=== PATIENT | male | born 1950 | race Caucasian/White ===

== ENCOUNTER → 2019-05-18 08:27 | Outpatient (CLI) | payer OTHER, SELFPAY ==
[2019-05-18 09:22] LABS: Add Manual Diff / Slide Review NO; Basophils Absolute Auto 0 /uL (0-100); Basophils Percent Auto 0.8 % (0-2); Eosinophils Absolute Auto 100 /uL (0-450); Eosinophils Percent Auto 2.9 % (2-4); Hematocrit 45.2 % (41-53); Hemoglobin 15.3 g/dL (13.5-17.5); Lymphocytes Absolute Auto 1200 /uL (1100-4500); Lymphocytes Percent Auto 24.1 % (25-40); Mean Corpuscular HGB Conc 33.9 % (30-36); Mean Corpuscular Hemoglobin 29.2 PG (26-34); Monocytes Absolute Auto 500 /uL (0-900); Monocytes Percent Auto 10.5 % (3-14); Neutrophils Absolute Auto 3100 /uL (1500-7000); Neutrophils Percent Auto 61.7 % (50-75); Platelet Count 166 X10^3/uL (150-400); Red Blood Cell Count 5.25 X10^6/uL (4.5-5.9); Red Cell Distribution Width 14.4 % (11.6-14.8)
[2019-05-18 09:26] LABS: Alanine Aminotransferase 28 IU/L (21-72); Albumin 4.6 g/dL (3.5-5.0); Albumin Globulin Ratio 1.8 (1.0-2.8); Alkaline Phosphatase 48 U/L (38-126); Aspartate Aminotransferase 26 IU/L (17-59); BUN Creatinine Ratio 18.8 (6-22); Bilirubin Total 0.7 mg/dL (0.2-1.3); Blood Urea Nitrogen 15 mg/dL (9-20); Calcium 9.6 mg/dL (8.4-10.2); Carbon Dioxide 28 mmol/L (22-32); Chloride 102 mmol/L (98-107); Cholesterol 183 mg/dL (140-199); Estimated Glomerular Filt Rate > 60.0 mL/min (>60); Globulin 2.5 g/dL (1.7-4.1); Glucose 128 mg/dL (80-110); HDL Cholesterol 49 mg/dL (40-60); HEMOLYSIS < 15 (0-50); LDL Cholesterol Calculated 92 mg/dL (<100); Potassium 4.8 mmol/L (3.4-5.1); Sodium 140 mmol/L (137-145); Total Protein 7.1 g/dL (6.3-8.2); Triglycerides 212 mg/dL (35-150)
[2019-05-18 09:56] LABS: Thyroid Stimulating Hormone 2.25 uIU/mL (0.47-4.68)
== END ==
PROVIDERS: PCP Family Medicine; Visit Provider Internal Medicine Cardiovascular Disease
DX: I48.2 Chronic atrial fibrillation (principal); E78.5 Hyperlipidemia, unspecified
CPT/HCPCS: 36415; 80053; 80061; 83735; 84443; 85025

== ENCOUNTER → 2020-06-13 08:29 | Outpatient (CLI) | payer MEDICARE, SELFPAY ==
[2020-06-13 09:09] LABS: Add Manual Diff / Slide Review NO; Basophils Absolute Auto 0 /uL (0-100); Eosinophils Absolute Auto 100 /uL (0-450); Eosinophils Percent Auto 2.3 % (2-4); Hematocrit 44.8 % (41-53); Hemoglobin 14.9 g/dL (13.5-17.5); Lymphocytes Absolute Auto 1200 /uL (1100-4500); Lymphocytes Percent Auto 29.4 % (25-40); Mean Corpuscular HGB Conc 33.3 % (30-36); Monocytes Absolute Auto 400 /uL (0-900); Monocytes Percent Auto 9.1 % (3-14); Neutrophils Absolute Auto 2400 /uL (1500-7000); Neutrophils Percent Auto 58.2 % (50-75); Platelet Count 158 X10^3/uL (150-400); Red Blood Cell Count 5.15 X10^6/uL (4.5-5.9); Red Cell Distribution Width 13.8 % (11.6-14.8); White Blood Cell Count 4.1 X10^3/uL (4.5-11.0)
[2020-06-13 09:19] LABS: Hemoglobin A1C% w Est Avg Glu 6.4 % (4.0-6.0)
[2020-06-13 09:25] LABS: Alanine Aminotransferase 34 IU/L (<50); Albumin 4.7 g/dL (3.5-5.0); Albumin Globulin Ratio 1.8 (1.0-2.8); Alkaline Phosphatase 52 U/L (38-126); Aspartate Aminotransferase 35 IU/L (17-59); BUN Creatinine Ratio 19.4 (6-22); Blood Urea Nitrogen 14 mg/dL (9-20); Calcium 9.4 mg/dL (8.4-10.2); Carbon Dioxide 25 mmol/L (22-32); Chloride 104 mmol/L (98-107); Cholesterol 191 mg/dL (140-199); Estimated Glomerular Filt Rate > 60.0 mL/min (>60); Globulin 2.6 g/dL (1.7-4.1); Glucose 114 mg/dL (80-110); HDL Cholesterol 51 mg/dL (40-60); HEMOLYSIS < 15 (0-50); LDL Cholesterol Calculated 97 mg/dL (<100); Potassium 4.3 mmol/L (3.4-5.1); Sodium 137 mmol/L (137-145); Total Protein 7.3 g/dL (6.3-8.2); Triglycerides 216 mg/dL (35-150)
[2020-06-13 09:55] LABS: TSH w/ Reflex to FT4 2.19 uIU/mL (0.47-4.68)
== END ==
PROVIDERS: PCP Registered Nurse Diabetes Educator; Referring Provider Registered Nurse Diabetes Educator; Visit Provider Registered Nurse Diabetes Educator
DX: E78.00 Pure hypercholesterolemia, unspecified (principal); R73.01 Impaired fasting glucose; I48.20 Chronic atrial fibrillation, unspecified
CPT/HCPCS: 36415; 80053; 80061; 83036; 84443; 85025

== ENCOUNTER → 2020-08-22 09:04 | Outpatient (CLI) | payer MEDICARE, SELFPAY ==
--- NOTE | 2020-08-22 | DI.ECHO.S_ITS ---
[place] +---------+ [facility] +---------+ : : [address] : [address] : : : : [id number] : : : : Phone: [phone]---------+ Echocardiogram Report + + :Name: EMERY YARBROUGH Study Date: 08/22/2020 Height: 70 in : :[facility] Location: [facility] Weight: 219 lb : : Gender: Male BSA: 2.2 m2 : :: 1950 Age: 70 yrs BP: 129/86 mmHg: :Reason For Study: Mitral Valve- Prolapse : :Ordering Physician: Luna : :Romelia Peralta Performed By: Siomara Page : + + Interpretation Summary The patient was in atrial fibrillation with heart rates between 59-82 bpm during the exam. The left ventricle is normal in size. Left ventricular ejection fraction is estimated to be 50 +/- 5%. The right ventricle is normal in size and function. There is borderline mitral valve prolapse. There is prolapse of the posterior mitral valve leaflet(s). There is moderate mitral regurgitation. There is mild tricuspid regurgitation. The right ventricular systolic pressure is estimated to be at least 26 mmHg based on an estimated right atrial pressure of 8 mm Hg. Procedure: A two-dimensional transthoracic echocardiogram with color flow and Doppler was performed. The study quality was technically adequate. There is no prior echocardiogram noted for this patient. The patient was in atrial fibrillation with heart rates between 59-82 bpm during the exam. Left Ventricle: The left ventricle is normal in size. Proximal septal thickening is noted. There is no echo evidence for significant left ventricular outflow tract obstruction. There is no thrombus. Left ventricular ejection fraction is estimated to be 50 +/- 5%. There is a mild dyssynchronous contraction pattern, consistent with a conduction abnormality. Diastolic function could not be accurately assessed due to atrial fibrillation. Right Ventricle: The right ventricle is normal in size and function. Atria: There is severe biatrial enlargement. The right atrium is mildly dilated. There is no Doppler evidence for an interatrial shunt. Mitral Valve: The mitral valve leaflets appear mildly thickened, but open well. The mitral valve leaflets are slightly calcified. There is prolapse of the posterior mitral valve leaflet(s). There is borderline mitral valve prolapse. There is moderate mitral regurgitation. Aortic Valve: The aortic valve is trileaflet. The aortic valve opens well. There is no aortic valve stenosis. No aortic regurgitation is present. Tricuspid Valve: The tricuspid valve is normal. There is mild tricuspid regurgitation. The right ventricular systolic pressure is estimated to be at least 26 mmHg based on an estimated right atrial pressure of 8 mm Hg. Pulmonic Valve: The pulmonic valve is not well visualized. There is trace pulmonic regurgitation. Great Vessels: The aortic root is normal size. The ascending aorta is at the upper limits of normal in size. The pulmonary artery is not well visualized, but is probably normal size. The IVC is dilated (diameter is greater than 2.1 cm) yet it collapses greater than 50% with a sniff. This suggests a right atrial pressure of 8 mm Hg. Pericardium/ Pleura There is no pericardial effusion. There is no pleural effusion. MMode/2D Measurements & Calculations LVIDd: 4.9 cm LVOT diam: 2.3 cm LVIDs: 4.0 cm Ao root diam: 3.9 cm FS: 18.3 % asc Aorta Diam: 3.5 cm EPSS: 0.35 cm IVSd: 0.84 cm LVPWd: 0.82 cm LV richardson. diameter/BSA (cm/m^2): 2.3 LV sys. diameter/BSA (cm/m^2): 1.9 LA A2 area: 32.9 cm2 RA long axis: 5.6 cm LA A4 area: 35.4 cm2 RA area: 30.2 cm2 LA length (vol): 6.8 cm RA vol: 139.5 ml LA vol: 145.5 ml RA : 64.3 ml/m2 LA vol index: 67.1 ml/m2 IVC diam: 2.2 cm RVD1 (basal): 4.2 cm TAPSE: 1.9 cm Doppler Measurements & Calculations Ao V2 max: 93.2 cm/sec LVOT Max Darwin: 62.0 cm/sec Ao V2 mean: 64.4 cm/sec LV V1 max P.6 mmHg Ao max P.5 mmHg LV V1 VTI: 11.2 cm Ao mean P.9 mmHg LIN(I,D): 2.5 cm2 Ao V2 VTI: 18.3 cm LIN(V,D): 2.7 cm2 sev ratio: 0.61 LIN indexed to BSA (cm^2/m^2): 1.1 Med Peak E' Darwin: 9.2 cm/sec TR max darwin: 209.3 cm/sec Lat Peak E' Darwin: 12.0 cm/sec TR max P.6 mmHg PA V2 max: 61.0 cm/sec PA V2 mean: 41.7 cm/sec PA mean P.77 mmHg PA Accel Time: 0.10 sec SV(LVOT): 45.6 ml Reading Physician:12:28 PM
== END ==
PROVIDERS: PCP Registered Nurse Diabetes Educator; Referring Provider Registered Nurse Diabetes Educator; Visit Provider Internal Medicine Cardiovascular Disease
DX: I08.1 Rheumatic disorders of both mitral and tricuspid valves (principal)
CPT/HCPCS: 93306

== ENCOUNTER → 2021-07-27 08:45 | Outpatient (CLI) | payer OTHER, SELFPAY ==
[2021-07-27 10:11] LABS: Hemoglobin 15.2 g/dL (13.5-17.5); Mean Corpuscular Hemoglobin 28.8 PG (26-34); Mean Corpuscular Volume 87.4 fL (80-100); Platelet Count 154 X10^3/uL (150-400); Red Blood Cell Count 5.26 X10^6/uL (4.5-5.9); Red Cell Distribution Width 13.8 % (11.6-14.8); White Blood Cell Count 4.2 X10^3/uL (4.5-11.0)
[2021-07-27 10:17] LABS: Hemoglobin A1C% w Est Avg Glu 6.1 % (4.0-6.0)
[2021-07-27 10:32] LABS: Alanine Aminotransferase 28 IU/L (<50); Albumin 4.7 g/dL (3.5-5.0); Albumin Globulin Ratio 1.9 (1.0-2.8); Alkaline Phosphatase 52 U/L (38-126); Aspartate Aminotransferase 31 IU/L (17-59); BUN Creatinine Ratio 21.4 (6-22); Bilirubin Total 0.9 mg/dL (0.2-1.3); Blood Urea Nitrogen 15 mg/dL (9-20); Calcium 9.5 mg/dL (8.4-10.2); Carbon Dioxide 31 mmol/L (22-32); Chloride 101 mmol/L (98-107); Cholesterol 182 mg/dL (140-199); Estimated Glomerular Filt Rate > 60.0 mL/min (>60); Globulin 2.5 g/dL (1.7-4.1); Glucose 111 mg/dL (80-110); HDL Cholesterol 54 mg/dL (40-60); HEMOLYSIS < 15 (0-50); LDL Cholesterol Calculated 91 mg/dL (<100); Potassium 4.7 mmol/L (3.4-5.1); Sodium 140 mmol/L (137-145); Total Protein 7.2 g/dL (6.3-8.2); Triglycerides 184 mg/dL (35-150)
[2021-07-27 10:56] LABS: TSH w/ Reflex to FT4 2.73 uIU/mL (0.47-4.68)
== END ==
PROVIDERS: PCP Registered Nurse Diabetes Educator; Referring Provider Registered Nurse Diabetes Educator; Visit Provider Registered Nurse Diabetes Educator
DX: E78.00 Pure hypercholesterolemia, unspecified (principal); R73.01 Impaired fasting glucose; I10 Essential (primary) hypertension
CPT/HCPCS: 36415; 80053; 80061; 83036; 84443; 85027; 86900; 86901

== ENCOUNTER → 2022-07-14 12:35 | Outpatient (CLI) | payer OTHER, SELFPAY ==
--- NOTE | 2022-07-14 12:37 | DI.ECHO.S_ITS ---
[place] +---------+ Hospital +---------+ : : [address] : : : : [id number] : : : : Phone: [phone] : [phone]---------+ Echocardiogram Report + + :Name: EMERY YARBROUGH Study Date: 07/14/2022 Height: 70.5 in: :[facility] ReadingLocation: Weight: 205 lb : : Gender: Male BSA: 2.1 m2 : :: 1950 Age: 72 yrs BP: 131/87 mmHg: :Reason For Study: MITRAL PROLAPSE : :Ordering Physician: JACK, : :NAHID Performed By: Christina Pruett : :Referring: NAHID SANTIAGO : + + Interpretation Summary The left ventricle is normal in size. The ejection fraction is estimated to be 50-55%. Previously LVEF 50A?5%. The right ventricle is mildly dilated. The right ventricular systolic function is normal. There is prolapse of the posterior mitral valve leaflet(s). There is borderline mitral valve prolapse. There is moderate mitral regurgitation. Compared to the prior echo study, there has been no change in the severity of mitral regurgitation. There is mild tricuspid regurgitation. Compared to the prior echo exam, there has been no change in TR severity. The right ventricular systolic pressure is estimated to be at least 28 mmHg based on an estimated right atrial pressure of 3 mm Hg. Procedure: A two-dimensional transthoracic echocardiogram with color flow and Doppler was performed. The study quality was technically adequate. There is no prior echocardiogram noted for this patient. The patient was in atrial fibrillation with heart rates between 63-83 bpm during the exam. Left Ventricle: The left ventricle is normal in size. Proximal septal thickening is noted. There is no thrombus. The ejection fraction is estimated to be 50-55%. There is a mild dyssynchronous contraction pattern, consistent with a conduction abnormality. Diastolic function could not be accurately assessed due to atrial fibrillation. E/E' med: 5.4. No significant diastolic dysfunction. Right Ventricle: The right ventricle is mildly dilated. The right ventricular systolic function is normal. Atria: The left atrium is severely dilated. Both atria have remained unchanged in size since the prior echo exam. The right atrium is severely dilated. There is no Doppler evidence for an interatrial shunt. Mitral Valve: There is mild mitral annular calcification. The mitral valve leaflets are slightly calcified. The mitral valve leaflets appear borderline thickened, but open well. There is borderline mitral valve prolapse. There is prolapse of the posterior mitral valve leaflet(s). There is moderate mitral regurgitation. Compared to the prior echo study, there has been no change in the severity of mitral regurgitation. Mostly central jet. Aortic Valve: The aortic valve is trileaflet. The aortic valve opens well. The aortic valve is slightly calcified. There is no aortic valve stenosis. There is trace aortic regurgitation. Tricuspid Valve: The tricuspid valve is normal in structure and function. There is mild tricuspid regurgitation. The right ventricular systolic pressure is estimated to be at least 28 mmHg based on an estimated right atrial pressure of 3 mm Hg. Compared to the prior echo exam, there has been no change in TR severity. Pulmonic Valve: The pulmonic valve is not well seen, but is grossly normal. There is mild pulmonic regurgitation. Great Vessels: The aortic root is normal size. The dimensions of the ascending aorta are normal. The IVC is of normal diameter and collapses greater than 50% with a sniff. This suggests a low right atrial pressure of 3 mm Hg. Pericardium/ Pleura There is no pericardial effusion. There is no pleural effusion. MMode/2D Measurements & Calculations LVIDd: 4.9 cm LVOT diam: 2.3 cm LVIDs: 3.3 cm Ao root diam: 3.7 cm FS: 33.8 % asc Aorta Diam: 3.6 cm EPSS: 0.68 cm Ao Arch Diam (Prox Trans): 3.2 cm IVSd: 0.92 cm LVPWd: 1.1 cm LV richardson. diameter/BSA (cm/m^2): 2.3 LV sys. diameter/BSA (cm/m^2): 1.5 LA A2 area: 38.1 cm2 RA long axis: 6.1 cm LA A4 area: 34.4 cm2 RA area: 27.2 cm2 LA length (vol): 7.2 cm RA vol: 103.0 ml LA vol: 153.4 ml RA : 48.6 ml/m2 LA vol index: 72.4 ml/m2 IVC diam: 1.9 cm RVD1 (basal): 4.6 cm TAPSE: 2.0 cm Doppler Measurements & Calculations Ao V2 max: 94.4 cm/sec LVOT Max Darwin: 75.0 cm/sec Ao V2 mean: 66.9 cm/sec LV V1 max P.3 mmHg Ao max P.6 mmHg LV V1 VTI: 15.1 cm Ao mean P.0 mmHg LIN(I,D): 3.5 cm2 Ao V2 VTI: 17.7 cm LIN(V,D): 3.2 cm2 sev ratio: 0.85 LIN indexed to BSA (cm^2/m^2): 1.6 MV E max darwin: 83.4 cm/sec TR max darwin: 248.1 cm/sec MV A max darwin: 1.7 cm/sec TR max P.6 mmHg MV E/A: 49.2 PA V2 max: 86.0 cm/sec Med Peak E' Darwin: 15.4 cm/sec PA V2 mean: 55.4 cm/sec E/E' med: 5.4 PA mean P.5 mmHg Lat Peak E' Darwin: 15.0 cm/sec PA pr(Accel): 39.6 mmHg E/E' lat: 5.6 E/e' average: 5.5 MV dec time: 0.18 sec MR ERO: 0.16 cm2 MR PISA: 2.3 cm2 SV(LVOT): 61.1 ml MR flow rate: 85.7 cm3/sec MR PISA radius: 0.61 cm Reading Physician:10:02 AM
== END ==
PROVIDERS: PCP Registered Nurse Diabetes Educator; Referring Provider Internal Medicine Cardiovascular Disease; Visit Provider Internal Medicine Cardiovascular Disease
DX: I08.1 Rheumatic disorders of both mitral and tricuspid valves
CPT/HCPCS: 93306

== ENCOUNTER → 2022-08-13 11:14 | Outpatient (CLI) | payer OTHER, SELFPAY ==
[2022-08-13 11:50] LABS: Hemoglobin 15.3 g/dL (13.5-17.5); Mean Corpuscular HGB Conc 33.3 % (30-36); Mean Corpuscular Hemoglobin 28.9 PG (26-34); Mean Corpuscular Volume 86.8 fL (80-100); Platelet Count 149 X10^3/uL (150-400); Red Blood Cell Count 5.29 X10^6/uL (4.5-5.9); Red Cell Distribution Width 14.3 % (11.6-14.8)
[2022-08-13 12:08] LABS: Hemoglobin A1C% w Est Avg Glu 5.7 % (4.0-6.0)
[2022-08-13 12:35] LABS: Alanine Aminotransferase 27 IU/L (<50); Albumin 4.6 g/dL (3.5-5.0); Albumin Globulin Ratio 1.5 (1.0-2.8); Alkaline Phosphatase 58 U/L (38-126); Aspartate Aminotransferase 30 IU/L (17-59); BUN Creatinine Ratio 20.9 (6-22); Bilirubin Total 0.8 mg/dL (0.2-1.3); Blood Urea Nitrogen 14 mg/dL (9-20); Carbon Dioxide 30 mmol/L (22-32); Chloride 100 mmol/L (98-107); Cholesterol 175 mg/dL (140-199); Estimated Glomerular Filt Rate > 60 mL/min (>60); Globulin 3.1 g/dL (1.7-4.1); Glucose 106 mg/dL (80-110); HDL Cholesterol 52 mg/dL (40-60); HEMOLYSIS < 15 (0-50); LDL Cholesterol Calculated 96 mg/dL (<100); Potassium 4.2 mmol/L (3.4-5.1); Sodium 139 mmol/L (137-145); Total Protein 7.7 g/dL (6.3-8.2); Triglycerides 135 mg/dL (35-150)
[2022-08-13 13:43] LABS: TSH w/ Reflex to FT4 1.93 uIU/mL (0.47-4.68)
== END ==
PROVIDERS: PCP Registered Nurse Diabetes Educator; Referring Provider Internal Medicine Cardiovascular Disease; Visit Provider Internal Medicine Cardiovascular Disease
DX: I10 Essential (primary) hypertension (principal); R73.01 Impaired fasting glucose; E78.5 Hyperlipidemia, unspecified; I48.20 Chronic atrial fibrillation, unspecified
CPT/HCPCS: 36415; 80053; 80061; 83036; 84443; 85027

== ENCOUNTER → 2022-09-13 11:01 | Outpatient (CLI) | payer OTHER, SELFPAY ==
[2022-09-13 11:53] LABS: Add Manual Diff / Slide Review NO; Basophils Absolute Auto 0 /uL (0-100); Basophils Percent Auto 0.9 % (0-2); Eosinophils Absolute Auto 100 /uL (0-450); Eosinophils Percent Auto 1.9 % (2-4); Hematocrit 44.3 % (41-53); Lymphocytes Absolute Auto 900 /uL (1100-4500); Lymphocytes Percent Auto 23.7 % (25-40); Mean Corpuscular HGB Conc 33.8 % (30-36); Mean Corpuscular Hemoglobin 29.1 PG (26-34); Mean Corpuscular Volume 85.9 fL (80-100); Monocytes Absolute Auto 300 /uL (0-900); Monocytes Percent Auto 8.7 % (3-14); Neutrophils Absolute Auto 2600 /uL (1500-7000); Neutrophils Percent Auto 64.8 % (50-75); Platelet Count 155 X10^3/uL (150-400); Red Blood Cell Count 5.16 X10^6/uL (4.5-5.9); Red Cell Distribution Width 13.9 % (11.6-14.8)
[2022-09-14 14:17] LABS: Prostate Specific Antigen Scrn 2.29 ng/mL (0.1-4.0)
== END ==
PROVIDERS: PCP Registered Nurse Diabetes Educator; Referring Provider Registered Nurse Diabetes Educator; Visit Provider Registered Nurse Diabetes Educator
DX: D69.6 Thrombocytopenia, unspecified (principal); Z12.5 Encounter for screening for malignant neoplasm of prostate
CPT/HCPCS: 36415; 85025; G0103

== ENCOUNTER → 2023-08-26 07:54 | Outpatient (CLI) | payer OTHER, SELFPAY ==
--- NOTE | 2023-08-26 07:57 | DI.ECHO.S_ITS ---
[place] +---------+ Hospital +---------+ : : [address] : : : : [id number] : : : : Phone: [phone] +---------+ Echocardiogram Report + + :Name: EMERY YARBROUGH Study Date: 08/26/2023 Height: 70 in : :[facility] ReadingLocation: Weight: 210 lb : : Gender: Male BSA: 2.1 m2 : :: 1950 Age: 73 yrs BP: 118/73 mmHg: :Reason For Study: Mitral Valve Prolapse : :Ordering Physician: JACK, : :NAHID Performed By: Jennie Mayen : :Referring: NAHID SANTIAGO : + + Interpretation Summary The patient was in atrial fibrillation with heart rates between 64-97 bpm during the exam. The left ventricle is normal in size. The left ventricular ejection fraction is normal. The ejection fraction is estimated to be 60-65%. Previous LVEF 50 to 55%. The right ventricle is mildly dilated. The right ventricular systolic function is normal. No obvious prolapse of posterior mitral leaflet. Previously borderline prolapse. There is moderate mitral regurgitation. Compared to the prior echo study, there has been no change in the severity of mitral regurgitation. There is mild tricuspid regurgitation. Compared to the prior echo exam, there has been no change in TR severity. The right ventricular systolic pressure is estimated to be at least 24 mmHg based on an estimated right atrial pressure of 3 mm Hg. Procedure: A two-dimensional transthoracic echocardiogram with color flow and Doppler was performed. The study quality was technically adequate. Comparison is made with the echocardiogram of 07/14/2022. The patient was in atrial fibrillation with heart rates between 64-97 bpm during the exam. Left Ventricle: The left ventricle is normal in size. Proximal septal thickening is noted. Left ventricular wall thickness is mildly increased. There is no thrombus. The ejection fraction is estimated to be 60-65%. The left ventricular ejection fraction is normal. There are no focal wall motion abnormalities. Diastolic function could not be accurately assessed due to atrial fibrillation. Right Ventricle: The right ventricle is mildly dilated. The right ventricular systolic function is normal. Atria: The left atrium is severely dilated. There has been no significant change since the previous study. Right atrial size is normal. The right atrium has significantly decreased in size since the prior echo exam. There is no Doppler evidence for an interatrial shunt. Mitral Valve: The mitral valve leaflets are slightly calcified. There is mild mitral annular calcification. No obvious prolapse of posterior mitral leaflet. Previously borderline prolapse. There is no mitral valve stenosis. There is moderate mitral regurgitation. Compared to the prior echo study, there has been no change in the severity of mitral regurgitation. Aortic Valve: The aortic valve is trileaflet. There is mild aortic valve sclerosis. There is no aortic valve stenosis. There is trace aortic regurgitation. Tricuspid Valve: The tricuspid valve is normal. There is no tricuspid stenosis. There is mild tricuspid regurgitation. Compared to the prior echo exam, there has been no change in TR severity. The right ventricular systolic pressure is estimated to be at least 24 mmHg based on an estimated right atrial pressure of 3 mm Hg. Pulmonic Valve: The pulmonic valve is not well visualized. There is no pulmonic valvular stenosis. There is trace pulmonic regurgitation. Great Vessels: The aortic root is normal size. The ascending aorta is at the upper limits of normal in size. The pulmonary artery is normal size. The IVC is of normal diameter and collapses greater than 50% with a sniff. This suggests a low right atrial pressure of 3 mm Hg. Pericardium/ Pleura There is no pericardial effusion. There is no pleural effusion. MMode/2D Measurements & Calculations LVIDd: 3.7 cm LVOT diam: 2.2 cm LVIDs: 2.7 cm Ao root diam: 3.5 cm FS: 27.0 % asc Aorta Diam: 3.6 cm IVSd: 1.1 cm LVPWd: 1.3 cm LV richardson. diameter/BSA (cm/m^2): 1.7 LV sys. diameter/BSA (cm/m^2): 1.3 LA A2 area: 28.1 cm2 RA long axis: 5.7 cm LA A4 area: 25.8 cm2 RA area: 16.8 cm2 LA length (vol): 6.3 cm RA vol: 42.0 ml LA vol: 98.5 ml RA : 19.7 ml/m2 LA vol index: 46.2 ml/m2 RVD1 (basal): 4.6 cm LVLs ap4: 6.2 cm LVLd ap2: 7.1 cm TAPSE_phl: 1.9 cm LVLs ap2: 6.4 cm Doppler Measurements & Calculations Ao V2 max: 103.0 cm/sec LVOT Max Darwin: 90.2 cm/sec Ao V2 mean: 70.7 cm/sec LV V1 max P.3 mmHg Ao max P.0 mmHg LV V1 VTI: 17.4 cm Ao mean P.0 mmHg LIN(I,D): 3.5 cm2 Ao V2 VTI: 19.0 cm LIN(V,D): 3.3 cm2 sev ratio: 0.92 LIN indexed to BSA (cm^2/m^2): 1.6 Med Peak E' Darwin: 14.3 cm/sec TR max darwin: 226.0 cm/sec Lat Peak E' Darwin: 17.4 cm/sec TR max P.7 mmHg SV(LVOT): 66.1 ml AV VR_phl: 0.88 LIN(VTI)/BSA_phl: 1.6 Reading Physician:01:42 PM
== END ==
PROVIDERS: PCP Registered Nurse Diabetes Educator; Referring Provider Internal Medicine Cardiovascular Disease; Visit Provider Internal Medicine Cardiovascular Disease
DX: I08.3 Combined rheumatic disorders of mitral, aortic and tricuspid valves (principal)
CPT/HCPCS: 93306

== ENCOUNTER → 2024-02-03 14:15 | Outpatient (CLI) | payer OTHER, SELFPAY ==
[2024-02-03 14:56] LABS: Influenza A - CEPHEID Flu A NEGATIVE (NEGATIVE); Influenza B - CEPHEID Flu B NEGATIVE (NEGATIVE); Respiratory Syncytial Virus Negative (Negative)
[2024-02-03 14:59] LABS: COVID-19 CEPHEID 4-PLEX PCR Negative (Negative)
== END ==
PROVIDERS: PCP Registered Nurse Diabetes Educator; Visit Provider Nurse Practitioner Family
DX: J06.9 Acute upper respiratory infection, unspecified (principal)
CPT/HCPCS: 0241U

== ENCOUNTER → 2024-08-02 10:13 | Outpatient (CLI) | payer OTHER, SELFPAY ==
[2024-08-02 11:28] LABS: Hematocrit 43.6 % (41-53); Hemoglobin 14.6 g/dL (13.5-17.5); Mean Corpuscular HGB Conc 33.5 % (30-36); Mean Corpuscular Hemoglobin 29.2 PG (26-34); Mean Corpuscular Volume 87.1 fL (80-100); Platelet Count 167 X10^3/uL (150-400); Red Blood Cell Count 5.01 X10^6/uL (4.5-5.9); Red Cell Distribution Width 14.1 % (11.6-14.8); White Blood Cell Count 3.3 X10^3/uL (4.5-11.0)
[2024-08-02 11:36] LABS: Hemoglobin A1C% w Est Avg Glu 5.9 % (4.0-6.0)
[2024-08-02 11:47] LABS: Alanine Aminotransferase 33 IU/L (<50); Albumin 4.4 g/dL (3.5-5.0); Albumin Globulin Ratio 1.8 (1.0-2.8); Alkaline Phosphatase 53 U/L (38-126); Aspartate Aminotransferase 36 IU/L (17-59); BUN Creatinine Ratio 14.1 (6-22); Bilirubin Total 0.9 mg/dL (0.2-1.3); Blood Urea Nitrogen 10 mg/dL (9-20); Calcium 9.3 mg/dL (8.4-10.2); Carbon Dioxide 28 mmol/L (22-32); Chloride 101 mmol/L (98-107); Cholesterol 166 mg/dL (140-199); Estimated Glomerular Filt Rate > 60 mL/min (>60); Globulin 2.4 g/dL (1.7-4.1); Glucose 124 mg/dL (80-110); HDL Cholesterol 45 mg/dL (40-60); HEMOLYSIS < 15 (0-50); LDL Cholesterol Calculated 93 mg/dL (<100); Potassium 4.5 mmol/L (3.4-5.1); Sodium 134 mmol/L (137-145); Total Protein 6.8 g/dL (6.3-8.2); Triglycerides 138 mg/dL (35-150)
== END ==
PROVIDERS: PCP Registered Nurse Diabetes Educator; Referring Provider Registered Nurse Diabetes Educator; Visit Provider Registered Nurse Diabetes Educator
DX: I10 Essential (primary) hypertension (principal); R73.01 Impaired fasting glucose; E78.5 Hyperlipidemia, unspecified; Z13.1 Encounter for screening for diabetes mellitus; E78.00 Pure hypercholesterolemia, unspecified
CPT/HCPCS: 36415; 80053; 80061; 83036; 85027

== ENCOUNTER → 2025-04-04 07:51 | Outpatient (CLI) | payer OTHER, SELFPAY ==
--- NOTE | 2025-04-04 07:52 | DI.ECHO.S_ITS ---
[place] +---------+ Hospital : : [address] : [address] : : [id number] : : Phone: [phone] Echocardiogram Report + + :Name: EMERY YARBROUGH Study Date: 04/04/2025 Height: 70 in : :[facility] ReadingLocation: Weight: 215 lb : : Gender: Male BSA: 2.2 m2 : :: 1950 Age: 74 yrs BP: 127/77 mmHg: :Reason For Study: MITRAL VALVE REGURGITATION : :Ordering Physician: DREAD, : :TOM Landaverde Performed By: Evert Lara : :Referring: TOM CANADA W : + + Interpretation Summary The left ventricle is normal in size. Left ventricular ejection fraction is estimated to be 55 +/- 5%. LVEF is fluctuating. In July 2020, 50 +/- 5%. In June 2022, 50 to 55%. July 2023, 60 to 65%. The right ventricle is borderline dilated. The right ventricular systolic function is normal. The left atrium is severely dilated. The left atrium has remained unchanged in size since the prior echo exam. There is mild to moderate mitral regurgitation. Previously moderate MR. There is mild to moderate tricuspid regurgitation. Previously mild TR. The right ventricular systolic pressure is estimated to be at least 35 mmHg based on an estimated right atrial pressure of 3 mm Hg. Previously 24 mmHg. Procedure: A two-dimensional transthoracic echocardiogram with color flow and Doppler was performed. The study quality was technically adequate. Comparison is made with the echocardiogram of 08/26/2023. The patient was in atrial fibrillation with controlled ventricular rate during the exam. Left Ventricle: The left ventricle is normal in size. Proximal septal thickening is noted. There is no ventricular septal defect visualized. There is no thrombus. Left ventricular ejection fraction is estimated to be 55 +/- 5%. There are no focal wall motion abnormalities. Diastolic function could not be accurately assessed due to atrial fibrillation. Right Ventricle: The right ventricle is borderline dilated. There has been no significant change since the previous study. The right ventricular systolic function is normal. Atria: The left atrium is severely dilated. The left atrium has remained unchanged in size since the prior echo exam. Right atrial size is normal. There is no Doppler evidence for an interatrial shunt. Mitral Valve: The mitral valve leaflets are mildly calcified. There is a flat closure plane of the the mitral valve leaflets. There is mild to moderate mitral regurgitation. Aortic Valve: The aortic valve is trileaflet. The aortic valve is slightly calcified. The aortic valve opens well. There is trace aortic regurgitation. Tricuspid Valve: The tricuspid valve leaflets are thin and pliable. The tricuspid valve is normal in structure but is abnormal in function. The tricuspid valve is normal. There is mild to moderate tricuspid regurgitation. The right ventricular systolic pressure is estimated to be at least 35 mmHg based on an estimated right atrial pressure of 3 mm Hg. Pulmonic Valve: The pulmonic valve is not well visualized. There is no pulmonic valvular regurgitation. Great Vessels: The aortic root is normal size. The pulmonary artery is normal size. The IVC is of normal diameter and collapses greater than 50% with a sniff. This suggests a low right atrial pressure of 3 mm Hg. Pericardium/ Pleura There is no pericardial effusion. There is no pleural effusion. MMode/2D Measurements & Calculations LVIDd: 5.0 cm LVOT diam: 2.5 cm LVIDs: 3.7 cm Ao root diam: 3.7 cm FS: 26.9 % EPSS: 0.67 cm IVSd: 1.1 cm LVPWd: 1.0 cm LV richardson. diameter/BSA (cm/m^2): 2.3 LV sys. diameter/BSA (cm/m^2): 1.7 LA A2 area: 42.6 cm2 RA long axis: 4.9 cm LA A4 area: 37.9 cm2 RA area: 14.1 cm2 LA length (vol): 6.9 cm RA vol: 34.1 ml LA vol: 197.9 ml RA : 15.8 ml/m2 LA vol index: 91.9 ml/m2 IVC diam: 1.9 cm RVD1 (basal): 3.9 cm RVD2 (mid): 3.4 cm TAPSE: 2.2 cm Doppler Measurements & Calculations Ao V2 max: 108.2 cm/sec LVOT Max Darwin: 74.2 cm/sec Ao V2 mean: 70.5 cm/sec LV V1 max P.2 mmHg Ao max P.7 mmHg LV V1 VTI: 13.2 cm Ao mean P.2 mmHg LIN(I,D): 3.3 cm2 Ao V2 VTI: 18.7 cm LIN(V,D): 3.3 cm2 sev ratio: 0.70 LIN indexed to BSA (cm^2/m^2): 1.6 MV E max darwin: 57.4 cm/sec TR max darwin: 288.1 cm/sec MV A max darwin: 16.2 cm/sec TR max P.2 mmHg MV E/A: 3.5 PA V2 max: 88.2 cm/sec Med Peak E' Darwin: 14.8 cm/sec PA V2 mean: 46.7 cm/sec E/E' med: 3.9 PA mean P.1 mmHg Lat Peak E' Darwin: 12.0 cm/sec PA pr(Accel): 67.0 mmHg E/E' lat: 4.8 E/e' average: 4.3 MV dec time: 0.16 sec SV(LVOT): 62.5 ml Reading Physician:04:43 PM
== END ==
PROVIDERS: PCP Registered Nurse Diabetes Educator; Referring Provider Nurse Practitioner; Visit Provider Nurse Practitioner
DX: I08.1 Rheumatic disorders of both mitral and tricuspid valves (principal)
CPT/HCPCS: 93306

== ENCOUNTER → 2025-05-11 09:09 | Outpatient (CLI) | payer OTHER, SELFPAY ==
[2025-05-11 11:08] LABS: Hematocrit 43.7 % (41-53); Hemoglobin 14.7 g/dL (13.5-17.5); Mean Corpuscular HGB Conc 33.8 % (30-36); Mean Corpuscular Hemoglobin 29.4 PG (26-34); Mean Corpuscular Volume 87.1 fL (80-100); Platelet Count 182 X10^3/uL (150-400)
[2025-05-11 11:31] LABS: Alanine Aminotransferase 21 IU/L (<50); Albumin 4.5 g/dL (3.5-5.0); Albumin Globulin Ratio 1.9 (1.0-2.8); Alkaline Phosphatase 65 U/L (38-126); Blood Urea Nitrogen 13 mg/dL (9-20); Calcium 9.2 mg/dL (8.4-10.2); Carbon Dioxide 30 mmol/L (22-32); Chloride 102 mmol/L (98-107); Cholesterol 176 mg/dL (140-199); Estimated Glomerular Filt Rate > 60 mL/min (>60); Globulin 2.4 g/dL (1.7-4.1); Glucose 105 mg/dL (70-99); HDL Cholesterol 42 mg/dL (40-60); HEMOLYSIS < 15 (0-50); Potassium 4.6 mmol/L (3.4-5.1); Sodium 135 mmol/L (137-145); Total Protein 6.9 g/dL (6.3-8.2); Triglycerides 161 mg/dL (35-150)
[2025-05-11 13:28] LABS: Hemoglobin A1C% w Est Avg Glu 5.7 % (4.0-6.0)
== END ==
PROVIDERS: PCP Registered Nurse Diabetes Educator; Referring Provider Nurse Practitioner; Visit Provider Nurse Practitioner
DX: E78.5 Hyperlipidemia, unspecified (principal); R73.01 Impaired fasting glucose; I10 Essential (primary) hypertension; I48.91 Unspecified atrial fibrillation; Z79.899 Other long term (current) drug therapy
CPT/HCPCS: 36415; 80053; 80061; 83036; 85027

== ENCOUNTER 2025-08-14 16:19 | Inpatient (IN) | payer OTHER, SELFPAY ==
[2025-08-14] VITALS (12 sets, daily range): BP systolic 100–130; BP diastolic 49–63; PULSE 92–111; RESP 23–44; TEMP 36–37.8; O2SAT 87–100; BMI 28.5
--- NOTE | 2025-08-14 16:45 | EKG_ITS ---
[address] [address] [place] [address] Test Date: 2025-08-14 Pat Name: David Kent Department: [facility] Room: Gender: Male Online Journalist: JERRY : 1950 Requested By: Order Number: [id number] Reading MD: Manny Heart MD Measurements Intervals [place] Rate: 113 P: DC: QRS: -43 QRSD: 98 T: 24 QT: 316 QTc: 433 Interpretive Statements Atrial fibrillation with rapid ventricular response Left axis deviation Nonspecific T wave abnormality NO PRIOR TRACING Electronically Signed On 08-15-2025 7:37:51 PDT by Manny Heart MD
--- NOTE | 2025-08-14 16:45 | DI.RAD.S_ITS ---
PROCEDURE: XR CHEST 1V INDICATIONS: Shortness of breath TECHNIQUE: One view of the chest was acquired. COMPARISON: None. FINDINGS AND IMPRESSION: No dense airspace disease or pleural effusion on this single view study. Mild cardiomegaly. Degenerative osseous changes. Dictated by: Karlo Stratton M.D. on 08/14/2025 at 18:15 Approved by: Karlo Stratton M.D. on 08/14/2025 at 18:16
[2025-08-14 17:13] LABS: Add Manual Diff / Slide Review NO; Hematocrit 44.7 % (41-53); Hemoglobin 15.1 g/dL (13.5-17.5); Lymphocytes Absolute Auto 300 /uL (1100-4500); Mean Corpuscular HGB Conc 33.9 % (30-36); Mean Corpuscular Hemoglobin 29.1 PG (26-34); Mean Corpuscular Volume 85.9 fL (80-100); Platelet Count 138 X10^3/uL (150-400)
[2025-08-14 17:23] LABS: INR 1.8 (0.9-1.3); Prothrombin Time 19.8 SECONDS (9.4-12.5)
--- NOTE | 2025-08-14 17:23 | DI.CT.S_ITS ---
PROCEDURE: CT CHEST ABD PEL W CON INDICATIONS: Fever nausea vomiting TECHNIQUE: After the administration of intravenous contrast, 5 mm thick sections acquired from the lung apices to the symphysis. 5 mm coronal and sagittal reformats were performed, with additional 7 mm MIP reformats through the lungs. For radiation dose reduction, the following was used: automated exposure control, adjustment of mA and/or kV according to patient size. COMPARISON: None. FINDINGS: Image quality: Mild motion artifact Lungs and pleura: No dense airspace disease or pleural effusion. Mild lower lung opacities and atelectasis are present. Mediastinum, heart, and esophagus: Cardiomegaly. Coronary calcifications. No enlarged lymph nodes identified by size criteria. Chest wall and thyroid: Unremarkable Liver: Unremarkable Gallbladder and biliary system: Unremarkable, nondilated Pancreas: No ductal dilation Spleen: Nonenlarged Adrenals: No discrete nodules Kidneys: No solid renal mass. Left upper pole renal cyst. No hydronephrosis. Vessels and lymph nodes: The main portal vein is patent. Mild aortoiliac atherosclerotic calcifications. No abdominal aneurysm. No enlarged lymph nodes identified by size criteria. Bowel and peritoneum: No small bowel obstruction. Diffuse colonic diverticulosis. Moderate rectal stool ball. No acute bowel inflammation identified. No drainable abscess or ascites. Body wall: Mild left fat containing inguinal hernia. Pelvis: Under distended urinary bladder. Prostatomegaly and heterogeneous appearance, nonspecific and not well assessed on CT Bones: No aggressive appearing osseous finding. Diffuse degenerative changes are seen. IMPRESSION: Mild dependent lung opacities and atelectasis. No large airspace consolidation or pleural effusion. Consider future imaging surveillance to assess for resolution. Cardiomegaly and coronary calcifications. No acute finding in the abdomen/pelvis. Other incidental findings above. Dictated by: Karlo Stratton M.D. on 08/14/2025 at 18:45 Approved by: Karlo Stratton M.D. on 08/14/2025 at 18:50
--- NOTE | 2025-08-14 17:23 | DI.RAD.S_ITS ---
PROCEDURE: XR ANKLE LT MIN 3V INDICATIONS: Pain/swelling TECHNIQUE: 3 views of the ankle were acquired. COMPARISON: None. FINDINGS AND IMPRESSION: No relevant comparisons are available. Fixation screws are seen throughout the talus and medial malleolus, some may be broken or had portions removed. Age-indeterminate fracture deformities and periarticular bone fragments are seen in the superior posterior talus and around the lateral and medial malleoli. Diffuse soft tissue swelling. Possibly post-traumatic arthritic changes and joint space loss throughout the tibiotalar and subtalar joints. If there is further concern, consider cross-sectional imaging. Dictated by: Karlo Stratton M.D. on 08/14/2025 at 18:26 Approved by: Karlo Stratton M.D. on 08/14/2025 at 18:28
--- NOTE | 2025-08-14 17:25 | ED.NAVMDI ---
HPI - Nausea/Vomiting/Diarrhea General Chief complaint: Shortness of Breath/Dyspnea Stated complaint: Low Oxygen Level 84, dizziness, low grade temp Time Seen by Provider: 08/14/25 17:08 Source: patient Mode of arrival: Family Vehicle History of Present Illness HPI Narrative: Patient here for nausea and vomiting since yesterday. Has left medial ankle redness and swelling for the past 2 days. Patient had surgery on his left ankle years ago. Patient denies any recent foreign travel no known sick contacts. Patient does have history of atrial fibrillation on Pradaxa and metoprolol followed by cardiology [facility] Dr. Peralta. Fever noted. Patient is requiring supplemental oxygen. No prior history of lung disease. Patient states does feel short of breath. Related Data Home Medications ?Medication ?Instructions ?Recorded ?Confirmed fluticasone propionate 50 2 spray intranasal DAILY PRN 04/02/19 09/05/24 mcg/actuation nasal allergy symptoms spray,suspension (Flonase Allergy Relief) Previous Rx's ?Medication ?Instructions ?Recorded diph,pertuss(acel),tet vac(PF) 2 0.5 ml IM ONCE Encounter for 02/04/21 Lf-(2.5-5-3-5mcg)-5 Lf/0.5 mL IM Immunization #0.5 mL syringe (Adacel (Tdap Adolesn/Adult)(PF)) atorvastatin 20 mg tablet 20 mg PO DAILY #90 tabs 07/28/21 dabigatran etexilate 75 mg capsule 75 mg PO BID #180 caps 07/28/21 (Pradaxa) metoprolol succinate 25 mg 25 mg PO DAILY #90 tabs 07/28/21 tablet,extended release 24 hr Allergies Allergy/AdvReac Type Severity Reaction Status Date / Time No Known Drug Allergies Allergy Verified 08/14/25 17:07 Review of Systems Review of Systems Narrative: GENERAL: Positive chills, fatigue, malaise, fever, sweats. HEENT: Negative sinus pain, ear pain, sore throat RESPIRATORY: Positive dyspnea, negative cough CARDIOVASCULAR: Negative chest pain, palpitations GASTROINTESTINAL: Positive vomiting, nausea, negative abdominal pain : Negative dysuria, frequency, hematuria MUSCULOSKELETAL: Negative muscle or bony pain SKIN: Negative rash, skin lesions, positive skin wound NEUROLOGIC: Negative weakness, numbness ROS Unobtainable: All systems reviewed & are unremarkable except as noted in HPI and below Patient History Medical History (Updated 08/14/25 @ 18:53 by Garcia Perdomo MD) History of nonmelanoma skin cancer Dyslipidemia Hypertension Impaired fasting glucose Family History Brother Age: 80 Pulmonary emphysema, unspecified emphysema type Father Age: 103 Alzheimer's dementia without behavioral disturbance, Alzheimer's disease of unspecified onset Grandmother Secondary hypertension, unspecified Glaucoma Mother Age: 102 Breast cancer genetic susceptibility Skin cancer Arthritis Grandmother Alzheimer's dementia without behavioral disturbance, Alzheimer's disease of unspecified onset Social History household members: spouse Smoking Status: Never smoker second hand exposure: No alcohol intake: current substance use type: does not use Smoking Status: Never smoker Exam Narrative Exam Narrative: GENERAL: in no distress, not toxic not dyspneic HEAD: Normocephalic. EYES: Pupils equal round ENT: Mucous membranes moist. NECK: Trachea midline. CARDIOVASCULAR: Tachycardic, irregularly irregular RESPIRATORY: Clear to auscultation. Breath sounds equal bilaterally. No wheezes, rales, or rhonchi. Patient is speaking full sentences. GASTROINTESTINAL: Abdomen soft, non-tender EXTREMITIES: No gross deformities. Examination left medial ankle there is erythema at surgical site and extending erythema proximally. No crepitus no pain out of portion exam. It is mildly tender to touch. Patient has chronic limited range of motion due to fixed hardware to the ankle. Foot otherwise warm soft pink. No necrotizing fasciitis. No crepitus. BACK: No flank tenderness. NEURO: AOx4. Clear speech SKIN: Warm and dry PSYCH: Not anxious, is cooperative Initial Vital Signs Initial Vital Signs: Vital Signs Temperature 100.1 F H 08/14/25 17:06 Pulse Rate 109 H 08/14/25 17:06 Respiratory Rate 29 H 08/14/25 17:06 Blood Pressure 130/63 08/14/25 17:06 Pulse Oximetry 100 08/14/25 17:06 Oxygen Delivery Method Room Air 08/14/25 17:06 Course Orders Ordered: Acetaminophen (Acetaminophen 325 Mg Tablet) 650 mg PO Q6H PRN PRN Reason: Fever/Mild Pain (1-3) Al Hydrox/Mg Hydrox/Simethicone (Mag Hydrox/Alum/Simeth 30 Ml Udc) 30 ml PO Q6HR PRN PRN Reason: Dyspepsia Albuterol (Albuterol 2.5 Mg/3 Ml Neb (Adult)) 2.5 mg INH [id number] PRN PRN Reason: Shortness Of Breath Or Wheezing Atorvastatin Calcium (Atorvastatin 20 Mg Tablet) 20 mg PO DAILY [facility] Benzonatate (Benzonatate 100 Mg Capsule) 100 mg PO TID PRN PRN Reason: Cough Calcium Carbonate (Calcium Carbonate 500 Mg Tab) 1,000 mg PO Q4HR PRN PRN Reason: Dyspepsia Dabigatran (Dabigatran 75 Mg Capsule) 75 mg PO BID [facility] Last Admin: 08/14/25 20:53 Dose: Not Given Documented By: DENISE Doxycycline Hyclate (Doxycycline Hyclate 100 Mg Tablet) 100 mg PO BID [facility] Last Admin: 08/14/25 22:13 Dose: 100 mg Documented By: FM Furosemide (Furosemide 40 Mg/4 Ml Vial) 40 mg IV Q12HR [facility] Last Admin: 08/15/25 01:43 Dose: 40 mg Documented By: RODRIGUE Guaifenesin (Guaifenesin Er 600 Mg Tab) 600 mg PO Q12HR PRN PRN Reason: Cough Vancomycin HCl (Vancomycin) 1,250 mg in 250 mls @ 250 mls/hr IV Q12H [facility] Metoprolol Succinate (Metoprolol Er 25 Mg Tablet) 25 mg PO DAILY [facility] Naloxone HCl (Naloxone 0.4 Mg/Ml Vial) 0.2 mg IV Q2MIN PRN PRN Reason: Opiate Reversal Ondansetron HCl (Ondansetron 4 Mg/2 Ml Inj) 4 mg IV Q8HR PRN PRN Reason: Nausea And Vomiting Ondansetron HCl (Ondansetron 4 Mg Odt) 4 mg PO Q8HR PRN PRN Reason: Nausea And Vomiting Oxycodone HCl (Oxycodone Ir 5 Mg Tablet) 5 mg PO Q3H PRN PRN Reason: Pain, Moderate (4-6) Pantoprazole Sodium (Pantoprazole Dr 20 Mg Tablet) 20 mg PO 0600 [facility] Last Admin: 08/15/25 05:05 Dose: 20 mg Documented By: MELODY Sennosides (Sennosides 8.6 Mg Tablet) 17.2 mg PO BEDTIME [facility] Last Admin: 08/14/25 22:12 Dose: 17.2 mg Documented By: RODRIGUE Vancomycin HCl (Vancomycin Per Pharmacy) 1 request MISC NOW PRN PRN Reason: Wound Healing Vancomycin HCl (Vancomycin Trough) 1 request MIS 1230 [facility] Stop: 08/16/25 12:31 Discontinued Medications Acetaminophen (Acetaminophen 325 Mg Tablet) 975 mg PO NOW ONE Stop: 08/14/25 17:26 Last Admin: 08/14/25 18:15 Dose: 975 mg Documented By: IDALIA Albuterol/Ipratropium (Albuterol/Ipratropium 3 Ml Ampul) 3 ml INH [id number] [facility] Piperacillin Sod/Tazobactam (Sod 4.5 gm/ Sodium Chloride) 100 mls @ 200 mls/hr IV NOW ONE Stop: 08/14/25 17:30 Last Infusion: 08/14/25 19:13 Dose: Infused Documented By: Admin: 08/14/25 18:15 Dose: 200 mls/hr Documented By: IDALIA Ceftriaxone Sodium 1,000 mg/ (Sodium Chloride) 100 mls @ 200 mls/hr IV Q24H [facility] Last Infusion: 08/14/25 22:51 Dose: Infused Documented By: Admin: 08/14/25 21:03 Dose: 200 mls/hr Documented By: DENISE Vancomycin HCl 1,750 mg/ (Sodium Chloride) 500 mls @ 250 mls/hr IV Q24H [facility] Last Admin: 08/15/25 05:18 Dose: Not Given Documented By: MELODY Vancomycin HCl/Dextrose (Vancomycin) 2,000 mg in 400 mls @ 200 mls/hr IV NOW ONE Stop: 08/15/25 02:59 Last Infusion: 08/15/25 04:55 Dose: Infused Documented By: Admin: 08/15/25 01:43 Dose: 200 mls/hr Documented By: RODRIGUE Ibuprofen (Ibuprofen 400 Mg Tablet) 800 mg PO NOW ONE Stop: 08/14/25 19:21 Last Admin: 08/14/25 21:03 Dose: 800 mg Documented By: DENISE Vital Signs Vital signs: Vital Signs - 8 hr 08/14/25 17:06 08/14/25 17:19 08/14/25 17:30 Temperature 100.1 F H Pulse Rate 109 H 110 H 103 H Respiratory Rate 29 H Blood Pressure 130/63 Pulse Oximetry 100 87 L 96 Oxygen Delivery Method Room Air 08/14/25 18:04 Temperature Pulse Rate 108 H Respiratory Rate Blood Pressure Pulse Oximetry 97 Oxygen Delivery Method MDM - Nausea/Vomiting/Diarrhea Lab Data 08/15/25 04:43 08/15/25 04:43 Labs: Lab Results 08/14/25 08/14/25 08/14/25 Range/Units 17:02 17:07 18:44 WBC 11.4 H (4.5-11.0) X10^3/uL RBC 5.20 (4.5-5.9) X10^6/uL Hgb 15.1 (13.5-17.5) g/dL Hct 44.7 (41-53) % MCV 85.9 (80-100) fL MCH 29.1 (26-34) PG MCHC 33.9 (30-36) % RDW 14.9 H (11.6-14.8) % Plt Count 138 L (150-400) X10^3/uL Neut % (Auto) 93.1 H (50-75) % Lymph % (Auto) 2.5 L (25-40) % Nye % (Auto) 4.2 (3-14) % Eos % (Auto) 0.0 L (2-4) % Baso % (Auto) 0.2 (0-2) % Neut # (Auto) 82461 H (8813-7806) /uL Lymph # (Auto) 300 L (1753-9461) /uL Nye # (Auto) 500 (0-900) /uL Eos # (Auto) 0 (0-450) /uL Baso # (Auto) 0 (0-100) /uL PT 19.8 H (9.4-12.5) SECONDS INR 1.8 H (0.9-1.3) Sodium 133 L (137-145) mmol/L Potassium 4.2 (3.4-5.1) mmol/L Chloride 97 L (98-107) mmol/L Carbon Dioxide 25 (22-32) mmol/L BUN 20 (9-20) mg/dL Creatinine 0.87 (0.66-1.25) mg/dL Estimated GFR > 60 (>60) mL/min BUN/Creatinine Ratio 23.0 H (6-22) Glucose 146 H (70-99) mg/dL Lactate 1.9 (0.7-2.1) mmol/L Calcium 9.6 (8.4-10.2) mg/dL Total Bilirubin 1.6 H (0.2-1.3) mg/dL AST 75 H (17-59) IU/L ALT 31 (<50) IU/L Alkaline Phosphatase 55 (38-126) U/L Troponin I 0.015 (0.01-0.034) ng/mL NT-Pro-B Natriuret Pep 2300 H (<450) pg/mL Total Protein 8.2 (6.3-8.2) g/dL Albumin 5.0 (3.5-5.0) g/dL Globulin 3.2 (1.7-4.1) g/dL Albumin/Globulin Ratio 1.6 (1.0-2.8) Procalcitonin 1.61 H (<0.5) ng/mL Urine RBC 0-1/hpf (0-5/HPF) Urine WBC 0-1/hpf (0-5/HPF) Ur Squamous Epith Cells 0-1 /hpf (0-5/HPF) Urine Bacteria Occasional (0-1) (None) Ur Culture Indicated? Cult not indicated Vol Urine Centrifuged 10ml (spun) A.calcoaceticus-baumannii cmplx PCR Not detected (Not Detect) Bacteroides fragilis Not detected (Not Detect) Christina albicans (PCR) Not detected (Not Detect) Christina auris (PCR) Not detected (Not Detect) C. glabrata (PCR) Not detected (Not Detect) C. krusei (PCR) Not detected (Not Detect) C. parapsilosis (PCR) Not detected (Not Detect) C. tropicalis (PCR) Not detected (Not Detect) SARS-CoV-2 (PCR) Negative (Negative) C. neoform/gattii (PCR) Not detected (Not Detect) Enterobacterales (PCR) Not detected (Not Detect) E. cloacae complex PCR Not detected (Not Detect) Enterococc faecalis PCR Not detected (Not Detect) Enterococc faecium PCR Not detected (Not Detect) E. coli (PCR) Not detected (Not Detect) H. influenzae (PCR) Not detected (Not Detect) Influenza A (RT-PCR) Flu a negative (NEGATIVE) Influenza B (RT-PCR) Flu b negative (NEGATIVE) Klebsiella aerogenes (PCR) Not detected (Not Detect) Klebsiella oxytoca PCR Not detected (Not Detect) Klebsiella pneumoniae Not detected (Not Detect) List. monocytogenes PCR Not detected (Not Detect) N. meningitidis (PCR) Not detected (Not Detect) Proteus species (PCR) Not detected (Not Detect) RSV (PCR) Negative (Negative) Salmonella spp. (PCR) Not detected (Not Detect) Serratia marcescens PCR Not detected (Not Detect) Staphylococcus sp PCR Not detected (Not Detect) Staph aureus (PCR) Not detected (Not Detect) mecA/C & MREJ Resist Gene Not applicable (Not Detect) mecA/C-Methicil Resis Gene Not applicable (Not Detect) mcr-1 Colistin Res Gene PCR Not applicable (Not Detect) Staph epidermidis (PCR) Not detected (Not Detect) Staph lugdunensis PCR Not detected (Not Detect) S. maltophilia (PCR) Not detected (Not Detect) Streptococcus sp PCR Detected (Not Detect) Group A Strep (PCR) Not detected (Not Detect) Strep agalactiae (PCR) Not detected (Not Detect) Strep pneumoniae (PCR) Not detected (Not Detect) P. aeruginosa (PCR) Not detected (Not Detect) Rosemary/B-Vanco Res Genes Not applicable (Not Detect) blaIMP Car res Gene PCR Not applicable (Not Detect) KPC-Carbap Res Gene PCR Not applicable (Not Detect) blaNDM Car Res Gene PCR Not applicable (Not Detect) OXA-48 Carbapenem Resis Gene (PCR) Not applicable (Not Detect) blaVIM Car Res Gene PCR Not applicable (Not Detect) CTX-M Gene Resistance (PCR) Not applicable (Not Detect) Urine Dip Bedside Urine Glucose Negative Bedside Urine Bilirubin - Negative Bedside Urine Ketone - Negative Urine Specific Brawley 1.015 Bedside Urine Occult Blood +/- Bedside Urine pH 6.0 Bedside Urine Protein +/- 15 Bedside Urine Urobilinogen - Negative Bedside Urine Nitrite - Negative Bedside Urine Leukocytes - Negative Esterase Imaging Data Extremity x-ray #1: Radiologist's Impression: [address] [address] XRay Report Signed Patient: David Kent MR#: [id number] : 1950 Acct:[id number] Age/Sex: 75 / M Date of Service: 08/14/25 Loc: ED Accession Number: [id number] Procedure: XR ankle LT min 3V Ordering Provider: Garcia Perdomo MD PROCEDURE: XR ANKLE LT MIN 3V INDICATIONS: Pain/swelling TECHNIQUE: 3 views of the ankle were acquired. COMPARISON: None. FINDINGS AND IMPRESSION: No relevant comparisons are available. Fixation screws are seen throughout the talus and medial malleolus, some may be broken or had portions removed. Age-indeterminate fracture deformities and periarticular bone fragments are seen in the superior posterior talus and around the lateral and medial malleoli. Diffuse soft tissue swelling. Possibly post-traumatic arthritic changes and joint space loss throughout the tibiotalar and subtalar joints. If there is further concern, consider cross-sectional imaging. Dictated by: Karlo Stratton M.D. on 08/14/2025 at 18:26 Approved by: Karlo Stratton M.D. on 08/14/2025 at 18:28 Chest x-ray: Radiologist's Impression: [place] [address] XRay Report Signed Patient: David Kent MR#: [id number] : 1950 Acct:[id number] Age/Sex: 75 / M Date of Service: 08/14/25 Loc: ED Accession Number: [id number] Procedure: XR chest 1V Ordering Provider: Garcia Perdomo MD PROCEDURE: XR CHEST 1V INDICATIONS: Shortness of breath TECHNIQUE: One view of the chest was acquired. COMPARISON: None. FINDINGS AND IMPRESSION: No dense airspace disease or pleural effusion on this single view study. Mild cardiomegaly. Degenerative osseous changes. Dictated by: Karlo Stratton M.D. on 08/14/2025 at 18:15 Approved by: Karlo Stratton M.D. on 08/14/2025 at 18:16 CT chest abdomen pelvis: Radiologist's Impression: [place] [address] CT Scan Report Signed Patient: David Kent MR#: [id number] : 1950 Acct:[id number] Age/Sex: 75 / M Date of Service: 08/14/25 Loc: ED Accession Number: [id number] Procedure: CT chest abd pel w con Ordering Provider: Garcia Perdomo MD PROCEDURE: CT CHEST ABD PEL W CON INDICATIONS: Fever nausea vomiting TECHNIQUE: After the administration of intravenous contrast, 5 mm thick sections acquired from the lung apices to the symphysis. 5 mm coronal and sagittal reformats were performed, with additional 7 mm MIP reformats through the lungs. For radiation dose reduction, the following was used: automated exposure control, adjustment of mA and/or kV according to patient size. COMPARISON: None. FINDINGS: Image quality: Mild motion artifact Lungs and pleura: No dense airspace disease or pleural effusion. Mild lower lung opacities and atelectasis are present. Mediastinum, heart, and esophagus: Cardiomegaly. Coronary calcifications. No enlarged lymph nodes identified by size criteria. Chest wall and thyroid: Unremarkable Liver: Unremarkable Gallbladder and biliary system: Unremarkable, nondilated Pancreas: No ductal dilation Spleen: Nonenlarged Adrenals: No discrete nodules Kidneys: No solid renal mass. Left upper pole renal cyst. No hydronephrosis. Vessels and lymph nodes: The main portal vein is patent. Mild aortoiliac atherosclerotic calcifications. No abdominal aneurysm. No enlarged lymph nodes identified by size criteria. Bowel and peritoneum: No small bowel obstruction. Diffuse colonic diverticulosis. Moderate rectal stool ball. No acute bowel inflammation identified. No drainable abscess or ascites. Body wall: Mild left fat containing inguinal hernia. Pelvis: Under distended urinary bladder. Prostatomegaly and heterogeneous appearance, nonspecific and not well assessed on CT Bones: No aggressive appearing osseous finding. Diffuse degenerative changes are seen. IMPRESSION: Mild dependent lung opacities and atelectasis. No large airspace consolidation or pleural effusion. Consider future imaging surveillance to assess for resolution. Cardiomegaly and coronary calcifications. No acute finding in the abdomen/pelvis. Other incidental findings above. Dictated by: Karlo Stratton M.D. on 08/14/2025 at 18:45 Approved by: Karlo Stratton M.D. on 08/14/2025 at 18:50 [facility] Narrative Medical decision making narrative: Patient here for nausea and vomiting since yesterday. Has left medial ankle redness and swelling for the past 2 days. Patient had surgery on his left ankle years ago. Patient denies any recent foreign travel no known sick contacts. Patient does have history of atrial fibrillation on Pradaxa and metoprolol followed by cardiology [facility] Dr. Peralta. Fever noted. Patient is requiring supplemental oxygen. No prior history of lung disease. Patient states does feel short of breath MDM After history and exam, CBC CMP lactic acid procalcitonin blood culture Zosyn Tylenol normal saline CT chest abdomen pelvis Differential considered: Includes but not limited to sepsis pneumonia septic joint Medical records reviewed: No recent visit for this complaint Lab Test results independently reviewed as above. Pertinent findings: WBC 11.4 hemoglobin 15 INR 1.8 sodium 133 potassium 4.2 BUN 20 creatinine 0.87 total bilirubin 1.6 Independently reviewed EKG atrial fibrillation rate 113 Imaging studies independently reviewed: X-ray left ankle diffuse soft tissue swelling. Fixation screws seen throughout Chest x-ray no acute finding CT chest abdomen pelvis dependent lung opacities Consultations: 6:36 p.m.. I spoke with orthopedist Dr. Abad, at this time regarding the ankle would treat as cellulitis. Likely not septic joint. 7:22 p.m.. I spoke with hospitalist, Dr. Masters, will admit Re-evaluations: 6:45 p.m.. Updated patient and results and need for admission for further studies and antibiotics. They agree. Discussion: Appropriate for admission. Patient requiring supplemental oxygen. Antibiotics have been started. Cultures have been completed orthopedic services consulted. Diagnosis: Hypoxia, ankle cellulitis Discharge Plan Departure Patient Disposition: Admitted As Inpatient Clinical Impression: Cellulitis of left ankle Admit Date/Time: 08/14/25 19:27 Admit Provider: Favian Masters
[2025-08-14 17:26] LABS: Alanine Aminotransferase 31 IU/L (<50); Albumin 5.0 g/dL (3.5-5.0); Albumin Globulin Ratio 1.6 (1.0-2.8); Alkaline Phosphatase 55 U/L (38-126); Blood Urea Nitrogen 20 mg/dL (9-20); Calcium 9.6 mg/dL (8.4-10.2); Carbon Dioxide 25 mmol/L (22-32); Chloride 97 mmol/L (98-107); Estimated Glomerular Filt Rate > 60 mL/min (>60); Globulin 3.2 g/dL (1.7-4.1); Glucose 146 mg/dL (70-99); HEMOLYSIS 26 (0-50); Lactate (Lactic Acid) 1.9 mmol/L (0.7-2.1); Potassium 4.2 mmol/L (3.4-5.1); Sodium 133 mmol/L (137-145); Total Protein 8.2 g/dL (6.3-8.2)
[2025-08-14 17:38] LABS: NT-proBNP (BNP-Adult 18+) 2300 pg/mL (<450); Troponin I 0.015 ng/mL (0.01-0.034)
[2025-08-14 17:50] LABS: Influenza A - CEPHEID Flu A NEGATIVE (NEGATIVE); Influenza B - CEPHEID Flu B NEGATIVE (NEGATIVE)
[2025-08-14 17:59] LABS: COVID-19 CEPHEID 4-PLEX PCR Negative (Negative)
[2025-08-14] MEDS: PIPERACILLIN/TAZO 4.5 GM in SODIUM CHLORIDE 0.9% 100 ML IV (18:15)
[2025-08-14] MEDS: ACETAMINOPHEN 325 MG TABLET 975 MG PO (18:15)
[2025-08-14 18:20] LABS: Procalcitonin 1.61 ng/mL (<0.5)
[2025-08-14 19:07] LABS: Culture Indicated Urine Cult Not Indicated
[2025-08-14] MEDS: IBUPROFEN 400 MG TABLET 800 MG PO (21:03)
[2025-08-14] MEDS: SENNOSIDES 8.6 MG TABLET 17.2 MG PO (22:12)
[2025-08-14] MEDS: DOXYCYCLINE HYCLATE 100 MG TABLET PO (22:13)
--- NOTE | 2025-08-14 23:40 | P.HP_ITS ---
History of Present Illness History of Present Illness Date Patient Seen: 08/14/25 Time Patient Seen: 23:41 Chief complaint: Low Oxygen Level 84, dizziness, low grade temp Narrative: THe pt is a 75 yo who started noticing swelling, redness, and pain in the left ankle about 2 days ago. He denies any injury to the ankle that he is aware of, he did have surgery with screw fixation to the ankle in 2004 in [place]. He denies a hx of gout, and last year the rt ankle had cellulitis in it. The pt went to an Urgent Car today & was noted to be hypoxic ( he is normally on room air). He was started on 2 lpm NC and sent to the ER for evaluation. He denies any SOB, cough, fevers, chills, URIBE or any URI symtoms. He does not smoke, he has a hx of CHF and A-fib on Pradaxia & metoprolol. [facility] Medical History (Updated 08/14/25 @ 18:53 by Garcia Perdomo MD) History of nonmelanoma skin cancer Dyslipidemia Hypertension Impaired fasting glucose Family History Brother Age: 80 Pulmonary emphysema, unspecified emphysema type Father Age: 103 Alzheimer's dementia without behavioral disturbance, Alzheimer's disease of unspecified onset Grandmother Secondary hypertension, unspecified Glaucoma Mother Age: 102 Breast cancer genetic susceptibility Skin cancer Arthritis Grandmother Alzheimer's dementia without behavioral disturbance, Alzheimer's disease of unspecified onset Social History Smoking Status: Never smoker second hand exposure: No alcohol intake: current (a beer occasionally.) substance use type: does not use Meds Home Medications and Allergies Home Medications ?Medication ?Instructions ?Recorded ?Confirmed ?Type fluticasone propionate 50 2 spray intranasal DAILY PRN 04/02/19 09/05/24 History mcg/actuation nasal allergy symptoms spray,suspension (Flonase Allergy Relief) diph,pertuss(acel),tet vac(PF) 2 0.5 ml IM ONCE Encoun ter for 02/04/21 09/05/24 Rx Lf-(2.5-5-3-5mcg)-5 Lf/0.5 mL IM Immunization #0.5 mL syringe (Adacel (Tdap Adolesn/Adult)(PF)) atorvastatin 20 mg tablet 20 mg PO DAILY #90 tabs 03/1309/05/24 Rx dabigatran etexilate 75 mg capsule 75 mg PO BID #180 c aps 07/28/21 09/05/24 Rx (Pradaxa) metoprolol succinate 25 mg 25 mg PO DAILY #90 tabs 03/1309/05/24 Rx tablet,extended release 24 hr Allergies Allergy/AdvReac Type Severity Reaction Status Date / Time No Known Drug Allergies Allergy Verified 08/14/25 17:07 Exam Vital Signs (past 8 hours): - 08/14/25 17:06 08/14/25 17:19 08/14/25 17:30 Temperature 100.1 F H Pulse Rate 109 H 110 H 103 H Respiratory Rate 29 H Blood Pressure 130/63 Pulse Oximetry 100 87 L 96 Oxygen Delivery Method Room Air Oxygen Flow Rate 08/14/25 18:04 08/14/25 18:30 08/14/25 19:00 Temperature Pulse Rate 108 H 106 H 111 H Respiratory Rate 44 H 44 H Blood Pressure Pulse Oximetry 97 97 94 Oxygen Delivery Method Oxygen Flow Rate 08/14/25 19:30 08/14/25 20:00 08/14/25 20:30 Temperature Pulse Rate 106 H 102 H 96 H Respiratory Rate 37 H 36 H 32 H Blood Pressure Pulse Oximetry 93 90 L 91 Oxygen Delivery Method Oxygen Flow Rate 08/14/25 21:00 08/14/25 21:08 08/14/25 21:08 Temperature Pulse Rate 94 H 92 H 92 H Respiratory Rate 31 H 30 H 30 H Blood Pressure 114/57 L Pulse Oximetry 92 95 95 Oxygen Delivery Method Nasal Cannula Oxygen Flow Rate 4 08/14/25 21:53 Temperature 96.8 F L Pulse Rate 93 H Respiratory Rate 23 Blood Pressure 100/49 L Pulse Oximetry 96 Oxygen Delivery Method Oxygen Flow Rate 4 Oxygen Delivery Method Nasal Cannula Oxygen Flow Rate 4 Const General: cooperative and comfortable Resp Auscultation: clear to auscultation bilaterally Cardio Rate: tachycardic Rhythm: abnormal rhythm GI Percussion: normal to percussion Auscultation: normal bowel sounds Extrem Left lower extremity: ankle Details: pitting edema and warmth Objective Labs 08/14/25 17:02 08/14/25 17:02 Labs: Laboratory Results - last 24 hr 08/14/25 08/14/2525 17:02 17:07 18:44 WBC 11.4 H RBC 5.20 Hgb 15.1 Hct 44.7 MCV 85.9 MCH 29.1 MCHC 33.9 RDW 14.9 H Plt Count 138 L Neut % (Auto) 93.1 H Lymph % (Auto) 2.5 L [place] % (Auto) 4.2 Eos % (Auto) 0.0 L Baso % (Auto) 0.2 Neut # (Auto) 16679 H Lymph # (Auto) 300 L [place] # (Auto) 500 Eos # (Auto) 0 Baso # (Auto) 0 PT 19.8 H INR 1.8 H Sodium 133 L Potassium 4.2 Chloride 97 L Carbon Dioxide 25 BUN 20 Creatinine 0.87 Estimated GFR > 60 BUN/Creatinine Ratio 23.0 H Glucose 146 H Lactate 1.9 Calcium 9.6 Total Bilirubin 1.6 H AST 75 H ALT 31 Alkaline Phosphatase 55 Troponin I 0.015 NT-Pro-B Natriuret Pep 2300 H Total Protein 8.2 Albumin 5.0 Globulin 3.2 Albumin/Globulin Ratio 1.6 Procalcitonin 1.61 H Urine RBC 0-1/hpf Urine WBC 0-1/hpf Ur Squamous Epith Cells 0-1 /hpf Urine Bacteria Occasional (0-1) Ur Culture Indicated? Cult not indicated Vol Urine Centrifuged 10ml (spun) SARS-CoV-2 (PCR) Negative Influenza A (RT-PCR) Flu a negative Influenza B (RT-PCR) Flu b negative RSV (PCR) Negative Assessment & Plan Assessment & Plan narrative: I have reviewed the pt's presenting symptoms, labs and imaging with the ER provider and agree with the decision for admission. I have reviewed the labs personally showing a WBC of 11, elevated procalcitonin, elevated BNP of 2300, I have also reviewed the CT scan of the chest showing depentant atelactasis. 1. Left ankle cellulitis- there is known hardware in the ankle from the surgery in 2004, it does appear to be inflammed. We will start on empiric Vancomycin, check CRP, uric acid level. Recommend outpt ortho consult 2. Acute on chronic CHF- elevated BNP, hypoxic, will start the pt on lasix, consider echo, weaning the oxygen at this time. I dont think it is clear if he has a pneumonia or not. will reassess in am. 3. atrial fibrillation - continue on Pradaxa, home metoprolol , increase dose if pt becomes more tachycardic. Time-Based Coding :: [TOTAL MINUTES] spent with patient and on the chart (including review of chart, obtaining history, exam, reviewing outside data, placing orders, documenting exam and treatment plan, and counseling patient) on [DATE].
[2025-08-15] VITALS (8 sets, daily range): BP systolic 90–124; BP diastolic 55–69; PULSE 88–107; RESP 17–26; TEMP 36.1–36.7; O2SAT 93–97
[2025-08-15] MEDS: VANCOMYCIN 2,000 MG/400 ML PIGGYBACK 200 MG IV (01:43)
[2025-08-15] MEDS: FUROSEMIDE 40 MG/4 ML VIAL IV ×2 (01:43→11:58)
[2025-08-15 04:18] LABS: Acinetobacter calcoa-baumannii Not Detected (Not Detect); Bacteroides fragilis Not Detected (Not Detect); Candida auris Not Detected (Not Detect); Candida glabrata Not Detected (Not Detect); Cryptococcus neoformans/gatti Not Detected (Not Detect); Enterobacterales Not Detected (Not Detect); Enterococcus faecalis Not Detected (Not Detect); Enterococcus faecium Not Detected (Not Detect); Klebsiella aerogenes Not Detected (Not Detect); Proteus species Not Detected (Not Detect); Serratia marcescens Not Detected (Not Detect); Staphylococcus epidermidis Not Detected (Not Detect); Staphylococcus lugdunensis Not Detected (Not Detect); Staphylococcus species Not Detected (Not Detect); Stenotrophomonas maltophilia Not Detected (Not Detect); Streptococcus agalactiae (Gr B Not Detected (Not Detect); Streptococcus pneumonia Not Detected (Not Detect); Streptococcus pyogenes (Gr A) Not Detected (Not Detect); Streptococcus species Detected (Not Detect)
--- NOTE | 2025-08-15 04:50 | PC.NURSE ---
Assumed care of patient at 03:30.
[2025-08-15] MEDS: PANTOPRAZOLE DR 20 MG TABLET PO (05:05)
[2025-08-15 05:18] LABS: Add Manual Diff / Slide Review NO; Hematocrit 41.3 % (41-53); Hemoglobin 14.1 g/dL (13.5-17.5); Lymphocytes Absolute Auto 500 /uL (1100-4500); Mean Corpuscular HGB Conc 34.1 % (30-36); Mean Corpuscular Hemoglobin 29.3 PG (26-34); Mean Corpuscular Volume 85.8 fL (80-100); Platelet Count 106 X10^3/uL (150-400)
[2025-08-15 05:28] LABS: Blood Urea Nitrogen 23 mg/dL (9-20); Calcium 8.7 mg/dL (8.4-10.2); Carbon Dioxide 25 mmol/L (22-32); Chloride 99 mmol/L (98-107); Estimated Glomerular Filt Rate > 60 mL/min (>60); Glucose 125 mg/dL (70-99); HEMOLYSIS < 15 (0-50); Potassium 3.5 mmol/L (3.4-5.1); Sodium 134 mmol/L (137-145)
[2025-08-15 05:56] LABS: Uric Acid 5.0 mg/dL (3.5-8.5)
--- NOTE | 2025-08-15 06:17 | PC.NURSE ---
BP soft- 90/56, MAP 62, HR 88. Notified Dr. Masters, no new orders.
--- NOTE | 2025-08-15 08:04 | PM.PN.1 ---
Subjective Subjective Interval history: Summary: Admitted with left ankle cellulitis. S: The ankle still red and swollen, minimally painful. He has a history of a reconstruction several years ago. He was having some chills but no fevers. He was doing well with the antibiotics. Orthopedics was contacted and request an outpatient appointment after he was discharged with improvement of infection to evaluate the ankle. O: NAD, alert and oriented. Fluent speech. Lungs are clear, normal rate and effort. Heart is regular, no murmur gallop or rub. Abdomen is soft, non distended. Extremities are free of edema. Left foot and ankle are red and swollen, there is minimal tenderness, no fluctuance or purulence. This appears to be somewhat scarlatiniform in appearance. A/P: 1. Left ankle cellulitis- there is known hardware in the ankle from the surgery in 2004, it does appear to be inflammed. We will start on empiric Vancomycin, check CRP, uric acid level. Recommend outpt ortho consult 2. Acute on chronic CHF- elevated BNP, hypoxic, will start the pt on lasix, consider echo, weaning the oxygen at this time. I dont think it is clear if he has a pneumonia or not. will reassess in am. 3. atrial fibrillation - continue on Pradaxa, home metoprolol , increase dose if pt becomes more tachycardic. PLAN: -Ortho consult deferred until after discharge if he was clinical improvement. -continue Abx. -denies MRSA history, nares MRSA screen. -leg elevation. Exam Vital Signs (past 8 hours): - 08/15/25 05:18 Temperature 96.9 F L Pulse Rate 88 Respiratory Rate 18 Blood Pressure 90/56 L Pulse Oximetry 95 Oxygen Flow Rate 2 Oxygen Delivery Method Nasal Cannula Oxygen Flow Rate 2 Objective Labs 08/15/25 04:43 08/15/25 04:43 Labs: Laboratory Results - last 24 hr 08/14/25 08/14/25 08/14/25 17:02 17:07 18:44 WBC 11.4 H RBC 5.20 Hgb 15.1 Hct 44.7 MCV 85.9 MCH 29.1 MCHC 33.9 RDW 14.9 H Plt Count 138 L Neut % (Auto) 93.1 H Lymph % (Auto) 2.5 L [place] % (Auto) 4.2 Eos % (Auto) 0.0 L Baso % (Auto) 0.2 Neut # (Auto) 86215 H Lymph # (Auto) 300 L [place] # (Auto) 500 Eos # (Auto) 0 Baso # (Auto) 0 PT 19.8 H INR 1.8 H Sodium 133 L Potassium 4.2 Chloride 97 L Carbon Dioxide 25 BUN 20 Creatinine 0.87 Estimated GFR > 60 BUN/Creatinine Ratio 23.0 H Glucose 146 H Lactate 1.9 Uric Acid Calcium 9.6 Total Bilirubin 1.6 H AST 75 H ALT 31 Alkaline Phosphatase 55 Troponin I 0.015 C-Reactive Protein NT-Pro-B Natriuret Pep 2300 H Total Protein 8.2 Albumin 5.0 Globulin 3.2 Albumin/Globulin Ratio 1.6 Procalcitonin 1.61 H Urine RBC 0-1/hpf Urine WBC 0-1/hpf Ur Squamous Epith Cells 0-1 /hpf Urine Bacteria Occasional (0-1) Ur Culture Indicated? Cult not indicated Vol Urine Centrifuged 10ml (spun) A.calcoaceticus-baumannii cmplx PCR Not detected Bacteroides fragilis Not detected Christina albicans (PCR) Not detected Christina auris (PCR) Not detected C. glabrata (PCR) Not detected C. krusei (PCR) Not detected C. parapsilosis (PCR) Not detected C. tropicalis (PCR) Not detected SARS-CoV-2 (PCR) Negative C. neoform/gattii (PCR) Not detected Enterobacterales (PCR) Not detected E. cloacae complex PCR Not detected Enterococc faecalis PCR Not detected Enterococc faecium PCR Not detected E. coli (PCR) Not detected H. influenzae (PCR) Not detected Influenza A (RT-PCR) Flu a negative Influenza B (RT-PCR) Flu b negative Klebsiella aerogenes (PCR) Not detected Klebsiella oxytoca PCR Not detected Klebsiella pneumoniae Not detected List. monocytogenes PCR Not detected N. meningitidis (PCR) Not detected Proteus species (PCR) Not detected RSV (PCR) Negative Salmonella spp. (PCR) Not detected Serratia marcescens PCR Not detected Staphylococcus sp PCR Not detected Staph aureus (PCR) Not detected mecA/C & MREJ Resist Gene Not applicable mecA/C-Methicil Resis Gene Not applicable mcr-1 Colistin Res Gene PCR Not applicable Staph epidermidis (PCR) Not detected Staph lugdunensis PCR Not detected S. maltophilia (PCR) Not detected Streptococcus sp PCR Detected Group A Strep (PCR) Not detected Strep agalactiae (PCR) Not detected Strep pneumoniae (PCR) Not detected P. aeruginosa (PCR) Not detected Rosemary/B-Vanco Res Genes Not applicable blaIMP Car res Gene PCR Not applicable KPC-Carbap Res Gene PCR Not applicable blaNDM Car Res Gene PCR Not applicable OXA-48 Carbapenem Resis Gene (PCR) Not applicable blaVIM Car Res Gene PCR Not applicable CTX-M Gene Resistance (PCR) Not applicable 08/15/25 04:43 WBC 9.5 RBC 4.81 Hgb 14.1 Hct 41.3 MCV 85.8 MCH 29.3 MCHC 34.1 RDW 14.9 H Plt Count 106 L Neut % (Auto) 88.9 H Lymph % (Auto) 5.6 L [place] % (Auto) 5.1 Eos % (Auto) 0.1 L Baso % (Auto) 0.3 Neut # (Auto) 8500 H Lymph # (Auto) 500 L [place] # (Auto) 500 Eos # (Auto) 0 Baso # (Auto) 0 PT INR Sodium 134 L Potassium 3.5 Chloride 99 Carbon Dioxide 25 BUN 23 H Creatinine 0.84 Estimated GFR > 60 BUN/Creatinine Ratio 27.4 H Glucose 125 H Lactate Uric Acid 5.0 Calcium 8.7 Total Bilirubin AST ALT Alkaline Phosphatase Troponin I C-Reactive Protein 24.4 H NT-Pro-B Natriuret Pep Total Protein Albumin Globulin Albumin/Globulin Ratio Procalcitonin Urine RBC Urine WBC Ur Squamous Epith Cells Urine Bacteria Ur Culture Indicated? Vol Urine Centrifuged A.calcoaceticus-baumannii cmplx PCR Bacteroides fragilis Christina albicans (PCR) Christina auris (PCR) C. glabrata (PCR) C. krusei (PCR) C. parapsilosis (PCR) C. tropicalis (PCR) SARS-CoV-2 (PCR) C. neoform/gattii (PCR) Enterobacterales (PCR) E. cloacae complex PCR Enterococc faecalis PCR Enterococc faecium PCR E. coli (PCR) H. influenzae (PCR) Influenza A (RT-PCR) Influenza B (RT-PCR) Klebsiella aerogenes (PCR) Klebsiella oxytoca PCR Klebsiella pneumoniae List. monocytogenes PCR N. meningitidis (PCR) Proteus species (PCR) RSV (PCR) Salmonella spp. (PCR) Serratia marcescens PCR Staphylococcus sp PCR Staph aureus (PCR) mecA/C & MREJ Resist Gene mecA/C-Methicil Resis Gene mcr-1 Colistin Res Gene PCR Staph epidermidis (PCR) Staph lugdunensis PCR S. maltophilia (PCR) Streptococcus sp PCR Group A Strep (PCR) Strep agalactiae (PCR) Strep pneumoniae (PCR) P. aeruginosa (PCR) Rosemary/B-Vanco Res Genes blaIMP Car res Gene PCR KPC-Carbap Res Gene PCR blaNDM Car Res Gene PCR OXA-48 Carbapenem Resis Gene (PCR) blaVIM Car Res Gene PCR CTX-M Gene Resistance (PCR) [facility] Medical History (Updated 08/14/25 @ 18:53 by Garcia Perdomo MD) History of nonmelanoma skin cancer Dyslipidemia Hypertension Impaired fasting glucose Family History Brother Age: 80 Pulmonary emphysema, unspecified emphysema type Father Age: 103 Alzheimer's dementia without behavioral disturbance, Alzheimer's disease of unspecified onset Grandmother Secondary hypertension, unspecified Glaucoma Mother Age: 102 Breast cancer genetic susceptibility Skin cancer Arthritis Grandmother Alzheimer's dementia without behavioral disturbance, Alzheimer's disease of unspecified onset Social History household members: spouse Smoking Status: Never smoker second hand exposure: No alcohol intake: current substance use type: does not use Assessment & Plan Time-Based Coding :: [TOTAL MINUTES] spent with patient and on the chart (including review of chart, obtaining history, exam, reviewing outside data, placing orders, documenting exam and treatment plan, and counseling patient) on [DATE].
[2025-08-15] MEDS: DOXYCYCLINE HYCLATE 100 MG TABLET PO ×2 (09:59→20:04)
[2025-08-15] MEDS: ATORVASTATIN 20 MG TABLET PO (09:59)
--- NOTE | 2025-08-15 11:16 | PT.IIE ---
Current Diagnoses Cellulitis of left lower limb (08/14/25) Medical History (Last Updated 09/09/24 @ 08:47 by AURY Mccauley) Dyslipidemia History of nonmelanoma skin cancer Hypertension Impaired fasting glucose Physical Therapy Inpatient Evaluation/Re-Eval M1 PT/OT-IP Prior Functional Status Start: 08/15/25 10:35 Freq: NEEDED Status: Active Protocol: Document 08/15/25 10:35 [facility] (Rec: 08/15/25 11:16 [facility] [id number]) Medical Review Prior Functional Status Medical History Yes Reviewed Diet/Fluid Regular Consistency Communication WNL Mobility and Gait indep w/o AD, walks 10k steps a day Activities of Daily indep ADLs, cooks, cleans, drives Living and IADL's Social History Household Members spouse Living Arrangements House Number of Floors ( One Floor Floors) Number of Stairs To no KIANA Enter/Railing? Home Environment Standard Height Toilet,Walk in Shower,Tub/Shower Home Equipment Straight Cane,Grab Bars Near Toilet,Grab Bars In Shower M2 PT-IP Current Condition Start: 08/15/25 10:35 Freq: NEEDED Status: Active Protocol: Document 08/15/25 10:35 [facility] (Rec: 08/15/25 11:16 [facility] [id number]) Physical Therapy Current Condition Current Condition Evaluation Date 08/15/25 Treatment Diagnosis L ankle cellulitis, CHF M3 PT-IP Subjective Start: 08/15/25 10:35 Freq: NEEDED Status: Active Protocol: Document 08/15/25 10:35 [facility] (Rec: 08/15/25 11:16 [facility] [id number]) Subjective Physical Therapy Visit Type Type Initial Evaluation Visit Start Time 10:35 Visit Stop Time 10:58 Number of [employer]SOLE MONITOR Visits 0 Physical Therapy Visit Comments Patient Comments agreeable to get up but notes he was up earlier. knows L ankle is bad so can't use it M4 PT-IP Mobility and Gait Start: 08/15/25 10:35 Freq: NEEDED Status: Active Protocol: Document 08/15/25 10:35 [facility] (Rec: 08/15/25 11:16 [facility] [id number]) PT-Bed Mobility Assessment Supine to Sit Supine to Sit Standby Assistance,Head of Bed Elevated,Bedrails Sit to Supine Sit to Supine Standby Assistance Scooting Scooting to Edge of Independent Bed Scooting Up and Down Independent in Bed PT-Transfer Assessment Sit to and From Stand Sit to and from Moderate Assistance,Use of Upper Extremities Stand Equipment Transfer Assistive Front Wheeled Walker Device Orthotic/Prosthetic No Devices or Brace: Comments Mobility Comments supine to sit SBA w/use of rail and HOB elevated, SBA scoot to EOB. sit to stand w/cues for hand placement and 2 attempts, 2nd attempt mod A to FWW maintaining NWB on LLE until ortho consult. Pt able to hop fwd w/ Carl about 3 ft then hop backwards to bed min A and was SBA for bed mobility. LEft with call light in reach and bed alarm on after bed exercises. Gait Assessment Gait Gait Assistance Minimum Assistance Required: Distance (Feet) 3 Able to Maintain Yes Weight Bearing Status During Gait Assistive Devices Assistive Device Front Wheeled Walker Orthotic/Prosthetic No Devices or Brace: PT-Balance Assessment Sitting Balance and Reactions Static Sitting Normal Balance Ability Dynamic Sitting Normal Balance Ability Standing Balance and Reactions Static Standing Fair Balance Ability Dynamic Standing Poor Balance Ability Device Used FWW M5 PT-IP Objective Assessments Start: 08/15/25 10:35 Freq: NEEDED Status: Active Protocol: Document 08/15/25 10:35 [facility] (Rec: 08/15/25 11:16 [facility] [id number]) Orientation Orientation/Cognition Level of Alertness Alert Language Function No Deficits Noted Ability Safety Awareness Understands Safety Issues Memory Description No Deficits Noted Gross Range of Motion Upper Extremity ROM Assessment Within Functional Limits Lower Extremity ROM Assessment Within Functional Limits Impairments except L ankle limited ROM Strength Lower Extremity Strength Hip grossly 4-/5 Knee grossly 4/5 M6 PT-IP Treatment Start: 08/15/25 10:35 Freq: NEEDED Status: Active Protocol: Document 08/15/25 10:35 [facility] (Rec: 08/15/25 11:16 [facility] [id number]) Physical Therapy Treatment Exercises Exercises Ankle Pumps,Gluteal Sets,Straight Leg Raises,Supine Hip Abduction Education Education Provided Safety M7 PT-IP Assessment and Plan Start: 08/15/25 10:35 Freq: NEEDED Status: Active Protocol: Document 08/15/25 10:35 [facility] (Rec: 08/15/25 11:16 [facility] [id number]) PT Summary Assessment and Plan Potential Rehabilitation Good Potential Status of Condition Evolving at Evaluation Summary Impairments Pain,ROM,Strength,Balance,Bed Mobility,Transfers,Gait, Activity Tolerance Assessment Summary Pt presents w/dx of L ankle cellulitis but xray shows possible changes in old ankle surgery hardware and requires ortho consult. Kept pt NWB on LLE today until ortho is consulted and will follow ortho orders after. pt required assist at this time w/mobility maintaining NWB but does follow cues well. will benefit from cont PT in hospital to improve mobility. Goals Bed Mobility Goal Independent Transfer Goal Independent Gait Goal Independent,Front Wheel Walker Gait Distance 150ft Days to Meet Goals 10 Frequency of Treatment Frequency Of Once a Day Treatment Treatment Plan Physical Therapy Bed Mobility Training,Transfer Training,Gait Training, Treatment Plan Therapeutic Exercise,Balance Retraining,Neuromuscular Re-ed,Manual Therapy Weight Bearing Status Weight Bearing Non-Weight Bearing Status Recommendations To Nursing Amount of Assist 1 Person Assist Needed Discharge Recommendations PT Discharge Home with Assistance,Home Health Recommendations Transportation Needs Private Vehicle at Discharge - PT assist 1
--- NOTE | 2025-08-15 11:29 | OT.IPNOTE ---
Awaiting ortho consult and to check on pt tomorrow for OT eval.
[2025-08-15] MEDS: POTASSIUM CHLORIDE 20 MEQ TAB 40 MEQ PO (11:58)
--- NOTE | 2025-08-15 13:14 | CM.DANOTE ---
Initial DCP Assessment Note. Review EMR and PT Interview. Met with patient at bedside to discuss discharge needs.PT is alert x 4 sitting up in bed. No acute distress. Independent. Lives with . Payor:??[facility] PCP: Summary & Plan:?75 y/o male arrived to ED c/o RLE pain and swelling. Patient appeared to be SOB. Admitted INPT. Dx. PNA and RT Ankle Cellulitis. Plan: IV abx, wean oxygen. If ankle improves, Outpatient Ortho follow up. Discharge Planning/Care Management CM Discharge Assessment Start: 08/14/25 21:52 Freq: Status: Active Protocol: Document 08/15/25 13:12 (Rec: 08/15/25 13:14 [id number]) Discharge Planning Assessment Assigned Discharge Josefa Mcgill RN CM Investment Executive Provider Dr. Gonzalez Insurance [facility] Advance Directives? No History Provided By Patient Has Patient been No admitted in last 30 days? Prior Living House Arrangements Household Members spouse Type of Drives own vehicle transporation used prior to admit Independent with ADL Yes 's Is patient alert and Yes oriented? Caregiver for No Another DME Already Rented / Other Owned Comment Walking sticks Comment Might need HH Barriers to No Discharge Discharge Plan Home Review Status In Process Please Provide Date 08/15/25 Initial DC Assessment Was Performed Next Review Type Continued Stay Review
[2025-08-15] MEDS: VANCOMYCIN 1,250 MG/250 ML PIGGYBACK 250 MG IV (13:19)
--- NOTE | 2025-08-15 14:14 | PC.NURSE ---
ASSUMED CARE OF PATIENT AT 1100. REPORT RECEIVED FROM MANI BARKLEY. PT A/OX4. 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 NO C/O PAIN OR SOB AT THIS TIME. L FOOT APPEARS RED/ WARM TO TOUCH. +1 EDEMA TO L FOOT NOTED. L PEDAL PULSE. SEE EMAR FOR MEDS GIVEN. OUTPUT DOCUMENTED. NO CONCERNS OR QUESTIONS AT THIS TIME. CARE ONGOING.
[2025-08-15 15:20] LABS: MRSA (Nasal) PCR NOT DETECTED (Not Detect)
--- NOTE | 2025-08-15 16:03 | P.HP_ITS ---
History of Present Illness History of Present Illness Date Patient Seen: 08/15/25 Time Patient Seen: 15:30 Chief complaint: Low Oxygen Level 84, dizziness, low grade temp Narrative: 75-year-old male with history of left ankle surgery admitted to internal medicine service for hypoxia and was noted to have left medial ankle erythema and swelling. He states this has been going on for the last 3 days. And he was having some difficulty ambulating. At baseline he does not have very much ankle range of motion since his surgery. He states that when he moves his ankle he does not have increased pain at this time. Physical exam reveals a well-developed well-nourished 75-year-old in no acute distress Evaluation of his left lower extremity demonstrates that he has a well-healed surgical incision medially and he has medial ankle erythema and swelling. He has no palpable fluctuance. He has approximately a 10 degree arc of motion at his ankle joint and subtalar joint and does not seem to have any joint irritability. Three views of his left ankle demonstrate 2 medial malleolar screws and a total of 3 Lona implants. 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 [facility] Medical History (Updated 08/14/25 @ 18:53 by Garcia Perdomo MD) Dyslipidemia History of nonmelanoma skin cancer Hypertension Impaired fasting glucose Family History Brother Age: 80 Pulmonary emphysema, unspecified emphysema type Father Age: 103 Alzheimer's dementia without behavioral disturbance, Alzheimer's disease of unspecified onset Grandmother Secondary hypertension, unspecified Glaucoma Mother Age: 102 Breast cancer genetic susceptibility Skin cancer Arthritis Grandmother Alzheimer's dementia without behavioral disturbance, Alzheimer's disease of unspecified onset Social History household members: spouse Smoking Status: Never smoker second hand exposure: No alcohol intake: current substance use type: does not use Meds Home Medications and Allergies Home Medications ?Medication ?Instructions ?Recorded ?Confirmed ?Type fluticasone propionate 50 2 spray intranasal DAILY PRN 04/02/19 09/05/24 History mcg/actuation nasal allergy symptoms spray,suspension (Flonase Allergy Relief) diph,pertuss(acel),tet vac(PF) 2 0.5 ml IM ONCE Encoun ter for 02/04/21 09/05/24 Rx Lf-(2.5-5-3-5mcg)-5 Lf/0.5 mL IM Immunization #0.5 mL syringe (Adacel (Tdap Adolesn/Adult)(PF)) atorvastatin 20 mg tablet 20 mg PO DAILY #90 tabs 03/1308/15/25 Rx dabigatran etexilate 75 mg capsule 75 mg PO BID #180 c aps 07/28/21 08/15/25 Rx (Pradaxa) metoprolol succinate 25 mg 25 mg PO DAILY #90 tabs 03/1308/15/25 Rx tablet,extended release 24 hr Allergies Allergy/AdvReac Type Severity Reaction Status Date / Time No Known Drug Allergies Allergy Verified 08/14/25 17:07 Exam Vital Signs (past 8 hours): - 08/15/25 09:58 Pulse Rate 97 H Blood Pressure 107/55 L Oxygen Delivery Method Nasal Cannula Oxygen Flow Rate 2 Objective Labs 08/15/25 04:43 08/15/25 04:43 Labs: Laboratory Results - last 24 hr 08/14/25 08/14/25 08/14/25 17:02 17:07 18:44 WBC 11.4 H RBC 5.20 Hgb 15.1 Hct 44.7 MCV 85.9 MCH 29.1 MCHC 33.9 RDW 14.9 H Plt Count 138 L Neut % (Auto) 93.1 H Lymph % (Auto) 2.5 L [place] % (Auto) 4.2 Eos % (Auto) 0.0 L Baso % (Auto) 0.2 Neut # (Auto) 41069 H Lymph # (Auto) 300 L [place] # (Auto) 500 Eos # (Auto) 0 Baso # (Auto) 0 PT 19.8 H INR 1.8 H Sodium 133 L Potassium 4.2 Chloride 97 L Carbon Dioxide 25 BUN 20 Creatinine 0.87 Estimated GFR > 60 BUN/Creatinine Ratio 23.0 H Glucose 146 H Lactate 1.9 Uric Acid Calcium 9.6 Total Bilirubin 1.6 H AST 75 H ALT 31 Alkaline Phosphatase 55 Troponin I 0.015 C-Reactive Protein NT-Pro-B Natriuret Pep 2300 H Total Protein 8.2 Albumin 5.0 Globulin 3.2 Albumin/Globulin Ratio 1.6 Procalcitonin 1.61 H Urine RBC 0-1/hpf Urine WBC 0-1/hpf Ur Squamous Epith Cells 0-1 /hpf Urine Bacteria Occasional (0-1) Ur Culture Indicated? Cult not indicated Vol Urine Centrifuged 10ml (spun) Nasal Screen MRSA (PCR) A.calcoaceticus-baumannii cmplx PCR Not detected Bacteroides fragilis Not detected Christina albicans (PCR) Not detected Christina auris (PCR) Not detected C. glabrata (PCR) Not detected C. krusei (PCR) Not detected C. parapsilosis (PCR) Not detected C. tropicalis (PCR) Not detected SARS-CoV-2 (PCR) Negative C. neoform/gattii (PCR) Not detected Enterobacterales (PCR) Not detected E. cloacae complex PCR Not detected Enterococc faecalis PCR Not detected Enterococc faecium PCR Not detected E. coli (PCR) Not detected H. influenzae (PCR) Not detected Influenza A (RT-PCR) Flu a negative Influenza B (RT-PCR) Flu b negative Klebsiella aerogenes (PCR) Not detected Klebsiella oxytoca PCR Not detected Klebsiella pneumoniae Not detected List. monocytogenes PCR Not detected N. meningitidis (PCR) Not detected Proteus species (PCR) Not detected RSV (PCR) Negative Salmonella spp. (PCR) Not detected Serratia marcescens PCR Not detected Staphylococcus sp PCR Not detected Staph aureus (PCR) Not detected mecA/C & MREJ Resist Gene Not applicable mecA/C-Methicil Resis Gene Not applicable mcr-1 Colistin Res Gene PCR Not applicable Staph epidermidis (PCR) Not detected Staph lugdunensis PCR Not detected S. maltophilia (PCR) Not detected Streptococcus sp PCR Detected Group A Strep (PCR) Not detected Strep agalactiae (PCR) Not detected Strep pneumoniae (PCR) Not detected P. aeruginosa (PCR) Not detected Rosemary/B-Vanco Res Genes Not applicable blaIMP Car res Gene PCR Not applicable KPC-Carbap Res Gene PCR Not applicable blaNDM Car Res Gene PCR Not applicable OXA-48 Carbapenem Resis Gene (PCR) Not applicable blaVIM Car Res Gene PCR Not applicable CTX-M Gene Resistance (PCR) Not applicable 08/15/25 08/15/25 04:43 13:53 WBC 9.5 RBC 4.81 Hgb 14.1 Hct 41.3 MCV 85.8 MCH 29.3 MCHC 34.1 RDW 14.9 H Plt Count 106 L Neut % (Auto) 88.9 H Lymph % (Auto) 5.6 L [place] % (Auto) 5.1 Eos % (Auto) 0.1 L Baso % (Auto) 0.3 Neut # (Auto) 8500 H Lymph # (Auto) 500 L [place] # (Auto) 500 Eos # (Auto) 0 Baso # (Auto) 0 PT INR Sodium 134 L Potassium 3.5 Chloride 99 Carbon Dioxide 25 BUN 23 H Creatinine 0.84 Estimated GFR > 60 BUN/Creatinine Ratio 27.4 H Glucose 125 H Lactate Uric Acid 5.0 Calcium 8.7 Total Bilirubin AST ALT Alkaline Phosphatase Troponin I C-Reactive Protein 24.4 H NT-Pro-B Natriuret Pep Total Protein Albumin Globulin Albumin/Globulin Ratio Procalcitonin Urine RBC Urine WBC Ur Squamous Epith Cells Urine Bacteria Ur Culture Indicated? Vol Urine Centrifuged Nasal Screen MRSA (PCR) Not detected A.calcoaceticus-baumannii cmplx PCR Bacteroides fragilis Christina albicans (PCR) Christina auris (PCR) C. glabrata (PCR) C. krusei (PCR) C. parapsilosis (PCR) C. tropicalis (PCR) SARS-CoV-2 (PCR) C. neoform/gattii (PCR) Enterobacterales (PCR) E. cloacae complex PCR Enterococc faecalis PCR Enterococc faecium PCR E. coli (PCR) H. influenzae (PCR) Influenza A (RT-PCR) Influenza B (RT-PCR) Klebsiella aerogenes (PCR) Klebsiella oxytoca PCR Klebsiella pneumoniae List. monocytogenes PCR N. meningitidis (PCR) Proteus species (PCR) RSV (PCR) Salmonella spp. (PCR) Serratia marcescens PCR Staphylococcus sp PCR Staph aureus (PCR) mecA/C & MREJ Resist Gene mecA/C-Methicil Resis Gene mcr-1 Colistin Res Gene PCR Staph epidermidis (PCR) Staph lugdunensis PCR S. maltophilia (PCR) Streptococcus sp PCR Group A Strep (PCR) Strep agalactiae (PCR) Strep pneumoniae (PCR) P. aeruginosa (PCR) Rosemary/B-Vanco Res Genes blaIMP Car res Gene PCR KPC-Carbap Res Gene PCR blaNDM Car Res Gene PCR OXA-48 Carbapenem Resis Gene (PCR) blaVIM Car Res Gene PCR CTX-M Gene Resistance (PCR) Assessment & Plan Assessment and plan (1) Cellulitis of left ankle: Status: Acute Plan: 75-year-old male with cellulitis of his left ankle in the setting of hypoxia. I agree with IV antibiotics at this time and I will continue to monitor sure his left ankle to ensure the cellulitis improves. At this point feel any fluctuance and what little motion he has of his ankle and subtalar joint are not irritable to suggest septic arthritis at this time I recommend rest ice and elevation of the left ankle and I will continue to monitor him. Time-Based Coding :: [TOTAL MINUTES] spent with patient and on the chart (including review of chart, obtaining history, exam, reviewing outside data, placing orders, documenting exam and treatment plan, and counseling patient) on [DATE]. [employer] Document charge(s): No
[2025-08-15] MEDS: DABIGATRAN 75 MG CAPSULE PO (20:04)
[2025-08-16] VITALS (11 sets, daily range): BP systolic 96–136; BP diastolic 54–80; PULSE 97–116; RESP 16–20; TEMP 36.4–36.8; O2SAT 93–97
[2025-08-16] MEDS: FUROSEMIDE 40 MG/4 ML VIAL IV ×3 (01:13→23:19)
[2025-08-16] MEDS: VANCOMYCIN 1,250 MG/250 ML PIGGYBACK 250 MG IV (01:13)
--- NOTE | 2025-08-16 02:40 | PC.NURSE ---
Assumed care of patient at 00:30.
[2025-08-16] MEDS: PANTOPRAZOLE DR 20 MG TABLET PO (04:59)
[2025-08-16 06:24] LABS: Blood Urea Nitrogen 18 mg/dL (9-20); Calcium 8.4 mg/dL (8.4-10.2); Carbon Dioxide 25 mmol/L (22-32); Chloride 98 mmol/L (98-107); Estimated Glomerular Filt Rate > 60 mL/min (>60); Glucose 106 mg/dL (70-99); HEMOLYSIS 24 (0-50); Potassium 3.5 mmol/L (3.4-5.1); Sodium 131 mmol/L (137-145)
[2025-08-16] MEDS: METOPROLOL ER 25 MG TABLET PO (08:09)
[2025-08-16] MEDS: DOXYCYCLINE HYCLATE 100 MG TABLET PO (08:09)
[2025-08-16] MEDS: ATORVASTATIN 20 MG TABLET PO (08:09)
[2025-08-16] MEDS: DABIGATRAN 75 MG CAPSULE PO ×2 (08:10→20:29)
[2025-08-16] MEDS: POTASSIUM CHLORIDE 20 MEQ TAB 40 MEQ PO (09:23)
--- NOTE | 2025-08-16 09:34 | PM.PN.1 ---
Subjective Subjective Interval history: Summary: 75 yo who started noticing swelling, redness, and pain in the left ankle about 2 days ago. He denies any injury to the ankle that he is aware of, he did have surgery with screw fixation to the ankle in 2004 in [place]. He denies a hx of gout, and last year the rt ankle had cellulitis in it. The pt went to an Urgent Car today & was noted to be hypoxic ( he is normally on room air). He was started on 2 lpm NC and sent to the ER for evaluation. He denies any SOB, cough, fevers, chills, URIBE or any URI symtoms. He does not smoke, he has a hx of CHF and A-fib on Pradaxia & metoprolol. 08/15: Antibiotics continued, ortho did see the patient. Overnight events: Blood cultures positive for strep x2. Ankle looks better today. Antibiotics switched to cefazolin. S: Ankle feels a bit better, O2 down to 1 L. No respiratory symptoms. O: NAD, alert and oriented. Fluent speech. Lungs are clear, normal rate and effort. Heart is regular, no murmur gallop or rub. Abdomen is soft, non distended. Extremities are free of edema. Left foot is less red and warm. There is still erythema over the foot and lower leg. But this is improved. No fluctuance. IMAGING: CT of the chest, abdomen, and pelvis: Mild dependent lung opacities and atelectasis. No large airspace consolidation or pleural effusion. Consider future imaging surveillance to assess for resolution. Cardiomegaly and coronary calcifications. No acute finding in the abdomen/pelvis. Ankle x-ray: No relevant comparisons are available. Fixation screws are seen throughout the talus and medial malleolus, some may be broken or had portions removed. Age-indeterminate fracture deformities and periarticular bone fragments are seen in the superior posterior talus and around the lateral and medial malleoli. Diffuse soft tissue swelling. Possibly post-traumatic arthritic changes and joint space loss throughout the tibiotalar and subtalar joints. If there is further concern, consider cross-sectional imaging. Chest x-ray: No dense airspace disease or pleural effusion on this single view study. Mild cardiomegaly. A/P: 1. Left ankle cellulitis- there is known hardware in the ankle from the surgery in 2004, it does appear to be inflammed. We will start on empiric Vancomycin, check CRP, uric acid level. Recommend outpt ortho consult 2. Acute on chronic CHF- elevated BNP, hypoxic, will start the pt on lasix, consider echo, weaning the oxygen at this time. I dont think it is clear if he has a pneumonia or not. will reassess in am. 3. atrial fibrillation - continue on Pradaxa, home metoprolol , increase dose if pt becomes more tachycardic. 4. Strept bacteremia, new. PLAN: -Ortho consult deferred until after discharge if he was clinical improvement. -continue Abx. Anticipate 14 days course. -repeat blood cx. -denies MRSA history, nares MRSA screen. -leg elevation. -Discuss further foot imaging with ortho. Exam Vital Signs (past 8 hours): - 08/16/25 04:00 08/16/25 08:00 08/16/25 08:09 Temperature 97.8 F 97.6 F Pulse Rate 116 H 107 H 107 H Respiratory Rate 17 20 Blood Pressure 126/77 128/80 128/80 Pulse Oximetry 95 95 Oxygen Flow Rate 2 2 08/16/25 09:05 08/16/25 09:11 Temperature Pulse Rate 98 H 98 H Respiratory Rate Blood Pressure 96/54 L 96/54 L Pulse Oximetry Oxygen Flow Rate Fraction of Inspired Oxygen 28 SaO2/FiO2 Ratio 346 Oxygen Delivery Method Nasal Cannula Oxygen Flow Rate 2 Objective Labs 08/15/25 04:43 08/16/25 05:50 Labs: Laboratory Results - last 24 hr 08/15/25 08/16/25 13:53 05:50 Sodium 131 L Potassium 3.5 Chloride 98 Carbon Dioxide 25 BUN 18 Creatinine 0.68 Estimated GFR > 60 BUN/Creatinine Ratio 26.5 H Glucose 106 H Calcium 8.4 Nasal Screen MRSA (PCR) Not detected [facility] Medical History (Updated 08/14/25 @ 18:53 by Garcia Perdomo MD) History of nonmelanoma skin cancer Dyslipidemia Hypertension Impaired fasting glucose Family History Brother Age: 80 Pulmonary emphysema, unspecified emphysema type Father Age: 103 Alzheimer's dementia without behavioral disturbance, Alzheimer's disease of unspecified onset Grandmother Secondary hypertension, unspecified Glaucoma Mother Age: 102 Breast cancer genetic susceptibility Skin cancer Arthritis Grandmother Alzheimer's dementia without behavioral disturbance, Alzheimer's disease of unspecified onset Social History household members: spouse Smoking Status: Never smoker second hand exposure: No alcohol intake: current substance use type: does not use Assessment & Plan Time-Based Coding :: [TOTAL MINUTES] spent with patient and on the chart (including review of chart, obtaining history, exam, reviewing outside data, placing orders, documenting exam and treatment plan, and counseling patient) on [DATE].
--- NOTE | 2025-08-16 11:55 | PT.IPTN ---
Current Diagnoses Cellulitis of left lower limb (08/14/25) Physical Therapy Treatment Note M2 PT-IP Current Condition Start: 08/15/25 10:35 Freq: NEEDED Status: Active Protocol: Document 08/15/25 10:35 [facility] (Rec: 08/15/25 11:16 [facility] [id number]) Physical Therapy Current Condition Current Condition Evaluation Date 08/15/25 Treatment Diagnosis L ankle cellulitis, CHF M3 PT-IP Subjective Start: 08/15/25 10:35 Freq: NEEDED Status: Active Protocol: Document 08/16/25 11:55 AB (Rec: 08/16/25 14:04 AB [id number]) Subjective Physical Therapy Visit Type Type Treatment Note Visit Start Time 11:55 Visit Stop Time 12:35 Number of INFORMAT[employer] DEVELOPER Visits 0 Physical Therapy Visit Comments Patient Comments agreeable to do PT Therapy Pain Assessment Pain When Pain Assessed During Mobility Pain Present Pain Present Pain Reported Location Left Ankle Scale Used pain scale not stated M4 PT-IP Mobility and Gait Start: 08/15/25 10:35 Freq: NEEDED Status: Active Protocol: Document 08/16/25 11:55 AB (Rec: 08/16/25 14:04 AB [id number]) PT-Transfer Assessment Sit to and From Stand Sit to and from Minimal Assistance,Moderate Assistance,1 Person Stand Assistance,Use of Upper Extremities Equipment Transfer Assistive Gait Belt,Front Wheeled Walker Device Orthotic/Prosthetic No Devices or Brace: Transfers Transfer Destination Bed,Chair Transfer Technique ambulated Transfer Ability Level of Assist Minimal Assistance,Moderate Assistance,1 Person Assistance,Use of Upper Extremities Comments Mobility Comments EMR reviewed and no weight bearing status seen on doctor's notes. Called Dr. Beard and inquired regarding pt's weight bearing and informed that pt is TDWB on LLE. Asked the doctor to put in weight bearing orders. informed OT and nurse. pt sitting on the chair and agreed to do PT. informed pt regarding TDWB on LLE per ortho doctor. educated on TDWB but if unable to maintain, instructed pt on how to do NWB. sit to stand from the chair, min to mod A and max cues. pt ambulated ~ 3 ft using fWW mod A and instructed to sit on EOB. presents with unsteady gait especially with turning and backing up to sit on EOB. requires max cues with all tasks. educated pt on how to ambulate using FWW and maintaining NWB on LLE as pt unable to maintain TDWB. pt with previous L ankle surgeries and limited ROM and with difficulty maintain TDWB. sit to stand from chair min to mod A and max cues and pt ambulated in room ~ 15 ft using FWW min to mod A and max cues. pt sat on chair. required mod A for controlled descent to chair as pt tends to plop back. (+) SOB. O2 sat at RA: 93%. educated pt on sit to stand techniques. completed sit<> stand x 3 reps min to mod A and max cues. positioned pt on the chair. call light and table placed within reach. informed pt regarding need a FWW and a w/c. pt stated that he plans to borrow one from the [employer]. informed [employer] business hours and other options for purchase. pt stated that he will have to let spouse know. Gait Assessment Gait Gait Assistance Minimum Assistance,Moderate Assistance Required: Distance (Feet) 15 Able to Maintain Yes Weight Bearing Status During Gait Assistive Devices Assistive Device Gait Belt,Front Wheeled Walker Orthotic/Prosthetic No Devices or Brace: Factors Limiting Gait Function Factors Limiting Decreased Activity Tolerance,Decreased Strength, Gait Function Difficulty Following Directions,Incoordination,Limited Range of Motion,Pain,Poor Balance,Poor Safety Awareness M5 PT-IP Objective Assessments Start: 08/15/25 10:35 Freq: NEEDED Status: Active Protocol: Document 08/15/25 10:35 [facility] (Rec: 08/15/25 11:16 [facility] [id number]) Orientation Orientation/Cognition Level of Alertness Alert Language Function No Deficits Noted Ability Safety Awareness Understands Safety Issues Memory Description No Deficits Noted Gross Range of Motion Upper Extremity ROM Assessment Within Functional Limits Lower Extremity ROM Assessment Within Functional Limits Impairments except L ankle limited ROM Strength Lower Extremity Strength Hip grossly 4-/5 Knee grossly 4/5 M6 PT-IP Treatment Start: 08/15/25 10:35 Freq: NEEDED Status: Active Protocol: Document 08/16/25 11:55 AB (Rec: 08/16/25 14:04 AB [id number]) Physical Therapy Treatment Education Education Provided Precautions,Weight Bearing Status,Safety M7 PT-IP Assessment and Plan Start: 08/15/25 10:35 Freq: NEEDED Status: Active Protocol: Document 08/16/25 11:55 AB (Rec: 08/16/25 14:04 AB [id number]) PT Summary Assessment and Plan Potential Rehabilitation Fair Potential Summary Impairments Pain,ROM,Strength,Balance,Coordination,Sensation,Tone, Cognition,Bed Mobility,Transfers,Gait,Activity Tolerance Progress Towards Slow Progress due to Medical Issues,Slow Progress due Goals to Activity Tolerance,Slow Progress - Other Assessment Summary pt requiring min to mod A with sit to stand and ambulation using FWW. pt is TDWB/NWB on LLE and needs cues for safety and use of FWW. pt plans to go home and spouse to assist him. Will conduct caregiver training when appropriate. pt also will benefit from HHPT. informed pt regarding DME needs: FWW and w/c. Goals Bed Mobility Goal Independent Transfer Goal Independent Gait Goal Independent,Front Wheel Walker Gait Distance 50 Days to Meet Goals 10 Frequency of Treatment Frequency Of Once a Day Treatment Treatment Plan Physical Therapy Bed Mobility Training,Transfer Training,Gait Training, Treatment Plan Therapeutic Exercise,Balance Retraining,Neuromuscular Re-ed,Manual Therapy Weight Bearing Status Weight Bearing Touch Down Weight Bearing Status Allowed Weight LLE: TDWB Bearing Amount ( enter % or #) (%) Recommendations To Nursing Amount of Assist 1 Person Assist Needed Discharge Recommendations PT Discharge Home with 16/05 Assist Available,Home Health Recommendations Transportation Needs Private Vehicle at Discharge - PT assist 1
--- NOTE | 2025-08-16 12:15 | CM.DPC ---
Update: Repeat Blood Cultures and continue with PT/OT. Recheck labs in AM. Walker likely needed upon discharge.
--- NOTE | 2025-08-16 13:26 | OT.IP.EVAL ---
Current Diagnoses Cellulitis of left lower limb (08/14/25) Past Medical History (Last Updated 09/09/24 @ 08:47 by AURY Mccauley) Dyslipidemia History of nonmelanoma skin cancer Hypertension Impaired fasting glucose Occupational Therapy Inpatient Evaluation/Re-Eval M1 PT/OT-IP Prior Functional Status Start: 08/15/25 10:35 Freq: NEEDED Status: Active Protocol: Document 08/16/25 13:09 BLAYNE (Rec: 08/16/25 13:26 [facility] Review Prior Functional Status Medical History Yes Reviewed Diet/Fluid Regular Consistency Communication WNL Mobility and Gait indep w/o AD, walks 10k steps a day Activities of Daily indep ADLs, cooks, cleans, drives Living and IADL's Social History Household Members spouse Living Arrangements Apartment/Condo Number of Floors ( One Floor Floors) Number of Stairs To 0 steps to enter Enter/Railing? Home Environment Standard Height Toilet,Walk in Shower,Tub/Shower Doors Home Equipment Hand Held Shower,Grab Bars Near Toilet,Grab Bars In Shower Employment Status Retired Additional [employer] History Comment M2 OT-IP Current Condition Start: 08/16/25 13:09 Freq: Status: Active Protocol: Document 08/16/25 13:09 BLAYNE (Rec: 08/16/25 13:26 [facility]) Occupational Therapy Current Condition Current Condition Evaluation Date 08/16/25 Treatment Diagnosis L ankle cellulitis, CHF Weight Bearing Status Weight Bearing Touch Down Weight Bearing Status Allowed Weight PT called and spoke Orthopedic Sejal Beard today and Bearing Amount ( was given the verbal of TDWB on L LE enter % or #) (%) M3 OT- IP Subjective and Pain Start: 08/16/25 13:09 Freq: Status: Active Protocol: Document 08/16/25 13:09 BLAYNE (Rec: 08/16/25 13:26 [facility]- Subjective Occupational Therapy Visit Type Type Initial Evaluation Visit Start Time 11:30 Visit Stop Time 12:00 Occupational Therapy Visit Comments Patient Comments Pt was up in chair and agreeable to participating in OT eval. Patient/Caregiver To go home Goals OT Pain Assessment Pain When Pain Assessed At Rest Pain Present Pain Present Denied Pain M4 OT- IP ADL's Start: 08/16/25 13:09 Freq: Status: Active Protocol: Document 08/16/25 13:09 BLAYNE (Rec: 08/16/25 13:26 [facility]) OT SIC-Sajn-Lyvanuq General Evaluation Self-Feeding Ability Independent OT ADL-Grooming General Evaluation Grooming Ability Standby Assistance Areas Needing Retrieving/Set-up of Grooming Items Assistance Comments OT Grooming Comments Pt opted to perform up in chair, needs set up of articles OT ADL-Oral Care General Eval Oral Care Ability Standby Assistance Areas of Assistance Retrieving/Set-Up of Items Comments Oral Care Comments Pt performed up in chair on set up OT ADL-Dressing General Eval Lower Body Dressing Independent,Minimal Assistance Ability Comments OT Dressing Comments Pt was I with R sock (no sock on L LE). Pt doffed under reid and pants standing with no WB on L LE (per pt choice) and one hand on FWW. Pt required vcs to reach back for chair and continue removing LB clothing. Pt needs MIN A to remove from L LE. Pt needs dons under reid and pants with vcs to start with L LE first and to pull up as high as possible before standing. This time in standing, pt attempts TTWB on L LE and uses B UE to pull up clothing over his hips. OT ADL-Toileting Comments OT Toileting not observed Comments OT ADL-Bathing Comments OT Bathing Comments pt declines at time of eval M5 OT- IP IADL's Start: 08/16/25 13:09 Freq: Status: Active Protocol: Document 08/16/25 13:09 BLAYNE (Rec: 08/16/25 13:26 [facility]) OT-Instrumental Activities of Daily Living Deficits IADL Deficits Deficits Identified Home Safety Awareness Awareness of Need Good Awareness for Assistance at Home Ability to Problem Unable to Problem Solve Solve Emergency Situations Medication Management Medication No Deficits Identified Management Money Management Money Management No Deficits Identified Meal Preparation Meal Preparation Caregiver Provides Assist Contour Path Tape Mill Operator Contour Path Tape Mill Operator Caregiver Provides Assist Driving Driving Caregiver Provides Assist M6 OT- IP Functional Cognition Start: 08/16/25 13:09 Freq: Status: Active Protocol: Document 08/16/25 13:09 BLAYNE (Rec: 08/16/25 13:26 [facility]) Cognitive Factors Limiting Selfcare Function Cognitive Ability Level of Alertness Alert Patient Orientation Name,Year,Place,Situation Attention Span Capable of Focused Attention,Capable of Sustained Ability Attention Ability to Follow Able to Follow One Step Commands,Able to Follow Multi- Commands Step Commands Memory Description No Deficits Noted Safety Awareness Underestimates Need for Assistance Problem Solving Needs Assist to Identify Solutions Ability OT- Vision and Hearing OT- Hearing Assessment OT- Hearing Hearing Impaired,Use of Hearing Aids Assessment OT- Vision Assessment Visual Acuity WFL,Glasses All The Time M7 OT- IP Mobility and Balance Start: 08/16/25 13:09 Freq: Status: Active Protocol: Document 08/16/25 13:09 [facility] (Rec: 08/16/25 13:26 [facility]) OT-Transfer Assessment Sit to and From Stand Sit to and from Moderate Assistance,1 Person Assistance,Use of Upper Stand Extremities Devices Transfer Assistive Gait Belt,Front Wheeled Walker Devices Orthotic/Prosthetic No Devices or Brace: Comments Mobility Comments sit to stand w/cues for hand placement mod A to FWW maintaining TTWB on LLE. OT- Balance Assessment Sitting Balance and Reactions Static Sitting Normal Balance Ability Dynamic Sitting Good Balance Ability Standing Balance and Reactions Static Standing Fair Balance Ability Dynamic Standing Poor Balance Ability M8 OT- IP Objective Assessments Start: 08/16/25 13:09 Freq: Status: Active Protocol: Document 08/16/25 13:09 [facility] (Rec: 08/16/25 13:26 [facility]) OT Gross Range of Motion Upper Extremity Range of Motion Assessment Within Functional Limits OT Strength Upper Extremity Strength Assessment Right Impaired Shoulder 4+ Elbow 4- Hand 5 Hand Returns Clerk Strength Hand Dominance Right M9 OT- IP Assessment and Plan Start: 08/16/25 13:09 Freq: Status: Active Protocol: Document 08/16/25 13:09 [facility] (Rec: 08/16/25 13:26 [facility]) OT Summary Assessment and Plan Potential Rehabilitation Good Potential Analytic Complexity Moderate at Evaluation Summary Assessment Summary Pt is 75 yo M who presents w/dx of L ankle cellulitis. Xray shows possible changes in old ankle surgery hardware ortho was consulted and is monitoring. Per PT rounds, PT spoke with Ortho (Reem) and received TTWB status for L LE. Pt needs cues for hand placement, safety awareness, and demonstrates decreased recognition of need for assist. Pt donned R sock I and under reid/pants with MIN A. Pt needs steadying when standing for ADLs with up to MIN A for balance during standing ADLs. Pt presents with UE weakness, decreased balance, decreased functional mobility, decreased ADLs. Skilled OT services are appropriate to address these deficits and promote return toward PLOF. Pt will need assist on dc. Pt would benefit from HH on dc. Goals Grooming Goal Independent Dressing Goal Independent Toileting Goal Independent Bathing Goal Independent Toilet Transfer Goal Independent,Grab Bars Shower Transfer Goal Independent,Walk-in Shower,Shower Chair,Grab Bars Days to Meet Goals 15 Frequency of Treatment Other frequency 5x/wk Treatment Plan OT Treatment Plan ADL Training,Functional Mobility,Therapeutic Exercises, Patient/Family Education,Discharge Planning Discharge Recommendations OT Discharge Home with Assistance,Home Health Recommendations Home Equipment Needs shower chair/bench Transportation Needs Private Vehicle at Discharge
--- NOTE | 2025-08-16 14:39 | PM.HP.IH.1 ---
History of Present Illness History of Present Illness Chief complaint: Low Oxygen Level 84, dizziness, low grade temp Narrative: 75-year-old male with history of left ankle surgery admitted to internal medicine service for hypoxia and was noted to have left medial ankle erythema and swelling. He reports that his ankle feels better today. He has a baseline of decreased range of motion. Physical exam reveals a well-developed well-nourished 75-year-old in no acute distress Evaluation of his left lower extremity demonstrates that he has a well-healed surgical incision medially and he has medial ankle erythema and swelling - less than yesterday. He has no palpable fluctuance. He has approximately a 10 degree arc of motion at his ankle joint and subtalar joint and does not seem to have any joint irritability. Three views of his left ankle demonstrate 2 medial malleolar screws and a total of 3 Lona implants. 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 [facility] Medical History (Updated 08/14/25 @ 18:53 by Garcia Perdomo MD) Dyslipidemia History of nonmelanoma skin cancer Hypertension Impaired fasting glucose Family History Brother Age: 80 Pulmonary emphysema, unspecified emphysema type Father Age: 103 Alzheimer's dementia without behavioral disturbance, Alzheimer's disease of unspecified onset Grandmother Secondary hypertension, unspecified Glaucoma Mother Age: 102 Breast cancer genetic susceptibility Skin cancer Arthritis Grandmother Alzheimer's dementia without behavioral disturbance, Alzheimer's disease of unspecified onset Social History household members: spouse Smoking Status: Never smoker second hand exposure: No alcohol intake: current substance use type: does not use Meds Home Medications and Allergies Home Medications ?Medication ?Instructions ?Recorded ?Confirmed ?Type fluticasone propionate 50 2 spray intranasal DAILY PRN 04/02/19 09/05/24 History mcg/actuation nasal allergy symptoms spray,suspension (Flonase Allergy Relief) diph,pertuss(acel),tet vac(PF) 2 0.5 ml IM ONCE Encounter for 02/04/21 09/05/24 Rx Lf-(2.5-5-3-5mcg)-5 Lf/0.5 mL IM Immunization #0.5 mL syringe (Adacel (Tdap Adolesn/Adult)(PF)) atorvastatin 20 mg tablet 20 mg PO DAILY #90 tabs 07/28/21 08/15/25 Rx dabigatran etexilate 75 mg capsule 75 mg PO BID #180 caps 07/28/21 08/15/25 Rx (Pradaxa) metoprolol succinate 25 mg 25 mg PO DAILY #90 tabs 07/28/21 08/15/25 Rx tablet,extended release 24 hr Allergies Allergy/AdvReac Type Severity Reaction Status Date / Time No Known Drug Allergies Allergy Verified 08/14/25 17:07 Exam Vital Signs (past 8 hours): - 08/16/25 07:00 08/16/25 07:00 08/16/25 08:00 Temperature 97.6 F Pulse Rate 107 H Respiratory Rate 20 Blood Pressure 128/80 Pulse Oximetry 93 95 Oxygen Delivery Method Nasal Cannula Nasal Cannula Oxygen Flow Rate 1 2 08/16/25 08:09 08/16/25 09:05 08/16/25 09:11 Temperature Pulse Rate 107 H 98 H 98 H Respiratory Rate Blood Pressure 128/80 96/54 L 96/54 L Pulse Oximetry Oxygen Delivery Method Oxygen Flow Rate 08/16/25 13:00 Temperature 97.9 F Pulse Rate 109 H Respiratory Rate 18 Blood Pressure 105/65 Pulse Oximetry 95 Oxygen Delivery Method Oxygen Flow Rate 0 Fraction of Inspired Oxygen 28 SaO2/FiO2 Ratio 346 Oxygen Delivery Method Nasal Cannula Oxygen Flow Rate 0 Objective Labs 08/15/25 04:43 08/16/25 05:50 Labs: Laboratory Results - last 24 hr 08/15/25 08/16/25 13:53 05:50 Sodium 131 L Potassium 3.5 Chloride 98 Carbon Dioxide 25 BUN 18 Creatinine 0.68 Estimated GFR > 60 BUN/Creatinine Ratio 26.5 H Glucose 106 H Calcium 8.4 Nasal Screen MRSA (PCR) Not detected Assessment & Plan Assessment and plan (1) Cellulitis of left ankle: Status: Acute Assessment & Plan narrative: He seems to be improving with antibiotics. I am not concerned that he has a septic joint. Continue with antibiotics and weight bearing as tolerated to the left lower extremity. Time-Based Coding :: [TOTAL MINUTES] spent with patient and on the chart (including review of chart, obtaining history, exam, reviewing outside data, placing orders, documenting exam and treatment plan, and counseling patient) on [DATE]. [employer] Document charge(s): No
--- NOTE | 2025-08-16 14:45 | PC.NURSE ---
Pt up and OOB with 1PA/FWW to bathroom. Pt successfully traversed, however as was sitting on bed, was unable to maintain balance and plopped down, leaning back slightly. Pt acknowledged unplanned descent; no harm caused. Discussed moving slowly and with precision in future, reiterated fall prevention education. Pt SpO2 97% on RA after. Pt resting comfortably, bed alarm on, call light within reach, plan of care continues.
[2025-08-16] MEDS: ACETAMINOPHEN 325 MG TABLET 650 MG PO (23:20)
[2025-08-17] VITALS (8 sets, daily range): BP systolic 106–125; BP diastolic 64–74; PULSE 71–116; RESP 15–20; TEMP 35.9–36.7; O2SAT 93–98
[2025-08-17] MEDS: PANTOPRAZOLE DR 20 MG TABLET PO (04:48)
[2025-08-17 05:58] LABS: Blood Urea Nitrogen 19 mg/dL (9-20); Calcium 8.6 mg/dL (8.4-10.2); Carbon Dioxide 28 mmol/L (22-32); Chloride 97 mmol/L (98-107); Estimated Glomerular Filt Rate > 60 mL/min (>60); Glucose 127 mg/dL (70-99); HEMOLYSIS < 15 (0-50); Potassium 3.2 mmol/L (3.4-5.1); Sodium 134 mmol/L (137-145)
--- NOTE | 2025-08-17 08:31 | PM.PN.1 ---
Subjective Subjective Date Patient Seen: 08/17/25 Interval history: 75 yo who started noticing swelling, redness, and pain in the left ankle about 2 days ago. He denies any injury to the ankle that he is aware of, he did have surgery with screw fixation to the ankle in 2004 in [place]. He denies a hx of gout, and last year the rt ankle had cellulitis in it. The pt went to an Urgent Car today & was noted to be hypoxic ( he is normally on room air). He was started on 2 lpm NC and sent to the ER for evaluation. He denies any SOB, cough, fevers, chills, URIBE or any URI symtoms. He does not smoke, he has a hx of CHF and A-fib on Pradaxia & metoprolol. 08/15: Antibiotics continued, ortho did see the patient. 08/16: Overnight events: Blood cultures positive for strep x2. Ankle looks better today. Antibiotics switched to cefazolin. 08/17: Left ankle remains swollen on the medial aspect with scattered areas of redness. The potassium is 3.2 so he will be receiving oral potassium today. This is secondary to his Lasix which is 40 mg b.i.d.. He tells me that he lives in [place] with his who is in good health. His PCP is Soham Schaffer. The blood cultures are growing strep dysgalactiae. S: Ankle feels a bit better, O2 down to 1 L. No respiratory symptoms. O: NAD, alert and oriented. Fluent speech. Lungs are clear, normal rate and effort. Heart is irregularly irregular, no murmur gallop or rub. Abdomen is soft, non distended. Extremities are free of edema. Left foot is less red and warm. There is still scattered erythema over the foot and lower leg. But this is improved. No fluctuance.. No tenderness. IMAGING: CT of the chest, abdomen, and pelvis: Mild dependent lung opacities and atelectasis. No large airspace consolidation or pleural effusion. Consider future imaging surveillance to assess for resolution. Cardiomegaly and coronary calcifications. No acute finding in the abdomen/pelvis. Ankle x-ray: No relevant comparisons are available. Fixation screws are seen throughout the talus and medial malleolus, some may be broken or had portions removed. Age-indeterminate fracture deformities and periarticular bone fragments are seen in the superior posterior talus and around the lateral and medial malleoli. Diffuse soft tissue swelling. Possibly post-traumatic arthritic changes and joint space loss throughout the tibiotalar and subtalar joints. If there is further concern, consider cross-sectional imaging. Chest x-ray: No dense airspace disease or pleural effusion on this single view study. Mild cardiomegaly. A/P: 1. Left ankle cellulitis/Bacteremia- there is known hardware in the ankle from the surgery in 2004, it does not appear to be inflamed. 2. Acute on chronic CHF- elevated BNP, hypoxic, continue lasix, consider echo, weaning the oxygen at this time. No current signs of pneumonia. 3. atrial fibrillation - continue on Pradaxa, home metoprolol, increase dose if pt becomes more tachycardic. 4. Strep Dysgalactic bacteremia, new. 5. Hypokalemia PLAN: -Ortho consult doubts joint infection: Three views of his left ankle demonstrate 2 medial malleolar screws and a total of 3 Lona implants. 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 -continue Cefazolin. Anticipate 14 days course to be completed at home or halfway facility. -HH has to be facilitated thru. his PCP office. Tuesday we should know more. -repeat blood cx. -leg elevation. -supplement with potassium chloride 40 mEq x2 and follow Exam Vital Signs (past 8 hours): - 08/17/25 03:00 08/17/25 08:04 Temperature 98.1 F 97.3 F L Pulse Rate 103 H Respiratory Rate 17 15 Blood Pressure 106/64 119/74 Pulse Oximetry 95 93 Oxygen Flow Rate 0 Fraction of Inspired Oxygen 28 SaO2/FiO2 Ratio 346 Oxygen Delivery Method Room Air Oxygen Flow Rate 0 Objective Labs 08/15/25 04:43 08/17/25 05:17 Labs: Laboratory Results - last 24 hr 08/17/25 05:17 Sodium 134 L Potassium 3.2 L Chloride 97 L Carbon Dioxide 28 BUN 19 Creatinine 0.68 Estimated GFR > 60 BUN/Creatinine Ratio 27.9 H Glucose 127 H Calcium 8.6 PFSH Medical History (Updated 08/14/25 @ 18:53 by Garcia Perdomo MD) History of nonmelanoma skin cancer Dyslipidemia Hypertension Impaired fasting glucose Family History Brother Age: 80 Pulmonary emphysema, unspecified emphysema type Father Age: 103 Alzheimer's dementia without behavioral disturbance, Alzheimer's disease of unspecified onset Grandmother Secondary hypertension, unspecified Glaucoma Mother Age: 102 Breast cancer genetic susceptibility Skin cancer Arthritis Grandmother Alzheimer's dementia without behavioral disturbance, Alzheimer's disease of unspecified onset Social History household members: spouse Smoking Status: Never smoker second hand exposure: No alcohol intake: current substance use type: does not use Assessment & Plan Time-Based Coding :: [TOTAL MINUTES] spent with patient and on the chart (including review of chart, obtaining history, exam, reviewing outside data, placing orders, documenting exam and treatment plan, and counseling patient) on [DATE].
[2025-08-17] MEDS: BENZONATATE 100 MG CAPSULE PO (09:41)
[2025-08-17] MEDS: ACETAMINOPHEN 325 MG TABLET 650 MG PO (09:41)
[2025-08-17] MEDS: ATORVASTATIN 20 MG TABLET PO (09:41)
[2025-08-17] MEDS: DABIGATRAN 75 MG CAPSULE PO ×2 (09:42→20:36)
[2025-08-17] MEDS: POTASSIUM CHLORIDE 20 MEQ TAB 40 MEQ PO ×2 (09:42→14:27)
[2025-08-17] MEDS: METOPROLOL ER 25 MG TABLET PO (09:42)
[2025-08-17] MEDS: FUROSEMIDE 40 MG/4 ML VIAL IV (13:07)
--- NOTE | 2025-08-17 15:15 | PT.IPTN ---
Current Diagnoses Cellulitis of left lower limb (08/14/25) Physical Therapy Treatment Note M2 PT-IP Current Condition Start: 08/15/25 10:35 Freq: NEEDED Status: Active Protocol: Document 08/15/25 10:35 [facility] (Rec: 08/15/25 11:16 [facility] [id number]) Physical Therapy Current Condition Current Condition Evaluation Date 08/15/25 Treatment Diagnosis L ankle cellulitis, CHF M3 PT-IP Subjective Start: 08/15/25 10:35 Freq: NEEDED Status: Active Protocol: Document 08/17/25 15:15 AB (Rec: 08/17/25 17:45 AB Desktop) Subjective Physical Therapy Visit Type Type Treatment Note Visit Start Time 15:15 Visit Stop Time 16:[address] MAGISTRATE Visits 0 Physical Therapy Visit Comments Patient Comments agreeable to do PT M4 PT-IP Mobility and Gait Start: 08/15/25 10:35 Freq: NEEDED Status: Active Protocol: Document 08/17/25 15:15 AB (Rec: 08/17/25 17:45 AB Desktop) PT-Bed Mobility Assessment Supine to Sit Supine to Sit Standby Assistance PT-Transfer Assessment Sit to and From Stand Sit to and from Minimal Assistance,1 Person Assistance,Use of Upper Stand Extremities Equipment Transfer Assistive Gait Belt,Front Wheeled Walker Device Orthotic/Prosthetic No Devices or Brace: Transfers Transfer Destination Chair Transfer Technique ambulated Transfer Ability Level of Assist Minimal Assistance,1 Person Assistance,Use of Upper Extremities Comments Mobility Comments pt in bed and spouse in room. spouse stated that she got a 4WW for pt. informed spouse that pt will need a FWW for safety due to LLE weight bearing restriction. pt and spouse asked about using a knee scooter. Assessed ambulation using knee scooter. educated pt on how to use knee scooter. sit to stand min A but required mod A for standing balance to be able to position LLE on knee scooter. min to mod A for ambulation using knee scooter. pt was very unsteady. switched to FWW and completed ambulated back to EOB with FWW min A. pt is impulsive. educated pt on techniques for sit to stand and ambulation using FWW for safety. caregiver training conducted. educated spouse on how to use safety belt and how to assist pt. spouse was able to put safety belt on pt. spouse assisted pt with sit to stand and ambulation in room using FWW ~ 20 ft min A and cues for safety. increase lateral LOB to the R needing min A for steadiness during ambulation. pt sat on the chair. positioned pt on the chair. call light and table placed within reach. pt and spouse without further questions. Agreed to get a FWW and a w/c. Gait Assessment Gait Gait Assistance Minimum Assistance,1 Person Assist Required: Distance (Feet) 20 Able to Maintain Yes Weight Bearing Status During Gait Assistive Devices Assistive Device Gait Belt,Front Wheeled Walker Gait Deviations General Gait Pattern Decreased Stride Length,Decreased Feet Clearance Factors Limiting Gait Function Factors Limiting Decreased Activity Tolerance,Decreased Strength, Gait Function Difficulty Following Directions,Incoordination,Limited Range of Motion,Pain,Poor Balance,Poor Safety Awareness M5 PT-IP Objective Assessments Start: 08/15/25 10:35 Freq: NEEDED Status: Active Protocol: Document 08/15/25 10:35 [facility] (Rec: 08/15/25 11:16 [facility] [id number]) Orientation Orientation/Cognition Level of Alertness Alert Language Function No Deficits Noted Ability Safety Awareness Understands Safety Issues Memory Description No Deficits Noted Gross Range of Motion Upper Extremity ROM Assessment Within Functional Limits Lower Extremity ROM Assessment Within Functional Limits Impairments except L ankle limited ROM Strength Lower Extremity Strength Hip grossly 4-/5 Knee grossly 4/5 M6 PT-IP Treatment Start: 08/15/25 10:35 Freq: NEEDED Status: Active Protocol: Document 08/17/25 15:15 AB (Rec: 08/17/25 17:45 AB Desktop) Physical Therapy Treatment Education Education Provided Weight Bearing Status,Safety M7 PT-IP Assessment and Plan Start: 08/15/25 10:35 Freq: NEEDED Status: Active Protocol: Document 08/17/25 15:15 AB (Rec: 08/17/25 17:45 AB Desktop) PT Summary Assessment and Plan Potential Rehabilitation Fair Potential Summary Impairments Pain,ROM,Strength,Balance,Coordination,Sensation,Tone, Cognition,Bed Mobility,Transfers,Gait,Activity Tolerance Progress Towards Slow Progress due to Medical Issues,Slow Progress due Goals to Activity Tolerance,Slow Progress - Other Assessment Summary caregiver training conducted and spouse was able to assist pt with mobility. informed spouse to get a FWW and manual w/c for pt and agreed. pt will also benefit from HHPT. Goals Bed Mobility Goal Independent Transfer Goal Independent Gait Goal Independent,Front Wheel Walker Gait Distance 50 Days to Meet Goals 10 Frequency of Treatment Frequency Of Once a Day Treatment Treatment Plan Physical Therapy Bed Mobility Training,Transfer Training,Gait Training, Treatment Plan Therapeutic Exercise,Balance Retraining,Neuromuscular Re-ed,Manual Therapy Weight Bearing Status Weight Bearing Touch Down Weight Bearing Status Allowed Weight LLE: TDWB Bearing Amount ( enter % or #) (%) Recommendations To Nursing Amount of Assist 1 Person Assist Needed Discharge Recommendations PT Discharge Home with 16/05 Assist Available,Home Health Recommendations Transportation Needs Private Vehicle at Discharge - PT assist 1
[2025-08-17] MEDS: SENNOSIDES 8.6 MG TABLET 17.2 MG PO (20:36)
[2025-08-18] VITALS (9 sets, daily range): BP systolic 106–129; BP diastolic 64–75; PULSE 90–110; RESP 17–20; TEMP 36.2–36.5; O2SAT 92–97
[2025-08-18] MEDS: FUROSEMIDE 40 MG/4 ML VIAL IV ×3 (01:35→22:58)
[2025-08-18] MEDS: PANTOPRAZOLE DR 20 MG TABLET PO (04:49)
[2025-08-18 06:35] LABS: Blood Urea Nitrogen 17 mg/dL (9-20); Calcium 8.9 mg/dL (8.4-10.2); Carbon Dioxide 29 mmol/L (22-32); Chloride 96 mmol/L (98-107); Estimated Glomerular Filt Rate > 60 mL/min (>60); Glucose 140 mg/dL (70-99); HEMOLYSIS < 15 (0-50); Potassium 3.5 mmol/L (3.4-5.1); Sodium 132 mmol/L (137-145)
--- NOTE | 2025-08-18 08:04 | P.PN_ITS ---
Subjective Subjective Date Patient Seen: 08/18/25 Interval history: 75 yo who started noticing swelling, redness, and pain in the left ankle about 2 days ago. He denies any injury to the ankle that he is aware of, he did have surgery with screw fixation to the ankle in 2004 in [place]. He denies a hx of gout, and last year the rt ankle had cellulitis in it. The pt went to an Urgent Car today & was noted to be hypoxic ( he is normally on room air). He was started on 2 lpm NC and sent to the ER for evaluation. He denies any SOB, cough, fevers, chills, URIBE or any URI symtoms. He does not smoke, he has a hx of CHF and A-fib on Pradaxia & metoprolol. 08/15: Antibiotics continued, ortho did see the patient. 08/16: Overnight events: Blood cultures positive for strep x2. Ankle looks better today. Antibiotics switched to cefazolin. 08/17: Left ankle remains swollen on the medial aspect with scattered areas of redness. The potassium is 3.2 so he will be receiving oral potassium today. This is secondary to his Lasix which is 40 mg b.i.d.. He tells me that he lives in [place] with his who is in good health. His PCP is Soham Schaffer. The blood cultures are growing strep dysgalactiae. 08/18: Sodium 132 with potassium 3.5 and creatinine 0.62. We reviewed that he has no history of gout. His left ankle injury was at least 20 years ago. He usually is able to walk without pain. I discussed with orthopedics the somewhat unusual spacing/localization of the remaining redness. The improvement trajectory continues to be frustrated only slow but that is still quite typical of a strep based cellulitis. His memory loss/cognition problems are not immediately noticeable but he can not recall meeting the orthopedic surgeon despite several visits so far that have been well documented. O: NAD, alert and oriented. Fluent speech. Lungs are clear, normal rate and effort. Heart is irregularly irregular, no murmur gallop or rub. Abdomen is soft, non distended. Extremities are free of edema except for the area directly surrounding the left ankle.. Left foot is less red and is no longer warm. There is still scattered erythema over the foot and lower leg. One of the areas of localization is the medial ankle scar. No fluctuance. No tenderness. IMAGING: CT of the chest, abdomen, and pelvis: Mild dependent lung opacities and atelectasis. No large airspace consolidation or pleural effusion. Consider future imaging surveillance to assess for resolution. Cardiomegaly and coronary calcifications. No acute finding in the abdomen/pelvis. Ankle x-ray: No relevant comparisons are available. Fixation screws are seen throughout the talus and medial malleolus, some may be broken or had portions removed. Age-indeterminate fracture deformities and periarticular bone fragments are seen in the superior posterior talus and around the lateral and medial malleoli. Diffuse soft tissue swelling. Possibly post-traumatic arthritic changes and joint space loss throughout the tibiotalar and subtalar joints. If there is further concern, consider cross-sectional imaging. Chest x-ray: No dense airspace disease or pleural effusion on this single view study. Mild cardiomegaly. A/P: 1. Left ankle cellulitis/Bacteremia- there is known hardware in the ankle from the surgery in 2004, it does not appear to be inflamed. 2. Acute on chronic CHF- elevated BNP, hypoxic, continue lasix, consider echo, weaning the oxygen at this time. No current signs of pneumonia. 3. atrial fibrillation - continue on Pradaxa, home metoprolol, increase dose if pt becomes more tachycardic. 4. Strep Dysgalactic bacteremia, new. 5. Hypokalemia PLAN: -Ortho consult doubts joint infection: Three views of his left ankle demonstrate 2 medial malleolar screws and a total of 3 Lona implants. 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 -continue Cefazolin. Anticipate 14 days course to be completed at home or intermediate facility. -HH has to be facilitated through his PCP office apparently. Tuesday we should know more. -leg elevation. -supplement with potassium chloride 40 mEq x2, resolved Disposition depending on social work coordinator and insurance approval for location of and duration of outpatient IV antibiotic treatment. Exam Vital Signs (past 8 hours): - 08/18/25 04:00 Temperature 97.5 F L Pulse Rate 105 H Respiratory Rate 17 Blood Pressure 108/73 Pulse Oximetry 92 Oxygen Flow Rate 70 Fraction of Inspired Oxygen 28 SaO2/FiO2 Ratio 346 Oxygen Delivery Method Room Air Oxygen Flow Rate 70 Objective Labs 08/15/25 04:43 08/18/25 05:33 Labs: Laboratory Results - last 24 hr 08/18/25 05:33 Sodium 132 L Potassium 3.5 Chloride 96 L Carbon Dioxide 29 BUN 17 Creatinine 0.62 L Estimated GFR > 60 BUN/Creatinine Ratio 27.4 H Glucose 140 H Calcium 8.9 PFSH Medical History (Updated 08/14/25 @ 18:53 by Garcia Perdomo MD) History of nonmelanoma skin cancer Dyslipidemia Hypertension Impaired fasting glucose Family History Brother Age: 80 Pulmonary emphysema, unspecified emphysema type Father Age: 103 Alzheimer's dementia without behavioral disturbance, Alzheimer's disease of unspecified onset Grandmother Secondary hypertension, unspecified Glaucoma Mother Age: 102 Breast cancer genetic susceptibility Skin cancer Arthritis Grandmother Alzheimer's dementia without behavioral disturbance, Alzheimer's disease of unspecified onset Social History household members: spouse Smoking Status: Never smoker second hand exposure: No alcohol intake: current substance use type: does not use Assessment & Plan Time-Based Coding :: [TOTAL MINUTES] spent with patient and on the chart (including review of chart, obtaining history, exam, reviewing outside data, placing orders, documenting exam and treatment plan, and counseling patient) on [DATE].
[2025-08-18] MEDS: DABIGATRAN 75 MG CAPSULE PO ×2 (08:41→19:51)
[2025-08-18] MEDS: METOPROLOL ER 25 MG TABLET PO (08:41)
[2025-08-18] MEDS: ATORVASTATIN 20 MG TABLET PO (08:41)
[2025-08-18] MEDS: POTASSIUM CHLORIDE 20 MEQ TAB 40 MEQ PO (11:28)
--- NOTE | 2025-08-18 14:36 | PT.IPTN ---
Current Diagnoses Cellulitis of left lower limb (08/14/25) Physical Therapy Treatment Note M2 PT-IP Current Condition Start: 08/15/25 10:35 Freq: NEEDED Status: Active Protocol: Document 08/15/25 10:35 [facility] (Rec: 08/15/25 11:16 [facility] [id number]) Physical Therapy Current Condition Current Condition Evaluation Date 08/15/25 Treatment Diagnosis L ankle cellulitis, CHF M3 PT-IP Subjective Start: 08/15/25 10:35 Freq: NEEDED Status: Active Protocol: Document 08/17/25 15:15 AB (Rec: 08/17/25 17:45 AB Desktop) Subjective Physical Therapy Visit Type Type Treatment Note Visit Start Time 15:15 Visit Stop Time 16:10 Number of PUBLIC OPINION SURVEY TAKER Visits 0 Physical Therapy Visit Comments Patient Comments agreeable to do PT M4 PT-IP Mobility and Gait Start: 08/15/25 10:35 Freq: NEEDED Status: Active Protocol: Document 08/18/25 14:29 KJ (Rec: 08/18/25 14:36 KJ [id number]) PT-Transfer Assessment Sit to and From Stand Sit to and from Contact Guard Assistance Stand Equipment Transfer Assistive Gait Belt,Front Wheeled Walker Device Transfers Transfer Destination Toilet Transfer Technique Amb from bed to toilet Transfer Ability Level of Assist Contact Guard Assistance Gait Assessment Gait Gait Assistance Contact Guard Assist Required: Distance (Feet) 10 Able to Maintain Yes Weight Bearing Status During Gait Assistive Devices Assistive Device Gait Belt,Front Wheeled Walker Comments Gait Comments ttwb M5 PT-IP Objective Assessments Start: 08/15/25 10:35 Freq: NEEDED Status: Active Protocol: Document 08/15/25 10:35 [facility] (Rec: 08/15/25 11:16 [facility] [id number]) Orientation Orientation/Cognition Level of Alertness Alert Language Function No Deficits Noted Ability Safety Awareness Understands Safety Issues Memory Description No Deficits Noted Gross Range of Motion Upper Extremity ROM Assessment Within Functional Limits Lower Extremity ROM Assessment Within Functional Limits Impairments except L ankle limited ROM Strength Lower Extremity Strength Hip grossly 4-/5 Knee grossly 4/5 M6 PT-IP Treatment Start: 08/15/25 10:35 Freq: NEEDED Status: Active Protocol: Document 08/18/25 14:29 KJ (Rec: 08/18/25 14:36 KJ [id number]) Physical Therapy Treatment Other Treatments Other Treatment Instructed in safety during ambulation, transfers and Performed ADLs in M7 PT-IP Assessment and Plan Start: 08/15/25 10:35 Freq: NEEDED Status: Active Protocol: Document 08/17/25 15:15 AB (Rec: 08/17/25 17:45 AB Desktop) PT Summary Assessment and Plan Potential Rehabilitation Fair Potential Summary Impairments Pain,ROM,Strength,Balance,Coordination,Sensation,Tone, Cognition,Bed Mobility,Transfers,Gait,Activity Tolerance Progress Towards Slow Progress due to Medical Issues,Slow Progress due Goals to Activity Tolerance,Slow Progress - Other Assessment Summary caregiver training conducted and spouse was able to assist pt with mobility. informed spouse to get a FWW and manual w/c for pt and agreed. pt will also benefit from HHPT. Goals Bed Mobility Goal Independent Transfer Goal Independent Gait Goal Independent,Front Wheel Walker Gait Distance 50 Days to Meet Goals 10 Frequency of Treatment Frequency Of Once a Day Treatment Treatment Plan Physical Therapy Bed Mobility Training,Transfer Training,Gait Training, Treatment Plan Therapeutic Exercise,Balance Retraining,Neuromuscular Re-ed,Manual Therapy Weight Bearing Status Weight Bearing Touch Down Weight Bearing Status Allowed Weight LLE: TDWB Bearing Amount ( enter % or #) (%) Recommendations To Nursing Amount of Assist 1 Person Assist Needed Discharge Recommendations PT Discharge Home with 16/05 Assist Available,Home Health Recommendations Transportation Needs Private Vehicle at Discharge - PT assist 1
--- NOTE | 2025-08-18 16:23 | CM.DPNOTE ---
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 per previous CM notes, HH infusion needs to be arranged by PCP? ( [facility] and PCP Carlos). no one to coordinate with on the weekends. will need to follow up closely with [facility] on Tuesday. will coordinate with pt/spouse to finalize plan P: 14 total days IV abx needed. anticipate f/u with [facility] and HH Tuesday. CM team will continue to follow closely for DCP coordination KAVITHA Domignuez
[2025-08-18] MEDS: SENNOSIDES 8.6 MG TABLET 17.2 MG PO (19:52)
[2025-08-18] MEDS: ACETAMINOPHEN 325 MG TABLET 650 MG PO (22:58)
[2025-08-19] VITALS (8 sets, daily range): BP systolic 102–133; BP diastolic 62–80; PULSE 78–109; RESP 16–18; TEMP 36–36.4; O2SAT 93–96
--- NOTE | 2025-08-19 | DI.US.S_ITS ---
PROCEDURE: US EXTREMITY NONVASC LOWER LT INDICATIONS: Ankle Abscess TECHNIQUE: Real-time scanning was performed of the left medial ankle , with image documentation. COMPARISON: None. FINDINGS: Over the area of clinical concern and underlying the medial ankle scar, there is a 0.7 x 1.0 x 1.9 cm heterogeneous fluid collection which appears to extend from the subdermal layer to the underlying bony cortex. Overlying skin thickening. Mild hyperemia. No suspicious mass lesion. Adjacent vascular structures appear patent. IMPRESSION: Heterogeneous fluid collection in the medial right ankle underneath scarring and extending to the underlying bony cortex. Associated skin thickening and soft tissue edema. A developing fluid collection/abscess not excluded. If not already accomplished, recommend radiographic evaluation for better evaluation of the bony structures. Dictated by: Justin Wright M.D. on 08/19/2025 at 9:34 Approved by: Justin Wright M.D. on 08/19/2025 at 9:37
[2025-08-19] MEDS: PANTOPRAZOLE DR 20 MG TABLET PO (04:15)
[2025-08-19 05:23] LABS: Blood Urea Nitrogen 20 mg/dL (9-20); Calcium 9.2 mg/dL (8.4-10.2); Carbon Dioxide 29 mmol/L (22-32); Chloride 96 mmol/L (98-107); Estimated Glomerular Filt Rate > 60 mL/min (>60); Glucose 150 mg/dL (70-99); HEMOLYSIS < 15 (0-50); Potassium 3.5 mmol/L (3.4-5.1); Sodium 134 mmol/L (137-145)
--- NOTE | 2025-08-19 07:46 | PM.PN.1 ---
Subjective Subjective Date Patient Seen: 08/19/25 Interval history: His came in this evening and I talked with her about the ankle swelling. She says that the redness and ankle swelling occurred the very same day that he could no longer weight bear on the ankle. The day he came to the hospital. We looked at the x-rays together and we reviewed the orthopedic notes. We will do an ultrasound to rule out any fluid collection that could be aspirated. I explained that CT and MRI value would be degraded by the metallic artifact and that is 1 of the reasons we have not proceeded in that direction. She will come in Tuesday morning hoping to speak with the orthopedic surgeon when they are on the floor. Subjective Date Patient Seen: 08/18/25 Interval history: 75 yo who started noticing swelling, redness, and pain in the left ankle about 2 days ago. He denies any injury to the ankle that he is aware of, he did have surgery with screw fixation to the ankle in 2004 in [place]. He denies a hx of gout, and last year the rt ankle had cellulitis in it. The pt went to an Urgent Car today & was noted to be hypoxic ( he is normally on room air). He was started on 2 lpm NC and sent to the ER for evaluation. He denies any SOB, cough, fevers, chills, URIBE or any URI symtoms. He does not smoke, he has a hx of CHF and A-fib on Pradaxia & metoprolol. 08/15: Antibiotics continued, ortho did see the patient. 08/16: Overnight events: Blood cultures positive for strep x2. Ankle looks better today. Antibiotics switched to cefazolin. 08/17: Left ankle remains swollen on the medial aspect with scattered areas of redness. The potassium is 3.2 so he will be receiving oral potassium today. This is secondary to his Lasix which is 40 mg b.i.d.. He tells me that he lives in [place] with his who is in good health. His PCP is Soham Schaffer. The blood cultures are growing strep dysgalactiae. 08/18: Sodium 132 with potassium 3.5 and creatinine 0.62. We reviewed that he has no history of gout. His left ankle injury was at least 20 years ago. He usually is able to walk without pain. I discussed with orthopedics the somewhat unusual spacing/localization of the remaining redness. The improvement trajectory continues to be frustrated only slow but that is still quite typical of a strep based cellulitis. His memory loss/cognition problems are not immediately noticeable but he can not recall meeting the orthopedic surgeon despite several visits so far that have been well documented. 08/18: His came in this evening and I talked with her about the ankle swelling. She says that the redness and ankle swelling occurred the very same day that he could no longer weight bear on the ankle. The day he came to the hospital. We looked at the x-rays together and we reviewed the orthopedic notes. We will do an ultrasound to rule out any fluid collection that could be aspirated. I explained that CT and MRI value would be degraded by the metallic artifact and that is 1 of the reasons we have not proceeded in that direction. She will come in Tuesday morning hoping to speak with the orthopedic surgeon when they are on the floor. 08/19: Unfortunately the orthopedic team was unavailable when his was here to ask her questions. The BNP is normal. The heart rate is 109 and irregular. The redness is terrazzo supervisor today and the area along the medial scar is more irregular and less inflamed. An ankle ultrasound shows: Heterogeneous fluid collection in the medial right ankle underneath scarring and extending to the underlying bony cortex. Associated skin thickening and soft tissue edema. A developing fluid collection/abscess not excluded O: NAD, alert and oriented. Fluent speech. Lungs are clear, normal rate and effort. Heart is irregularly irregular, no murmur gallop or rub. Abdomen is soft, non distended. Extremities are free of edema except for the area directly surrounding the left ankle.. Left foot is less red and is no longer warm. There is still scattered erythema over the foot and lower leg. The redness is terrazzo supervisor today and the area along the medial scar is more irregular and less inflamed. No fluctuance. No tenderness. IMAGING: CT of the chest, abdomen, and pelvis: Mild dependent lung opacities and atelectasis. No large airspace consolidation or pleural effusion. Consider future imaging surveillance to assess for resolution. Cardiomegaly and coronary calcifications. No acute finding in the abdomen/pelvis. Ankle x-ray: No relevant comparisons are available. Fixation screws are seen throughout the talus and medial malleolus, some may be broken or had portions removed. Age-indeterminate fracture deformities and periarticular bone fragments are seen in the superior posterior talus and around the lateral and medial malleoli. Diffuse soft tissue swelling. Possibly post-traumatic arthritic changes and joint space loss throughout the tibiotalar and subtalar joints. If there is further concern, consider cross-sectional imaging. Chest x-ray: No dense airspace disease or pleural effusion on this single view study. Mild cardiomegaly. A/P: 1. Left ankle cellulitis/Bacteremia- there is known hardware in the ankle from the surgery in 2004. A fluid collection is visible on ultrasound, 1.9 cm. To be discussed with orthopedics. 2. Acute on chronic CHF- elevated BNP, hypoxic, continue lasix, consider echo, weaning the oxygen at this time. No current signs of pneumonia. 3. atrial fibrillation - continue on Pradaxa, home metoprolol, increase dose if pt becomes more tachycardic. 4. Strep Dysgalactic bacteremia, new. 5. Hypokalemia PLAN: -Ortho consult doubts joint infection: Three views of his left ankle demonstrate 2 medial malleolar screws and a total of 3 Lona implants. 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 -ultrasound reveals a 1.9 cm fluid collection underneath the medial ankle scar. Plan to discuss with Orthopedics when they are available. -continue Cefazolin. Anticipate 14 days course to be completed at home or long-term facility. -HH has to be facilitated through his PCP office apparently. Tuesday we should know more. -leg elevation. -supplement with potassium chloride 40 mEq x2, resolved Disposition depending on day worker and insurance approval for location of and duration of outpatient IV antibiotic treatment. Exam Vital Signs (past 8 hours): - 08/19/25 04:00 Temperature 97.6 F Pulse Rate 109 H Respiratory Rate 18 Blood Pressure 113/72 Pulse Oximetry 95 Oxygen Flow Rate 0 Fraction of Inspired Oxygen 28 SaO2/FiO2 Ratio 346 Oxygen Delivery Method Room Air Oxygen Flow Rate 0 Objective Labs 08/15/25 04:43 08/19/25 04:49 Labs: Laboratory Results - last 24 hr 08/19/25 04:49 Sodium 134 L Potassium 3.5 Chloride 96 L Carbon Dioxide 29 BUN 20 Creatinine 0.64 L Estimated GFR > 60 BUN/Creatinine Ratio 31.3 H Glucose 150 H Calcium 9.2 PFSH Medical History (Updated 08/14/25 @ 18:53 by Garcia Perdomo MD) History of nonmelanoma skin cancer Dyslipidemia Hypertension Impaired fasting glucose Family History Brother Age: 80 Pulmonary emphysema, unspecified emphysema type Father Age: 103 Alzheimer's dementia without behavioral disturbance, Alzheimer's disease of unspecified onset Grandmother Secondary hypertension, unspecified Glaucoma Mother Age: 102 Breast cancer genetic susceptibility Skin cancer Arthritis Grandmother Alzheimer's dementia without behavioral disturbance, Alzheimer's disease of unspecified onset Social History household members: spouse Smoking Status: Never smoker second hand exposure: No alcohol intake: current substance use type: does not use Assessment & Plan Time-Based Coding :: [TOTAL MINUTES] spent with patient and on the chart (including review of chart, obtaining history, exam, reviewing outside data, placing orders, documenting exam and treatment plan, and counseling patient) on [DATE].
[2025-08-19] MEDS: DABIGATRAN 75 MG CAPSULE PO ×2 (09:03→20:36)
[2025-08-19] MEDS: METOPROLOL ER 25 MG TABLET PO (09:03)
[2025-08-19] MEDS: ATORVASTATIN 20 MG TABLET PO (09:03)
[2025-08-19] MEDS: POTASSIUM CHLORIDE 20 MEQ TAB 40 MEQ PO (13:04)
[2025-08-19] MEDS: FUROSEMIDE 40 MG/4 ML VIAL IV ×2 (13:04→23:26)
--- NOTE | 2025-08-19 15:28 | OT.IPNOTE ---
Pt reclined in bed on entrance of OT. Pt declines OT tx this afternoon, stating that he just got back in bed. OT offered multiple options for tx, pt states he has already performed them or would rather wait until after supper. Will re-attempt tomorrow if able.
--- NOTE | 2025-08-19 16:27 | CM.DPNOTE ---
DCP Note INTERFACE ANALYST reviewed EMR per RN, pt got midline today. per Chela from [facility], did not get ref. INTERFACE ANALYST faxed ref information. per provider in morning rounds, anticipate here another 2 days. want ortho to f/u about draining fluid in ankle INTERFACE ANALYST needs to set up HH for pt for midline management/PT/OT. unable to meet with pt/spouse today P: dc home 08/21 with [facility] and HH- ref pending. home with partner/PCP to follow abx in OP setting. CM team will continue to follow closely for DCP Coordination Kassidy Monique, INTERFACE ANALYST
--- NOTE | 2025-08-19 16:35 | DIET.CONS2 ---
Dietary Inpatient Consultation Note Admission Date: 08/14/2025 19:27 75 y M admitted for pneumonia. Dietitian screened for LOS. EMR reviewed. 50-100% of PO intakes. DFM reviewed. Pt already receiving supplemental protein shake 1x/day. Weight hx: 96 kg on 09/05/24 (-4% loss in 1 year, non-significant) No further nutritional interventions needed. Continue protein shake 1x/day until majority PO intakes 75% or more. Diet: 08/15/25 Breakfast General (Regular) Diet Diet Modifications: Nutrition Percent Meal Consumed 100% 08/18/25 18:39 Percent Meal Consumed 50% 08/17/25 18:00 Electronically Signed by: Libra Morales 08/19/25 16:35 Clinical Dietitian [address] [id number]
--- NOTE | 2025-08-19 20:05 | P.PN_ITS ---
Subjective Subjective Interval history: PATIENT SUMMARY David Kent was admitted for ankle cellulitis and is receiving antibiotics. The primary reason for the encounter is to evaluate for septic arthritis of his left ankle. PAST SURGICAL HISTORY - ORIF left talus fracture through what appears to have been a medial malleolus approach in 2004 in [place] SUBJECTIVE The patient reports his ankle has been swollen but notes, it was really bad several days ago, and the swelling has improved. He has been on antibiotics since last Tuesday. He reports that his ankle is not painful. He mentions, when I step down on it, it hurts, but he has been told he can touch his toes to the ground. He has been moving around with the aid of a walker with PT. PHYSICAL EXAM Constitutional: Patient is alert and oriented, able to engage in conversation. Musculoskeletal: Limited arc of motion in the left ankle, able to actively flex and extend through a fifteen-degree arc, consistent with post-traumatic arthritis. Well-healed incision on the medial aspect of the ankle. Mild swelling present but improved since prior. No pain with micromotion, no tenderness to palpation, and no pain at rest. Mild induration. No drainage. No palpable abscess. LABS Most recent CRP: 24.4 on August 15, 2025 White blood cell count: 9.5 on August 15, 2025 ASSESSMENT I re-evaluated for possible septic arthritis of the left ankle. His exam was reassuring for the absence of septic arthritis due to absence of pain at rest, ability to tolerate joint range of motion without discomfort, absence of erythema, and ability to ambulate. PLAN - Continue medical therapy - Monitor for any changes or increase in symptoms. - Trend CRP to ensure appropriate response to medical therapy Exam Vital Signs (past 8 hours): - 08/19/25 13:00 08/19/25 16:00 Temperature 97.1 F L 97 F L Pulse Rate 99 H 98 H Respiratory Rate 16 17 Blood Pressure 133/77 112/80 Pulse Oximetry 95 94 Oxygen Flow Rate 0 0 Fraction of Inspired Oxygen 28 SaO2/FiO2 Ratio 346 Oxygen Delivery Method Room Air Oxygen Flow Rate 0 Objective Labs 08/15/25 04:43 08/19/25 04:49 Labs: Laboratory Results - last 24 hr 08/19/25 04:49 Sodium 134 L Potassium 3.5 Chloride 96 L Carbon Dioxide 29 BUN 20 Creatinine 0.64 L Estimated GFR > 60 BUN/Creatinine Ratio 31.3 H Glucose 150 H Calcium 9.2 [facility] Medical History (Updated 08/14/25 @ 18:53 by Garcia Perdomo MD) History of nonmelanoma skin cancer Dyslipidemia Hypertension Impaired fasting glucose Family History Brother Age: 80 Pulmonary emphysema, unspecified emphysema type Father Age: 103 Alzheimer's dementia without behavioral disturbance, Alzheimer's disease of unspecified onset Grandmother Secondary hypertension, unspecified Glaucoma Mother Age: 102 Breast cancer genetic susceptibility Skin cancer Arthritis Grandmother Alzheimer's dementia without behavioral disturbance, Alzheimer's disease of unspecified onset Social History household members: spouse Smoking Status: Never smoker second hand exposure: No alcohol intake: current substance use type: does not use Assessment & Plan Time-Based Coding :: [TOTAL MINUTES] spent with patient and on the chart (including review of chart, obtaining history, exam, reviewing outside data, placing orders, documenting exam and treatment plan, and counseling patient) on [DATE]. [facility]EE Medical Dosimetrist Document charge(s): Yes
[2025-08-19] MEDS: SENNOSIDES 8.6 MG TABLET 17.2 MG PO (20:36)
[2025-08-20 03:47] VITALS: BP 111/72; PULSE 105; RESP 18; TEMP 37.4; O2SAT 92
[2025-08-20] MEDS: PANTOPRAZOLE DR 20 MG TABLET PO (05:51)
[2025-08-20 06:47] LABS: Add Manual Diff / Slide Review NO; Hematocrit 42.1 % (41-53); Hemoglobin 14.5 g/dL (13.5-17.5); Lymphocytes Absolute Auto 1000 /uL (1100-4500); Mean Corpuscular HGB Conc 34.4 % (30-36); Mean Corpuscular Hemoglobin 28.8 PG (26-34); Mean Corpuscular Volume 83.8 fL (80-100); Platelet Count 221 X10^3/uL (150-400)
[2025-08-20 06:59] LABS: Blood Urea Nitrogen 19 mg/dL (9-20); Calcium 8.9 mg/dL (8.4-10.2); Carbon Dioxide 27 mmol/L (22-32); Chloride 94 mmol/L (98-107); Estimated Glomerular Filt Rate > 60 mL/min (>60); Glucose 201 mg/dL (70-99); HEMOLYSIS 23 (0-50); Potassium 3.6 mmol/L (3.4-5.1); Sodium 131 mmol/L (137-145)
[2025-08-20 07:00] VITALS: BP 119/77; PULSE 65; RESP 17; TEMP 36.1; O2SAT 95
--- NOTE | 2025-08-20 08:39 | P.PN_ITS ---
Subjective Subjective Date Patient Seen: 08/20/25 Interval history: 75 yo who started noticing swelling, redness, and pain in the left ankle about 2 days ago. He denies any injury to the ankle that he is aware of, he did have surgery with screw fixation to the ankle in 2004 in [place]. He denies a hx of gout, and last year the rt ankle had cellulitis in it. The pt went to an Urgent Car today & was noted to be hypoxic ( he is normally on room air). He was started on 2 lpm NC and sent to the ER for evaluation. He denies any SOB, cough, fevers, chills, URIBE or any URI symtoms. He does not smoke, he has a hx of CHF and A-fib on Pradaxia & metoprolol. 08/15: Antibiotics continued, ortho did see the patient. 08/16: Overnight events: Blood cultures positive for strep x2. Ankle looks better today. Antibiotics switched to cefazolin. 08/17: Left ankle remains swollen on the medial aspect with scattered areas of redness. The potassium is 3.2 so he will be receiving oral potassium today. This is secondary to his Lasix which is 40 mg b.i.d.. He tells me that he lives in [place] with his who is in good health. His PCP is Soham Schaffer. The blood cultures are growing strep dysgalactiae. 08/18: Sodium 132 with potassium 3.5 and creatinine 0.62. We reviewed that he has no history of gout. His left ankle injury was at least 20 years ago. He usually is able to walk without pain. I discussed with orthopedics the somewhat unusual spacing/localization of the remaining redness. The improvement trajectory continues to be frustrated only slow but that is still quite typical of a strep based cellulitis. His memory loss/cognition problems are not immediately noticeable but he can not recall meeting the orthopedic surgeon despite several visits so far that have been well documented. 08/18: His came in this evening and I talked with her about the ankle swelling. She says that the redness and ankle swelling occurred the very same day that he could no longer weight bear on the ankle. The day he came to the hospital. We looked at the x-rays together and we reviewed the orthopedic notes. We will do an ultrasound to rule out any fluid collection that could be aspirated. I explained that CT and MRI value would be degraded by the metallic artifact and that is 1 of the reasons we have not proceeded in that direction. She will come in Tuesday morning hoping to speak with the orthopedic surgeon when they are on the floor. 08/19: Unfortunately the orthopedic team was unavailable when his was here to ask her questions. The BNP is normal. The heart rate is 109 and irregular. The redness is electronic plotting system operator today and the area along the medial scar is more irregular and less inflamed. An ankle ultrasound shows: Heterogeneous fluid collection in the medial right ankle underneath scarring and extending to the underlying bony cortex. Associated skin thickening and soft tissue edema. A developing fluid collection/abscess not excluded 08/20: Dr. Espinoza examined the patient, reviewed the ultrasound and was reassuring that no joint infection is present. We will plan to keep him on IV cefazolin to treat the strep Dysgylacta bacteremia until August 29. That will be arranged as a home infusion on discharge tomorrow. The swelling and redness are mildly improved today. I have discussed these issues with his . The IV antibiotics are to be managed at home by infusion solutions. O: NAD, alert and oriented. Fluent speech. Lungs are clear, normal rate and effort. Heart is irregularly irregular, no murmur gallop or rub. Abdomen is soft, non distended. Extremities are free of edema except for the area directly surrounding the left ankle.. Left foot is less red and is no longer warm. There is still scattered erythema over the foot and lower leg. The redness is electronic plotting system operator today and the area along the medial scar is more irregular and less inflamed. No fluctuance. No tenderness. IMAGING: CT of the chest, abdomen, and pelvis: Mild dependent lung opacities and atelectasis. No large airspace consolidation or pleural effusion. Consider future imaging surveillance to assess for resolution. Cardiomegaly and coronary calcifications. No acute finding in the abdomen/pelvis. Ankle x-ray: No relevant comparisons are available. Fixation screws are seen throughout the talus and medial malleolus, some may be broken or had portions removed. Age-indeterminate fracture deformities and periarticular bone fragments are seen in the superior posterior talus and around the lateral and medial malleoli. Diffuse soft tissue swelling. Possibly post-traumatic arthritic changes and joint space loss throughout the tibiotalar and subtalar joints. If there is further concern, consider cross-sectional imaging. Chest x-ray: No dense airspace disease or pleural effusion on this single view study. Mild cardiomegaly. A/P: 1. Left ankle cellulitis/Bacteremia- there is known hardware in the ankle from the surgery in 2004. A medial ankle sucutaneous fluid collection is visible on ultrasound, 1.9 cm. This is not felt to represent an intra-articular infection, per Dr. Beard and Dr. Espinoza. 2. Acute on chronic CHF-resolved with IV Lasix. No current signs of pneumonia. 3. atrial fibrillation - continue on Pradaxa, home metoprolol. 4. Strep Dysgalactic bacteremia, new. 5. Hypokalemia PLAN: -Ortho consult doubts joint infection: Three views of his left ankle demonstrate 2 medial malleolar screws and a total of 3 Lona implants. 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 -ultrasound reveals a 1.9 cm fluid collection underneath the medial ankle scar. Discussed with orthopedics. -continue Cefazolin. Anticipate 14 days course to be completed at home by infusion solutions on 08/29/2025. Disposition, pending discharge home with infusion solutions to provide IV antibiotics discussed with his and funeral planner. Exam Vital Signs (past 8 hours): - 08/20/25 03:47 Temperature 99.4 F Pulse Rate 105 H Respiratory Rate 18 Blood Pressure 111/72 Pulse Oximetry 92 Oxygen Flow Rate 0 Fraction of Inspired Oxygen 28 SaO2/FiO2 Ratio 346 Oxygen Delivery Method Room Air Oxygen Flow Rate 0 Objective Labs 08/20/25 06:33 08/20/25 06:33 Labs: Laboratory Results - last 24 hr 08/20/25 06:33 WBC 7.9 RBC 5.02 Hgb 14.5 Hct 42.1 MCV 83.8 MCH 28.8 MCHC 34.4 RDW 14.6 Plt Count 221 Neut % (Auto) 73.6 Lymph % (Auto) 12.6 L Ritchie % (Auto) 11.2 Eos % (Auto) 1.6 L Baso % (Auto) 1.0 Neut # (Auto) 5800 Lymph # (Auto) 1000 L Ritchie # (Auto) 900 Eos # (Auto) 100 Baso # (Auto) 100 Sodium 131 L Potassium 3.6 Chloride 94 L Carbon Dioxide 27 BUN 19 Creatinine 0.61 L Estimated GFR > 60 BUN/Creatinine Ratio 31.1 H Glucose 201 H Calcium 8.9 C-Reactive Protein 11.8 H [facility] Medical History (Updated 08/14/25 @ 18:53 by Garcia Perdomo MD) History of nonmelanoma skin cancer Dyslipidemia Hypertension Impaired fasting glucose Family History Brother Age: 80 Pulmonary emphysema, unspecified emphysema type Father Age: 103 Alzheimer's dementia without behavioral disturbance, Alzheimer's disease of unspecified onset Grandmother Secondary hypertension, unspecified Glaucoma Mother Age: 102 Breast cancer genetic susceptibility Skin cancer Arthritis Grandmother Alzheimer's dementia without behavioral disturbance, Alzheimer's disease of unspecified onset Social History household members: spouse Smoking Status: Never smoker second hand exposure: No alcohol intake: current substance use type: does not use Assessment & Plan Time-Based Coding :: [TOTAL MINUTES] spent with patient and on the chart (including review of chart, obtaining history, exam, reviewing outside data, placing orders, documenting exam and treatment plan, and counseling patient) on [DATE].
--- NOTE | 2025-08-20 09:30 | OT.IP.TRT ---
Current Diagnoses Cellulitis of left lower limb (08/14/25) Occupational Therapy Treatment Note M2 OT-IP Current Condition Start: 08/16/25 13:09 Freq: Status: Active Protocol: Document 08/16/25 13:09 BLAYNE (Rec: 08/16/25 13:26 [facility] Desktop) Occupational Therapy Current Condition Current Condition Evaluation Date 08/16/25 Treatment Diagnosis L ankle cellulitis, CHF Weight Bearing Status Weight Bearing Touch Down Weight Bearing Status Allowed Weight PT called and spoke Orthopedic Sejal Beard today and Bearing Amount ( was given the verbal of TDWB on L LE enter % or #) (%) M3 OT- IP Subjective and Pain Start: 08/16/25 13:09 Freq: Status: Active Protocol: Document 08/20/25 09:30 [facility] (Rec: 08/20/25 11:53 [facility] Desktop) OT- Subjective Occupational Therapy Visit Type Type Treatment Note Visit Start Time 09:30 Visit Stop Time 09:43 Occupational Therapy Visit Comments Patient Comments Pt wanting to brush, floss, and do his waterpik for his mouth/teeth. Patient/Caregiver TO go home. Goals OT Pain Assessment Pain When Pain Assessed At Rest Pain Present Pain Present Denied Pain M4 OT- IP ADL's Start: 08/16/25 13:09 Freq: Status: Active Protocol: Document 08/20/25 09:30 [facility] (Rec: 08/20/25 11:53 [facility] Desktop) OT [id number] General Evaluation Self-Feeding Ability Independent OT ADL-Grooming General Evaluation Grooming Ability Standby Assistance Areas Needing Retrieving/Set-up of Grooming Items Assistance Comments OT Grooming Comments Pt able to do while seated on the edge of the bed. OT ADL-Oral Care General Eval Oral Care Ability Independent M5 OT- IP IADL's Start: 08/16/25 13:09 Freq: Status: Active Protocol: Document 08/16/25 13:09 BLAYNE (Rec: 08/16/25 13:26 [facility] Desktop) OT-Instrumental Activities of Daily Living Deficits IADL Deficits Deficits Identified Home Safety Awareness Awareness of Need Good Awareness for Assistance at Home Ability to Problem Unable to Problem Solve Solve Emergency Situations Medication Management Medication No Deficits Identified Management Money Management Money Management No Deficits Identified Meal Preparation Meal Preparation Caregiver Provides Assist Director Operations Broadcast Director Operations Broadcast Caregiver Provides Assist Driving Driving Caregiver Provides Assist M6 OT- IP Functional Cognition Start: 08/16/25 13:09 Freq: Status: Active Protocol: Document 08/16/25 13:09 [facility]TER[facility] (Rec: 08/16/25 13:26 [facility] Desktop) Cognitive Factors Limiting Selfcare Function Cognitive Ability Level of Alertness Alert Patient Orientation Name,Year,Place,Situation Attention Span Capable of Focused Attention,Capable of Sustained Ability Attention Ability to Follow Able to Follow One Step Commands,Able to Follow Multi- Commands Step Commands Memory Description No Deficits Noted Safety Awareness Underestimates Need for Assistance Problem Solving Needs Assist to Identify Solutions Ability OT- Vision and Hearing OT- Hearing Assessment OT- Hearing Hearing Impaired,Use of Hearing Aids Assessment OT- Vision Assessment Visual Acuity WFL,Glasses All The Time M7 OT- IP Mobility and Balance Start: 08/16/25 13:09 Freq: Status: Active Protocol: Document 08/20/25 09:30 [facility] (Rec: 08/20/25 11:53 [facility] Desktop) OT- Bed Mobility Assessment Supine to Sit Supine to Sit Assist Standby Assistance Sit to Supine Sit to Supine Assist Standby Assistance OT-Transfer Assessment Comments Mobility Comments Pt able to do bed mobility on his own. OT- Balance Assessment Sitting Balance and Reactions Static Sitting Normal Balance Ability Dynamic Sitting Good Balance Ability M8 OT- IP Objective Assessments Start: 08/16/25 13:09 Freq: Status: Active Protocol: Document 08/16/25 13:09 RAFTERRENCE (Rec: 08/16/25 13:26 [facility] Desktop) OT Gross Range of Motion Upper Extremity Range of Motion Assessment Within Functional Limits OT Strength Upper Extremity Strength Assessment Right Impaired Shoulder 4+ Elbow 4- Hand 5 Hand Reinstatement Clerk Strength Hand Dominance Right M9 OT- IP Assessment and Plan Start: 08/16/25 13:09 Freq: Status: Active Protocol: Document 08/20/25 09:30 [facility] (Rec: 08/20/25 11:53 [facility] Desktop) OT Summary Assessment and Plan Potential Rehabilitation Good Potential Analytic Complexity Moderate at Evaluation Summary OT Impairments Pain,Strength,Balance,Functional Mobility,Dressing, Toileting,Bathing,Toilet Transfers,Shower Transfers, Activity Tolerance Progress Towards Progressing Toward Goals,Slow Progress due to Pain Goals Assessment Summary Able to go over OT equipment needs with pt and feel confident that he will be able to do well at home. Pt is looking into borrowing a wc and FWW from a friend. Pt to go home with 24/7 assist and home health. Goals Dressing Goal Independent Toileting Goal Independent Bathing Goal Independent Toilet Transfer Goal Independent Shower Transfer Goal Independent,Walk-in Shower,Shower Chair,Grab Bars Days to Meet Goals 15 Frequency of Treatment Other frequency 5x/week Treatment Plan OT Treatment Plan ADL Training,Functional Mobility,Therapeutic Exercises, Patient/Family Education,Discharge Planning Discharge Recommendations OT Discharge Home with 24/7 Assist Available,Home Health Recommendations Home Equipment Needs Pt states has a shower chair already or can use the built in seat. Transportation Needs Private Vehicle at Discharge
[2025-08-20 10:10] VITALS: BP 104/59; PULSE 95
[2025-08-20] MEDS: DABIGATRAN 75 MG CAPSULE PO ×2 (10:10→20:30)
[2025-08-20] MEDS: METOPROLOL ER 25 MG TABLET PO (10:10)
[2025-08-20] MEDS: ATORVASTATIN 20 MG TABLET PO (10:10)
[2025-08-20 11:00] VITALS: BP 102/75; PULSE 90; RESP 16; TEMP 36; O2SAT 95
[2025-08-20] MEDS: FUROSEMIDE 40 MG/4 ML VIAL IV (13:00)
[2025-08-20] MEDS: SODIUM CHLORIDE 0.9% FLUSH 10 ML IV ×2 (13:01→20:30)
--- NOTE | 2025-08-20 14:10 | PT.IPTN ---
Current Diagnoses Cellulitis of left lower limb (08/14/25) Physical Therapy Treatment Note M2 PT-IP Current Condition Start: 08/15/25 10:35 Freq: NEEDED Status: Active Protocol: Document 08/15/25 10:35 [facility] (Rec: 08/15/25 11:16 [facility] [id number]) Physical Therapy Current Condition Current Condition Evaluation Date 08/15/25 Treatment Diagnosis L ankle cellulitis, CHF M3 PT-IP Subjective Start: 08/15/25 10:35 Freq: NEEDED Status: Active Protocol: Document 08/20/25 14:25 AB (Rec: 08/20/25 16:06 AB [id number]) Subjective Physical Therapy Visit Type Type Treatment Note Visit Start Time 14:25 Visit Stop Time 15:05 Number of RESIDENCE LIFE COORDINATOR Visits 0 Physical Therapy Visit Comments Patient Comments agreed to get up; stated that he is going to get a shower Therapy Pain Assessment Pain When Pain Assessed At Rest Pain Present Pain Present Pain Reported Location Left Ankle Intensity 2 Scale Used Numeric (0 - 10) M4 PT-IP Mobility and Gait Start: 08/15/25 10:35 Freq: NEEDED Status: Active Protocol: Document 08/20/25 14:25 AB (Rec: 08/20/25 16:06 AB [id number]) PT-Bed Mobility Assessment Supine to Sit Supine to Sit Minimal Assistance,1 Person Assistance,Head of Bed Elevated,Bedrails PT-Transfer Assessment Sit to and From Stand Sit to and from Minimal Assistance,1 Person Assistance,Use of Upper Stand Extremities Equipment Transfer Assistive Gait Belt,Front Wheeled Walker Device Orthotic/Prosthetic No Devices or Brace: Transfers Transfer Destination Toilet,Bedside Commode Transfer Technique ambulated Transfer Ability Level of Assist Contact Guard Assistance,Minimal Assistance,1 Person Assistance,Use of Upper Extremities Comments Mobility Comments pt in bed and stated that he is going to get a shower. agreed to get up and walk with PT. NAC cover IV site to get pt ready for a shower. pt completed supine to sit min A and cues with HOB elevated. sit to stand from EOB min A and cues and ambulated towards the shower chair using FWW CGA to min A and cues for safety. pt needed assist to maneuver FWW for turning. pt able to maintain standing using FWW for support min A while assisted with brief/pants management. Left pt with NAC to assist with shower needs. Gait Assessment Gait Gait Assistance Contact Guard Assist,Minimum Assistance Required: Distance (Feet) 20 Able to Maintain Yes Weight Bearing Status During Gait Assistive Devices Assistive Device Gait Belt,Front Wheeled Walker Orthotic/Prosthetic No Devices or Brace: Factors Limiting Gait Function Factors Limiting Decreased Activity Tolerance,Decreased Strength, Gait Function Difficulty Following Directions,Incoordination,Limited Range of Motion,Pain,Poor Balance,Poor Safety Awareness M5 PT-IP Objective Assessments Start: 08/15/25 10:35 Freq: NEEDED Status: Active Protocol: Document 08/15/25 10:35 [facility] (Rec: 08/15/25 11:16 [facility] [id number]) Orientation Orientation/Cognition Level of Alertness Alert Language Function No Deficits Noted Ability Safety Awareness Understands Safety Issues Memory Description No Deficits Noted Gross Range of Motion Upper Extremity ROM Assessment Within Functional Limits Lower Extremity ROM Assessment Within Functional Limits Impairments except L ankle limited ROM Strength Lower Extremity Strength Hip grossly 4-/5 Knee grossly 4/5 M6 PT-IP Treatment Start: 08/15/25 10:35 Freq: NEEDED Status: Active Protocol: Document 08/20/25 14:25 AB (Rec: 08/20/25 16:06 [id number]) Physical Therapy Treatment Education Education Provided Weight Bearing Status,Safety M7 PT-IP Assessment and Plan Start: 08/15/25 10:35 Freq: NEEDED Status: Active Protocol: Document 08/20/25 14:25 AB (Rec: 08/20/25 16:06 [id number]) PT Summary Assessment and Plan Potential Rehabilitation Fair Potential Summary Impairments Pain,ROM,Strength,Balance,Coordination,Sensation,Tone, Cognition,Bed Mobility,Transfers,Gait,Activity Tolerance Progress Towards Slow Progress due to Pain,Slow Progress due to Medical Goals Issues,Slow Progress due to Activity Tolerance Assessment Summary pt progressing slowly with mobility. caregiver training was conducted last tuesday and spouse was able to assist pt. pt plans to go home and will have HHPT. pt confirmed that they were able to get a w/c and FWW for him to use at home. Goals Bed Mobility Goal Independent Transfer Goal Independent Gait Goal Independent,Front Wheel Walker Gait Distance 50 Days to Meet Goals 10 Frequency of Treatment Frequency Of Once a Day Treatment Treatment Plan Physical Therapy Bed Mobility Training,Transfer Training,Gait Training, Treatment Plan Therapeutic Exercise,Balance Retraining,Neuromuscular Re-ed,Manual Therapy Weight Bearing Status Weight Bearing Touch Down Weight Bearing Status Allowed Weight LLE: TDWB Bearing Amount ( enter % or #) (%) Recommendations To Nursing Amount of Assist 1 Person Assist Needed Discharge Recommendations PT Discharge Home with 16/05 Assist Available,Home Health Recommendations Transportation Needs Private Vehicle at Discharge - PT assist 1
--- NOTE | 2025-08-20 14:23 | CM.DPNOTE ---
Addendum entered by KAVITHA Dominguez 08/20/25 16:36: NURSE MONITORING met with pt/spouse all while Jeramie with [facility] was in room to do initial ABX teaching. NURSE MONITORING reviewed plan. pt/spouse remain in agreement. NEED TO CONFIRM TOMORROW: 1) finalize nursing availability with Jeramie 2) Confirm Soham Gonzalez PCP agrees to follow IV Abx at dc 3) that pt is medically stable to dc. call in am to confirm plan SL Original Note: DCP Note NURSE MONITORING reviewed EMR per provider likely cleared for dc home tomorrow with HH and INf [facility]. Per Jeramie pt has total coverage for infusions at home. NURSE MONITORING faxed script/PN/midline report. spoke with pt but will plan to speak with spouse on the phone later as well. NURSE MONITORING met with pt in room. confirm agreeable to plan. preference for [facility] for star ratings. report spouse able to assist him at home with infusions. no further CM needs or questions at this time. NURSE MONITORING sent ref to [facility]. can accept. sent f2f/HH order, placed f2f in scanning chart. only should need dc summary. P: DC tomorrow home with [facility] for RN/OT/PT and infusion solutions. spouse to assist. CM team will continue to follow closely for DCP Coordination KAVITHA Dominguez
[2025-08-20 15:00] VITALS: BP 119/80; PULSE 89; RESP 16; TEMP 35.9; O2SAT 94
[2025-08-20 20:00] VITALS: BP 115/65; PULSE 98; RESP 18; TEMP 36.2; O2SAT 98
[2025-08-21] MEDS: FUROSEMIDE 40 MG/4 ML VIAL IV (00:26)
[2025-08-21 04:00] VITALS: BP 123/71; PULSE 103; RESP 18; TEMP 36.3; O2SAT 92
[2025-08-21] MEDS: PANTOPRAZOLE DR 20 MG TABLET PO (06:45)
[2025-08-21 07:00] VITALS: O2SAT 95
[2025-08-21 09:37] VITALS: BP 123/71; PULSE 103
[2025-08-21] MEDS: ATORVASTATIN 20 MG TABLET PO (09:37)
[2025-08-21] MEDS: METOPROLOL ER 25 MG TABLET PO (09:37)
[2025-08-21] MEDS: DABIGATRAN 75 MG CAPSULE PO (09:37)
--- NOTE | 2025-08-21 10:36 | P.DS_ITS ---
History of Present Illness History of Present Illness Date Patient Seen: 08/21/25 Chief complaint: Low Oxygen Level 84, dizziness, low grade temp Narrative: Chief complaint: Sepsis with hypoxia dizziness secondary to Streptococcus dysgalac History of present illness: 08/14: 75 yo who started noticing swelling, redness, and pain in the left ankle about 2 days ago. He denies any injury to the ankle that he is aware of, he did have surgery with screw fixation to the ankle in 2004 in [place]. He denies a hx of gout, and last year the rt ankle had cellulitis in it. The pt went to an Urgent Car today & was noted to be hypoxic ( he is normally on room air). He was started on 2 lpm NC and sent to the ER for evaluation. He denies any SOB, cough, fevers, chills, URIBE or any URI symtoms. He does not smoke, he has a hx of CHF and A-fib on Pradaxia & metoprolol. Hospital course: 08/15: Antibiotics continued, ortho did see the patient. 08/16: Overnight events: Blood cultures positive for strep x2. Ankle looks better today. Antibiotics switched to cefazolin. 08/17: Left ankle remains swollen on the medial aspect with scattered areas of redness. The potassium is 3.2 so he will be receiving oral potassium today. This is secondary to his Lasix which is 40 mg b.i.d.. He tells me that he lives in [place] with his who is in good health. His PCP is Soham Schaffer. The blood cultures are growing strep dysgalactiae. 08/18: Sodium 132 with potassium 3.5 and creatinine 0.62. We reviewed that he has no history of gout. His left ankle injury was at least 20 years ago. He usually is able to walk without pain. I discussed with orthopedics the somewhat unusual spacing/localization of the remaining redness. The improvement trajectory continues to be frustrated only slow but that is still quite typical of a strep based cellulitis. His memory loss/cognition problems are not immediately noticeable but he can not recall meeting the orthopedic surgeon despite several visits so far that have been well documented. Second set of blood cultures drawn 08/16 with no growth 08/18: His came in this evening and I talked with her about the ankle swelling. She says that the redness and ankle swelling occurred the very same day that he could no longer weight bear on the ankle. The day he came to the hospital. We looked at the x-rays together and we reviewed the orthopedic notes. We will do an ultrasound to rule out any fluid collection that could be aspirated. I explained that CT and MRI value would be degraded by the metallic artifact and that is 1 of the reasons we have not proceeded in that direction. She will come in Tuesday morning hoping to speak with the orthopedic surgeon when they are on the floor. 08/19: Unfortunately the orthopedic team was unavailable when his was here to ask her questions. The BNP is normal. The heart rate is 109 and irregular. The redness is instrument engineer today and the area along the medial scar is more irregular and less inflamed. An ankle ultrasound shows: Heterogeneous fluid collection in the medial right ankle underneath scarring and extending to the underlying bony cortex. Associated skin thickening and soft tissue edema. A developing fluid collection/abscess not excluded 08/20: Dr. Espinoza examined the patient, reviewed the ultrasound and was reassuring that no joint infection is present. We will plan to keep him on IV cefazolin to treat the strep Dysgylacta bacteremia until August 29. That will be arranged as a home infusion on discharge tomorrow. The swelling and redness are mildly improved today. I have discussed these issues with his . The IV antibiotics are to be managed at home by [facility]. 08/21: O: NAD, alert and oriented. Fluent speech. Lungs are clear, normal rate and effort. Heart is irregularly irregular, no murmur gallop or rub. Abdomen is soft, non distended. Extremities are free of edema except for the area directly surrounding the left ankle.. Left foot is less red and is no longer warm. There is still scattered erythema over the foot and lower leg. The redness is instrument engineer today and the area along the medial scar is more irregular and less inflamed. No fluctuance. No tenderness. IMAGING: CT of the chest, abdomen, and pelvis: Mild dependent lung opacities and atelectasis. No large airspace consolidation or pleural effusion. Consider future imaging surveillance to assess for resolution. Cardiomegaly and coronary calcifications. No acute finding in the abdomen/pelvis. Ankle x-ray: No relevant comparisons are available. Fixation screws are seen throughout the talus and medial malleolus, some may be broken or had portions removed. Age-indeterminate fracture deformities and periarticular bone fragments are seen in the superior posterior talus and around the lateral and medial malleoli. Diffuse soft tissue swelling. Possibly post-traumatic arthritic changes and joint space loss throughout the tibiotalar and subtalar joints. If there is further concern, consider cross-sectional imaging. Chest x-ray: No dense airspace disease or pleural effusion on this single view study. Mild cardiomegaly. A/P: 1. Left ankle cellulitis/Bacteremia- there is known hardware in the ankle from the surgery in 2004. * medial ankle sucutaneous fluid collection is visible on ultrasound, 1.9 cm. * This is not felt to represent an intra-articular infection, per Dr. Beard and Dr. Espinoza. 2. Acute on chronic CHF-resolved with IV Lasix. * No current signs of pneumonia. 3. atrial fibrillation - * continue on Pradaxa, home metoprolol. 4. Strep Dysgalactic bacteremia, * Bacteremia cleared 2nd blood culture negative 5. Hypokalemia * Repleted Disposition: * Discussed with orthopedics. Follow up in the office with Dr. Espinoza * continue Cefazolin. Anticipate 14 days course to be completed at home by [facility] on 08/29/2025. 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 Time based billing: * 35 minutes were involved in the management of this patient care including [id number] patient evaluation physical examination discussion of the plan with patient's coordination with Orthopedic surgery prescriptions and care management team Discharge Providers Provider Date of admission: 08/14/25 19:27 Discharge Date: 08/21/25 Primary care physician: AURY Mccauley Consults: 08/14/25 19:39 Consult to Occupational Therapy Evaluate & Treat Comment: Physician Instructions: Evaluate and treat Consult to Physical Therapy Evaluate & Treat Comment: Physician Instructions: Evaluate and Treat 08/15/25 07:42 Consult to Orthopedic Surgery Routine Comment: Consulting Provider: Sejal Beard Reason for consultation: cellulitis Has provider been notified: Yes 08/19/25 19:50 Consult to [facility] Routine Comment: Consulting Provider: [facility] Reason For Exam: Ankle Reason for consultation: Ankle Has provider been notified: Yes 08/20/25 12:39 Consult to Home Health Routine Comment: Reason For Exam: RN/PT/OT Discharge provider: Keny Ayoub MD Exam Vital Signs (past 8 hours): - 08/21/25 04:00 08/21/25 07:00 08/21/25 07:00 Temperature 97.4 F L Pulse Rate 103 H Respiratory Rate 18 Blood Pressure 123/71 Pulse Oximetry 92 95 Oxygen Delivery Method Room Air Room Air Oxygen Flow Rate 0 08/21/25 09:37 Temperature Pulse Rate 103 H Respiratory Rate Blood Pressure 123/71 Pulse Oximetry Oxygen Delivery Method Oxygen Flow Rate Fraction of Inspired Oxygen 28 SaO2/FiO2 Ratio 346 Oxygen Delivery Method Room Air Oxygen Flow Rate 0 Objective Labs 08/20/25 06:33 08/20/25 06:33 Labs: Laboratory Results - last 24 hr 08/21/25 04:38 C-Reactive Protein 7.9 H PFSH Medical History (Updated 08/14/25 @ 18:53 by Garcia Perdomo MD) History of nonmelanoma skin cancer Dyslipidemia Hypertension Impaired fasting glucose Family History Brother Age: 80 Pulmonary emphysema, unspecified emphysema type Father Age: 103 Alzheimer's dementia without behavioral disturbance, Alzheimer's disease of unspecified onset Grandmother Secondary hypertension, unspecified Glaucoma Mother Age: 102 Breast cancer genetic susceptibility Skin cancer Arthritis Grandmother Alzheimer's dementia without behavioral disturbance, Alzheimer's disease of unspecified onset Social History household members: spouse Smoking Status: Never smoker second hand exposure: No alcohol intake: current substance use type: does not use Discharge Plan Discharge orders & Medications Discharge Orders: Discharge (Order); Ordered 08/21/25 Ordered By: Keny Ayoub Prescriptions: New oxycodone 5 mg Tablet 5 mg PO Q3H PRN (Reason: Pain, Moderate (4-6)) Qty: 20 0RF cefazolin 2 gram recon soln 2 g IV Q8H 8 Days furosemide [Lasix] 40 mg tablet 40 mg PO DAILY Qty: 10 0RF Continued Adacel(Tdap Adolesn/Adult)(PF) 2 Lf-(2.5-5-3-5 mcg)-5Lf/0.5 mL syringe 0.5 ml IM ONCE Qty: 0.5 0RF fluticasone propionate [Flonase Allergy Relief] 50 mcg/actuation spray,suspension 2 spray NASAL DAILY PRN (Reason: allergy symptoms) atorvastatin 20 mg tablet 20 mg PO DAILY Qty: 90 3RF Pradaxa 75 mg capsule 75 mg PO BID Qty: 180 1RF metoprolol succinate 25 mg tablet extended release 24 hr 25 mg PO DAILY Qty: 90 3RF Follow up/Referrals: Soham Gonzalez ARNP [Primary Care Provider, Medical] Rey Espinoza MD [Physician, Orthopedic Surgery] - 08/29/25 Discharge Data Primary Care Provider: Soham Gonzalez
[2025-08-21 10:55] VITALS: BP 113/71; PULSE 108
--- NOTE | 2025-08-21 10:55 | CM.DPNOTE ---
Addendum entered by KAVITHA Grayson 08/21/25 12:54: DCP Update: VISUAL EDUCATION DIRECTOR coordinated with gracious FMA RN for pt follow up with PCP, AURY Mccauley on Tuesday, 08/27 at 12:00pm. VISUAL EDUCATION DIRECTOR provided printed appt reminder. Per Jeramie at [facility], PCP/AURY Mccauley able to confirm she will follow IV abx treatment post-discharge. ADALID Ash Original Note: DCP Continued: Reviewed EMR and team rounds for pt?s medical status. Per hospitalist, pt cleared to discharge if home IV services have been established. VISUAL EDUCATION DIRECTOR confirmed with [facility] that pt orders have been received, pt comfortable after teaching yesterday and they can be available for a 3:30pm teaching in pt home. VISUAL EDUCATION DIRECTOR entered room, introduced self and role. Pt at bedside, VISUAL EDUCATION DIRECTOR answered all pt questions to best of ability. Still pending pt PCP response of following abx orders post discharge, TCM team graciously assisting with coordination. VISUAL EDUCATION DIRECTOR notified hospitalist of above and he placed discharge orders. Plan: Anticipating dc home with spouse to transport on 08.21, [facility] to administer pt afternoon IV dose at home. CM Team will continue to follow for coordination of discharge plans. ADALID Ash
[2025-08-21 12:00] VITALS: BP 111/71; PULSE 87; RESP 15; TEMP 35.9; O2SAT 94
--- NOTE | 2025-08-21 14:19 | PC.NURSE ---
Patient was given discharge instructions and packet. Patient conveyed understanding of the instructions. He was given needed written prescriptions. Has left basilic midline for Iv therapy at home. PCT transported patient and his to personal vehicle via wheelchair.
== END 2025-08-21 14:44 | disposition home or self-care (01) | DRG 872 ==
LOC: ED 18:53 → AC 19:27
PROVIDERS: Family Medicine; Hospitalist; Orthopaedic Surgery Adult Reconstructive Orthopaedic Surgery; Pharmacist Pharmacist Clinician (PhC)/ Clinical Pharmacy Specialist; Admitting Provider Internal Medicine; Emergency Provider Emergency Medicine; PCP Registered Nurse Diabetes Educator; Referring Provider Emergency Medicine; Visit Provider Internal Medicine
DX: A41.9 Sepsis, unspecified organism (principal); L03.116 Cellulitis of left lower limb; I50.9 Heart failure, unspecified; I48.91 Unspecified atrial fibrillation; B95.4 Other streptococcus as the cause of diseases classified elsewhere; R09.02 Hypoxemia; E87.6 Hypokalemia; E78.5 Hyperlipidemia, unspecified; I11.0 Hypertensive heart disease with heart failure; Z79.01 Long term (current) use of anticoagulants; Z98.890 Other specified postprocedural states
CPT/HCPCS: 36415; 71045; 71260; 73610; 74177; 76882; 80048; 80053; 81003; 81015; 83605; 83880; 84145; 84484; 84550; 85025; 85610; 86140; 87040; 87077; 87147; 87154; 87186; 87637; 87797; 93005; 93010; 94760; 96365; 96367; 97110; 97116; 97162; 97166; 97530; 99232; 99284; 99285; J0689; J0696; J1938; J2543; J3375; J7050; Q9967

== ENCOUNTER 2025-08-24 00:55 | Emergency (ER) | payer OTHER, SELFPAY ==
[2025-08-14 21:52] VITALS: BMI 28.5
[2025-08-24 01:03] VITALS: BP 100/64; PULSE 73; RESP 16; TEMP 36.2; O2SAT 97; BMI 28.3
--- NOTE | 2025-08-24 01:10 | ED.RECABL ---
HPI - Recheck/Abnormal Lab/Rx General Chief Complaint: Recheck/Abnormal Lab/Rx Stated Complaint: Medication Consultation Time Seen by Provider: 08/24/25 01:10 Source: patient Mode of arrival: Ambulatory History of Present Illness HPI narrative: Patient is a 75-year-old male past medical history of hypertension, hyperlipidemia, comes into the ED with for issues with PICC line. Patient had a PICC line placed to his left basilic vein for administration of IV antibiotics, cefazolin, for infection to his left ankle. According to the they have tried flushing it multiple times but had inability to draw or push any medications. She states that the patient is due for his cefazolin. Patient denies any other symptoms. Related Data Home Medications ?Medication ?Instructions ?Recorded ?Confirmed fluticasone propionate 50 2 spray intranasal DAILY PRN 04/02/19 08/24/25 mcg/actuation nasal allergy symptoms spray,suspension (Flonase Allergy Relief) metoprolol succinate 25 mg 25 mg PO DAILY 08/24/25 08/24/25 tablet,extended release 24 hr Previous Rx's ?Medication ?Instructions ?Recorded atorvastatin 20 mg tablet 20 mg PO DAILY #90 tabs 07/28/21 dabigatran etexilate 75 mg capsule 75 mg PO BID #180 caps 07/28/21 (Pradaxa) cefazolin 2 gram intravenous 2 g IV Q8H 8 days 08/20/25 solution furosemide 40 mg tablet (Lasix) 40 mg PO DAILY #90 tabs 08/21/25 oxycodone 5 mg tablet 5 mg PO Q6H PRN pain #20 tabs 08/21/25 Allergies Allergy/AdvReac Type Severity Reaction Status Date / Time No Known Drug Allergies Allergy Verified 08/24/25 01:01 Review of Systems Review of Systems Narrative: General: Positive issue with left upper extremity PICC line, Denies fever, chills, weight loss HEENT: Denies headache, eye drainage, eye irritation, head trauma, sore throat, voice change Cardiovascular: Denies any chest pain, palpitations, tachycardia Respiratory: Denies any shortness of breath, cough, wheeze, stridor GI/: Denies any abdominal pain, nausea, vomiting, diarrhea, bright red blood per rectum, melanotic stools, urinary frequency, urinary retention, dysuria, hematuria MSK: Denies any joint pain, muscle pains, swelling Skin: Denies any rashes, lesions, discoloration Neuro: Denies any headache, lightheadedness, dizziness, fainting, weakness Psych: Denies SI/HI Patient History Medical History (Updated 08/24/25 @ 02:24 by Scott Zarate DO) History of nonmelanoma skin cancer Dyslipidemia Hypertension Impaired fasting glucose Family History Brother Age: 80 Pulmonary emphysema, unspecified emphysema type Father Age: 103 Alzheimer's dementia without behavioral disturbance, Alzheimer's disease of unspecified onset Grandmother Secondary hypertension, unspecified Glaucoma Mother Age: 102 Breast cancer genetic susceptibility Skin cancer Arthritis Grandmother Alzheimer's dementia without behavioral disturbance, Alzheimer's disease of unspecified onset Social History household members: spouse second hand exposure: No alcohol intake: current substance use type: does not use Smoking Status: Never smoker Exam Narrative Exam Narrative: General: Cooperative, well-developed, not in acute distress HEENT: Normocephalic, atraumatic, PERRLA, normal sclera, eyelids normal Neck: Active full range of motion, atraumatic Chest: Normal to inspection, negative crepitus, no overlying erythema ecchymosis Respiratory: Normal respiratory effort, not in acute respiratory distress, clear to auscultation bilaterally negative cough, wheeze, tachypnea, rhonchi, rales Cardiology: Regular rate rhythm negative gallop, murmur, rubs GI/: No tenderness to palpation, soft, non rigid, normal to inspection, exam deferred MSK: Full active range of motion in all 4 extremities, atraumatic, no tenderness to palpation of any bony prominences Skin: No rashes or lesions noted, PICC line noted to the left upper extremity, unable to pull back any blood despite multiple attempts at flushing. No surrounding erythema no pain to palpation Neuro: Alert awake oriented x3, moves all 4 extremities spontaneously, cranial nerves intact, able to answer all questions appropriately follows commands appropriately Psych: Cooperative, negative suicidal or homicidal ideations Initial Vital Signs Initial Vital Signs: Vital Signs Temperature 97.2 F L 08/24/25 01:03 Pulse Rate 73 08/24/25 01:03 Respiratory Rate 16 08/24/25 01:03 Blood Pressure 100/64 08/24/25 01:03 Pulse Oximetry 97 08/24/25 01:03 Oxygen Delivery Method Room Air 08/24/25 01:03 Course Orders Ordered: ED Orders 08/24/25 01:55 Consult After Hours PICC Line RN Stat Vital Signs Vital signs: Vital Signs - 8 hr 08/24/25 01:03 Temperature 97.2 F L Pulse Rate 73 Respiratory Rate 16 Blood Pressure 100/64 Pulse Oximetry 97 Oxygen Delivery Method Room Air MDM - Recheck/Abnormal Lab/Rx MDM Narrative Medical decision making narrative: 75-year-old male with a history of hyperlipidemia hypertension presenting for issues with PICC line to his left upper extremity. He is currently prescribed IV cefazolin for history of left ankle cellulitis, according to and patient they had issues with this yesterday but was able to administer it however tonight when he was due for his medication at midnight was unable to pull any blood and/or administer any medication. Multiple attempts by nursing staff here at bedside unable to push or draw anything from the PICC line. We did administer patient's cefazolin here, reached out to the PICC team, they were able to reposition it and had returning function of the PICC line to the left upper extremity, they were discharged home with outpatient follow up and strict return precautions 0156: Received call back from the PICC team they state that PICC RN will come in and place the PICC ETA [id number] Discharge Plan Departure Patient Disposition: Home Clinical Impression: Occluded PICC line Instructions: Peripherally Inserted Central Catheter Activity Restrictions/Additional Instructions: Please read the discharge instructions sheet carefully and bring all papers to all doctor follow-up visits, as it may contain information that your doctor may want to see. Disease processes change and evolve, if your symptoms worsen or if you develop any new symptoms that are concerning to you please return for evaluation. Your evaluation today does not show any evidence of any life-threatening/serious illnesses requiring admission to the hospital or surgery. Please follow-up with your doctor for re-evaluation in approximately 1 day. Seek immediate medical attention for any worrisome symptoms. *If you do not have a primary care provider please contact the [facility] Resource line at [phone]. They will ask some questions about your medical history and help get you set up with a doctor in the community. Prescriptions: No Action fluticasone propionate [Flonase Allergy Relief] 50 mcg/actuation spray,suspension 2 spray NASAL DAILY PRN (Reason: allergy symptoms) atorvastatin 20 mg tablet 20 mg PO DAILY Qty: 90 3RF Pradaxa 75 mg capsule 75 mg PO BID Qty: 180 1RF cefazolin 2 gram recon soln 2 g IV Q8H 8 Days oxycodone 5 mg tablet 5 mg PO Q6H PRN (Reason: pain) Qty: 20 0RF furosemide [Lasix] 40 mg tablet 40 mg PO DAILY Qty: 90 0RF metoprolol succinate 25 mg tablet extended release 24 hr 25 mg PO DAILY Referrals: Soham Gonzalez ARNP [Primary Care Provider, Medical] Stand Alone Forms: Patient Portal/API
--- NOTE | 2025-08-24 01:29 | PC.NURSE ---
Home infusion of Cefazolin 2gm/20ml given slow push over 10 m
--- NOTE | 2025-08-24 01:30 | PC.NURSE ---
Home infusion of Cefazolin 2gm/20ml given slow push over 10 minutes as ordered on syringe and with verbal order from Dr. Bonner
--- NOTE | 2025-08-24 02:03 | PC.NURSE ---
Pt placed in ED stretcher with warm blankets for comfort. given recliner and warm blankets while waiting for PICC RN.
--- NOTE | 2025-08-24 04:00 | PC.NURSE ---
PICC RN at bedside
[2025-08-24 05:29] VITALS: BP 104/69; PULSE 62; RESP 18; O2SAT 94
--- NOTE | 2025-08-25 11:34 | CM.SWNOTE ---
ED PROJ MGR Follow Up Note: Received note that pt came to the ED overnight and would like to speak with Clinical Outcomes Manager, Chikis Vazquez ph# [phone] re: Home Health starting care. Per EMR, pt discharged on 08/21 from Acute Care and returned on 08/24 to have PICC line replaced as it dislodged. PROJ MGR called pt , Chikis. Pt states she feels overwhelmed and was hopeful that home health could establish care at the end of the week as discussed during discharge planning. PROJ MGR assured pt of communications with [facility] and that there was an estimated start date of 08/23 via email communication. PROJ MGR provided [facility] office phone number so she can call if necessary for follow up. PROJ MGR called [facility] and spoke with RN On-Call, Andreia. PROJ MGR noted above information to [facility] and it was reported that this will be relayed to their Senior Manager [employer] home care liaison for review vs. it will be returned to admin to review first thing on Tuesday morning. PROJ MGR called pt again and reviewed what was stated by [facility], encouraged her to await their call. JP AshSW
== END 2025-08-24 05:32 | disposition home or self-care (01) ==
PROVIDERS: Emergency Provider Student in an Organized Health Care Education/Training Program; PCP Registered Nurse Diabetes Educator
DX: T82.898A Other specified complication of vascular prosthetic devices, implants and grafts, initial encounter (principal)
CPT/HCPCS: 99281

== ENCOUNTER → 2025-08-29 13:16 | Outpatient (CLI) | payer OTHER, SELFPAY ==
[2025-08-14 21:52] VITALS: BMI 28.5
[2025-08-29 13:40] LABS: Add Manual Diff / Slide Review NO; Hematocrit 41.4 % (41-53); Hemoglobin 13.8 g/dL (13.5-17.5); Lymphocytes Absolute Auto 1000 /uL (1100-4500); Mean Corpuscular HGB Conc 33.3 % (30-36); Mean Corpuscular Hemoglobin 28.5 PG (26-34); Mean Corpuscular Volume 85.5 fL (80-100); Platelet Count 371 X10^3/uL (150-400)
== END ==
PROVIDERS: PCP Registered Nurse Diabetes Educator; Referring Provider Registered Nurse Diabetes Educator; Visit Provider Registered Nurse Diabetes Educator
DX: E78.5 Hyperlipidemia, unspecified (principal)
CPT/HCPCS: 85025

== ENCOUNTER → 2025-09-30 09:57 | Outpatient (CLI) | payer OTHER, SELFPAY ==
[2025-08-14 21:52] VITALS: BMI 28.5
[2025-09-30 10:46] LABS: Hemoglobin A1C% w Est Avg Glu 6.1 % (4.0-6.0)
[2025-09-30 10:54] LABS: Glucose 108 mg/dL (70-99)
== END ==
PROVIDERS: PCP Registered Nurse Diabetes Educator; Referring Provider Registered Nurse Diabetes Educator; Visit Provider Registered Nurse Diabetes Educator
DX: R73.9 Hyperglycemia, unspecified (principal)
CPT/HCPCS: 36415; 82947; 83036